=== PATIENT | female | born 1970 | race Hispanic/Latino ===

== ENCOUNTER 2017-05-15 20:35 | Emergency (ER) | payer BC ==
[~2017-05-15] VITALS: Ht 172.7 cm; Wt 79.8 kg
[2017-05-15 21:48] LABS: BASOPHILS % 0.5 % (0.0-1.0); EOSINOPHILS # (AUTO) 0.1 (0.0-0.4); EOSINOPHILS % 1.2 % (0.0-6.0); HEMOGLOBIN 12.6 g/dL (12.0-16.0); LYMPHOCYTES # (AUTO) 2.9 (1.0-3.2); MEAN CORPUSCULAR HEMOGLOBIN 28.5 pg (28-32); MEAN CORPUSCULAR HGB CONC 33.2 g/dL (31-35); MONOCYTES # (AUTO) 0.7 (0.2-0.8); MONOCYTES % 8.3 % (4.4-11.3); NEUTROPHILS # (AUTO) 4.8 (2.1-6.9); NEUTROPHILS % 55.6 % (38.7-80.0); PLATELET COUNT 283 x10e3/uL (140-360); RED BLOOD COUNT 4.42 x10e6/uL (3.6-5.1); RED CELL DISTRIBUTION WIDTH 13.8 % (11.7-14.4)
[2017-05-15 21:49] LABS: BILIRUBIN,URINE NEGATIVE (NEGATIVE); KETONES,URINE NEGATIVE (NEGATIVE); LEUKOCYTE ESTERASE ,URINE NEGATIVE (NEGATIVE); NITRITE,URINE NEGATIVE (NEGATIVE); PROTEIN,URINE DIPSTICK NEGATIVE (NEGATIVE); URINE UROBILINOGEN 0.2 mg/dL (0.2 - 1)
[2017-05-15 21:50] LABS: CLARITY,URINE CLEAR (CLEAR); COLOR,URINE YELLOW (YELLOW)
[2017-05-15 22:03] LABS: ALANINE AMINOTRANSFERASE 31 IU/L (0-55); ALBUMIN 3.9 g/dL (3.5-5.0); ALKALINE PHOSPHATASE 88 IU/L (40-150); AMYLASE 61 U/L (25-125); BLOOD UREA NITROGEN 6 mg/dL (7-26); BUN/CREATININE RATIO 8 (6-25); CALCIUM 8.8 mg/dL (8.4-10.2); CARBON DIOXIDE 26 mmol/L (22-29); CHLORIDE 104 mmol/L (98-107); CREATININE, SERUM 0.73 mg/dL (0.57-1.11); EST GLOMERULAR FILTRATION RATE > 60 ML/MIN (60-); GLUCOSE 101 mg/dL (74-118); LIPASE 28 U/L (8-78); SODIUM 139 mmol/L (136-145)
--- NOTE | 2017-05-15 23:17 | Diagnostic Imaging Report ---
EXAM: Right Upper Quadrant Ultrasound INDICATION: Right upper quadrant pain COMPARISON: None. TECHNIQUE: Transverse and longitudinal images of the right upper abdomen were obtained. FINDINGS: Liver: Size: 16.8 cm in the right midclavicular line, large Appearance: Increased echogenicity, smooth contour Mass: No focal masses Gallbladder: Stones/Sludge: None Wall: 0.3 cm Appearance: No wall thickening, pericholecystic fluid or hydrops. Sonographic Catalan's Sign: Negative Bile Ducts: Intrahepatic Ducts: No dilatation Extrahepatic Ducts: Common bile duct measures 0.3 cm, no dilatation Pancreas: Visualized portions of the pancreatic head, neck and proximal body are normal. Kidneys: Length: Right 10.3 cm Echogenicity: Normal Collecting System: No hydronephrosis Stone: None Cyst/Mass: None Vessels: Aorta: Visualized portions are normal Inferior Vena Cava: Visualized portions are normal Main Portal Vein: 1.0 cm, normal size with hepatopetal flow. Free Fluid: No ascites or pleural effusion IMPRESSION: Hepatomegaly and diffuse hepatic steatosis. Signed by: Dr. Dane Aguillon M.D. on 05/15/2017 11:13 PM
== END 2017-05-16 00:10 | disposition home or self-care (01) ==
LOC: ER 20:35
DX: R10.11 Right upper quadrant pain (principal); R10.13 Epigastric pain; R11.0 Nausea; R19.7 Diarrhea, unspecified
CPT/HCPCS: 36415; 76705; 80053; 81001; 82150; 83690; 85025; 99284

== ENCOUNTER → 2017-06-15 | Outpatient (CLI) | payer BC ==
[~2017-06-15] MED LIST: SINCALIDE 3 MCG/VIAL INJ ONE
--- NOTE | 2017-06-15 15:48 | Diagnostic Imaging Report ---
Hepatobiliary Scan with Gallbladder Ejection Fraction Clinical information: 46 F with RUQ abdominal pain, worsening over the past 1 month Technique: Following intravenous administration of 7.0 millicuries of Tc-99m mebrofenin, dynamic images of the abdomen in the anterior projection were obtained through 25 minutes. Sincalide (CCK analog) 1.7 micrograms was administered intravenously over 30 minutes with additional imaging for determination of gallbladder ejection fraction. Discussion: Perfusion of the liver is normal. Extraction of tracer by the liver parenchyma is normal. Tracer appears promptly within the biliary tract. The gallbladder begins to fill by 5 minutes post injection of tracer and fills adequately. Tracer is seen in the small bowel by 19 minutes. The gallbladder ejection fraction with sincalide is 28% (normal greater than 40%). Impression: 1. Filling of the gallbladder excludes acute cystic duct obstruction/acute cholecystitis. 2. The decreased gallbladder ejection fraction of 28% supports the clinical diagnosis of chronic cholecystitis/gallbladder dyskinesia. Signed by: Dr. Anh Ramirez M.D. on 06/15/2017 3:45 PM
== END | disposition home or self-care (01) ==
LOC: NM 06:36
PROVIDERS: ATTEND Family Medicine
DX: K81.1 Chronic cholecystitis (principal); K82.8 Other specified diseases of gallbladder
CPT/HCPCS: 78227; A9537; J2805

== ENCOUNTER → 2017-08-06 | Day surgery (SDC) | payer BC ==
[~2017-08-06] MED LIST changes: +FENTANYL CITRATE/PF 100MCG/2 ML INJ ONE; +FLUOXETINE HCL20 MG PO; +LIDOCAINE HCL 2% LOCAL INJ 5 ML SDV VIAL INJ ONE; +METFORMIN HCL500 MG PO; +METOCLOPRAMIDE HCL 10 MG/2ML VIAL ONE; +MIDAZOLAM HCL 2 MG/2 ML VIAL ONE; +PROPOFOL IV EMULSION 10 MG/ML 50 ML VIAL ONE; -SINCALIDE 3 MCG/VIAL INJ ONE
--- OUTSIDE RECORDS SUMMARY | 2017-08-06 11:47 | XMS REPORT | Continuity of Care Document ---
Author Author [facility] Organization [facility] Address [address] [place] [address] Phone Unavailable Care Team Providers Care Ore Mixer Name Role Phone NATE SPRINGER PCP Advance Directives No advance directive information available. Problems No problem information available. Medications No medication information available. Social History No social history information available. Hospital Discharge Instructions No hospital discharge instruction information available. Plan of Care Discharge Date 05/16/17 12:10am Disposition HOME, SELF-CARE Condition at Discharge Stable Instructions/Education Provided Abdominal Pain - Adult Forms Provided Work/School Excuse Prescriptions See Medication Section Referrals NATE SPRINGER Order Date: BONNIE Address: [address] [place] [address] [place] [address] Additional Instructions/Education TAKE MEDICATIONS PRESCRIBED FOLLOW-UP WITH YOUR PRIMARY CARE PROVIDER ON THURSDAY, YOU NEED TO GET SCHEDULED FOR AN OUTPATIENT HIDA SCAN LOW FAT DIET, NO FRIED FOODS, NO FATTY FOODS Functional Status No functional status information available. Allergies, Adverse Reactions, Alerts No known allergies. Immunizations No immunization information available. Vital Signs Acute Vital Signs Vital Response Date/Time Height 5 ft 8 in 05/15/2017 9:23pm Weight 176 lb 05/15/2017 9:23pm Body Mass Index 26.8 kg/m^2 05/15/2017 9:23pm Results Laboratory Results Test Name Result Units Flags Reference Collection Date/Time Result Date/ Time Comments White Blood Count 8.57 x10e3/uL 4.8-10.8 05/15/2017 9:40pm 05/15/2017 9 :48pm Red Blood Count 4.42 x10e6/uL 3.6-5.1 05/15/2017 9:40pm 05/15/2017 9: 48pm Hemoglobin 12.6 g/dL 12.0-16.0 05/15/2017 9:40pm 05/15/2017 9:48pm Hematocrit 38.0 % 34.2-44.1 05/15/2017 9:40pm 05/15/2017 9:48pm Mean Corpuscular Volume 86.0 fL 81-99 05/15/2017 9:40pm 05/15/2017 9: 48pm Mean Corpuscular Hemoglobin 28.5 pg 28-32 05/15/2017 9:40pm 05/15/2017 9:48pm Mean Corpuscular Hemoglobin Concent 33.2 g/dL 31-35 05/15/2017 9:40pm 05/15/2017 9:48pm Red Cell Distribution Width 13.8 % 11.7-14.4 05/15/2017 9:40pm 2017 9:48pm Platelet Count 283 x10e3/uL 140-360 05/15/2017 9:40pm 05/15/2017 9: 48pm Neutrophils (%) (Auto) 55.6 % 38.7-80.0 05/15/2017 9:40pm 05/15/2017 9: 48pm Lymphocytes (%) (Auto) 34.0 % 18.0-39.1 05/15/2017 9:40pm 05/15/2017 9: 48pm Monocytes (%) (Auto) 8.3 % 4.4-11.3 05/15/2017 9:40pm 05/15/2017 9: 48pm Eosinophils (%) (Auto) 1.2 % 0.0-6.0 05/15/2017 9:40pm 05/15/2017 9: 48pm Basophils (%) (Auto) 0.5 % 0.0-1.0 05/15/2017 9:40pm 05/15/2017 9:48pm IM GRANULOCYTES % 0.4 % 0.0-1.0 05/15/2017 9:40pm 05/15/2017 9:48pm Neutrophils # (Auto) 4.8 2.1-6.9 05/15/2017 9:40pm 05/15/2017 9:48pm Lymphocytes # (Auto) 2.9 1.0-3.2 05/15/2017 9:40pm 05/15/2017 9:48pm Monocytes # (Auto) 0.7 0.2-0.8 05/15/2017 9:40pm 05/15/2017 9:48pm Eosinophils # (Auto) 0.1 0.0-0.4 05/15/2017 9:40pm 05/15/2017 9:48pm Basophils # (Auto) 0.0 0.0-0.1 05/15/2017 9:40pm 05/15/2017 9:48pm Absolute Immature Granulocyte (auto 0.03 x10e3/uL 0-0.1 05/15/2017 9: 40pm 05/15/2017 9:48pm Urine Color YELLOW YELLOW 05/15/2017 9:40pm 05/15/2017 9:50pm Urine Clarity CLEAR CLEAR 05/15/2017 9:40pm 05/15/2017 9:50pm Urine Specific [place] 1.010 1.010-1.025 05/15/2017 9:40pm 2017 9:50pm Urine pH 6 5 - 7 05/15/2017 9:40pm 05/15/2017 9:50pm Urine Leukocyte Esterase NEGATIVE NEGATIVE 05/15/2017 9:40pm 2017 9:50pm Urine Nitrite NEGATIVE NEGATIVE 05/15/2017 9:40pm 05/15/2017 9:50pm Urine Protein NEGATIVE NEGATIVE 05/15/2017 9:40pm 05/15/2017 9:50pm Urine Glucose (UA) NEGATIVE NEGATIVE 05/15/2017 9:40pm 05/15/2017 9: 50pm Urine Ketones NEGATIVE NEGATIVE 05/15/2017 9:40pm 05/15/2017 9:50pm Urine Urobilinogen 0.2 mg/dL 0.2 - 1 05/15/2017 9:40pm 05/15/2017 9: 50pm Urine Bilirubin NEGATIVE NEGATIVE 05/15/2017 9:40pm 05/15/2017 9: 50pm Urine Blood NEGATIVE NEGATIVE 05/15/2017 9:40pm 05/15/2017 9:50pm Urine WBC NONE /HPF 0-5 05/15/2017 9:40pm 05/15/2017 10:05pm Urine RBC NONE /HPF 0-5 05/15/2017 9:40pm 05/15/2017 10:05pm Urine Bacteria NONE /HPF NONE 05/15/2017 9:40pm 05/15/2017 10:05pm Urine Epithelial Cells NONE /LPF NONE 05/15/2017 9:40pm 05/15/2017 10: 05pm Sodium Level 139 mmol/L 136-145 05/15/2017 9:40pm 05/15/2017 10:04pm Potassium Level 4.0 mmol/L 3.5-5.1 05/15/2017 9:40pm 05/15/2017 10: 04pm Chloride Level 104 mmol/L 98-107 05/15/2017 9:40pm 05/15/2017 10:04pm Carbon Dioxide Level 26 mmol/L 22-29 05/15/2017 9:40pm 05/15/2017 10: 04pm Anion Gap 13.0 mmol/L 8-16 05/15/2017 9:40pm 05/15/2017 10:04pm Blood Urea Nitrogen 6 mg/dL L 7-26 05/15/2017 9:40pm 05/15/2017 10:04pm Creatinine 0.73 mg/dL 0.57-1.11 05/15/2017 9:40pm 05/15/2017 10:04pm BUN/Creatinine Ratio 8 6-25 05/15/2017 9:40pm 05/15/2017 10:04pm Estimat Glomerular Filtration Rate > 60 ML/MIN 60- 05/15/2017 9:40pm 10:04pm Ranges were taken from the National Kidney Disease Education Program and the National Kidney Foundation literature. Reference ranges: 60 or greater: Normal 16-59 (for 3 consecutive months): Chronic kidney disease 15 or less: Kidney failure Glucose Level 101 mg/dL 74-118 05/15/2017 9:40pm 05/15/2017 10:04pm Calcium Level 8.8 mg/dL 8.4-10.2 05/15/2017 9:40pm 05/15/2017 10:04pm Total Bilirubin < 0.3 mg/dL 0.2-1.2 05/15/2017 9:40pm 05/15/2017 10: 04pm Aspartate Amino Transf (AST/SGOT) 27 IU/L 5-34 05/15/2017 9:40pm 2017 10:04pm Alanine Aminotransferase (ALT/SGPT) 31 IU/L 0-55 05/15/2017 9:40pm 11/2017 10:04pm Total Protein 8.0 g/dL 6.5-8.1 05/15/2017 9:40pm 05/15/2017 10:04pm Albumin 3.9 g/dL 3.5-5.0 05/15/2017 9:40pm 05/15/2017 10:04pm Globulin 4.1 g/dL H 2.3-3.5 05/15/2017 9:40pm 05/15/2017 10:04pm Albumin/Globulin Ratio 1.0 0.8-2.0 05/15/2017 9:40pm 05/15/2017 10: 04pm Alkaline Phosphatase 88 IU/L 40-150 05/15/2017 9:40pm 05/15/2017 10: 04pm Amylase Level 61 U/L 25-125 05/15/2017 9:40pm 05/15/2017 10:04pm Lipase 28 U/L 8-78 05/15/2017 9:40pm 05/15/2017 10:04pm Procedures Procedure Status Date Provider(s) US gallbladder Active 05/15/17 DOT TRACY MD Encounters Encounter Location Arrival/Admit Date Discharge/Depart Date Attending Provider Departed Emergency Room [facility] 05/15/17 8:35pm 12:10am DOT TRACY MD
--- OUTSIDE RECORDS SUMMARY | 2017-08-06 11:47 | XMS REPORT ---
Author Author [facility] Address Unknown Phone Unavailable Care Team Providers Care Crown Ironer Name Role Phone NATE SPRINGER Unavailable Unavailable DOT TRACY Unavailable Unavailable Problems This patient has no known problems. Allergies, Adverse Reactions, Alerts This patient has no known allergies or adverse reactions. Medications This patient has no known medications. Results Test Description Test Time Test Comments Text Results Atomic Results Result Comments HEPTOBILIARY W PHARM [place] [address] Patient Name: IVETTE DYSON MR #: [id number] : 1970 Age/Sex: 46/F Req #: [id number] [facility] Physician: Ordered by: NATE SPRINGER Report #: [id number] Location: [place] Room/Bed: Procedure: [id number] NM/HEPTOBILIARY W PHARM Exam Date: 06/15/17 Exam Time: 08 REPORT STATUS: Signed Hepatobiliary Scan with Gallbladder Ejection Fraction Clinical information: 46 F with RUQ abdominal pain, worsening over the past 1 month Technique: Following intravenous administration of 7.0 millicuries of Tc-99m mebrofenin, dynamic images of the abdomen in the anterior projection were obtained through 25 minutes. Sincalide (CCK analog) 1.7 micrograms was administered intravenously over 30 minutes with additional imaging for determination of gallbladder ejection fraction. Discussion: Perfusion of the liver is normal. Extraction of tracer by the liver parenchyma is normal. Tracer appears promptly within the biliary tract. The gallbladder begins to fill by 5 minutes post injection of tracer and fills adequately. Tracer is seen in the small bowel by 19 minutes. The gallbladder ejection fraction with sincalide is 28% (normal greater than 40%). Impression: 1. Filling of the gallbladder excludes acute cystic duct obstruction/acute cholecystitis. 2. The decreased gallbladder ejection fraction of 28% supports the clinical diagnosis of chronic cholecystitis/gallbladder dyskinesia. Signed by: Dr. Dilip Ramirez M.D. on 06/15/2017 3:45 PM Dictated By: DILIP RAMIREZ MD 1548 COPY TO: NATE SPRINGER GALLBLADDER [place] [address] Patient Name: IVETTE GONZALEZ MR #: [id number] : 1970 Age/Sex: 46/F Req #: [id number] Adm Physician: Ordered by: DOT TRACY MD Report #: [id number] Location: ER Room/Bed: ___ Procedure: [id number] US/US GALLBLADDER Exam Date: 05/15/17 Exam Time: 2 REPORT STATUS: Signed EXAM: Right Upper Quadrant Ultrasound INDICATION: Right upper quadrant pain COMPARISON : None. TECHNIQUE: Transverse and longitudinal images of the right upper abdomen were obtained. FINDINGS: Liver: Size: 16.8 cm in the right midclavicular line, large Appearance: Increased echogenicity, smooth contour Mass: No focal masses Gallbladder: Stones/Sludge: None Wall: 0.3 cm Appearance: No wall thickening, pericholecystic fluid or hydrops. Sonographic Catalan's Sign: Negative Bile Ducts: Intrahepatic Ducts: No dilatation Extrahepatic Ducts: Common bile duct measures 0.3 cm, no dilatation Pancreas: Visualized portions of the pancreatic head, neck and proximal body are normal. Kidneys: Length: Right 10.3 cm Echogenicity: Normal Collecting System: No hydronephrosis Stone: None Cyst/Mass: None Vessels: Aorta: Visualized portions are normal Inferior Vena Cava: Visualized portions are normal Main Portal Vein: 1.0 cm, normal size with hepatopetal flow. Free Fluid: No ascites or pleural effusion IMPRESSION: Hepatomegaly and diffuse hepatic steatosis. Signed by: Dr. Dane Aguillon M.D. on 05/15/2017 11:13 PM Dictated By: DANE PERSON MD 0927 COPY TO: DOT TRACY MD
--- NOTE | 2017-08-06 15:04 | Operative Report ---
DATE OF PROCEDURE: August 06, 2017 REFERRING PHYSICIANS: Efrain Bella MD, and Alek Wesley MD PROCEDURE PERFORMED: Esophagogastroduodenoscopy with biopsies. INDICATIONS FOR EGD: Nausea, heartburn, and excessive belching. MEDICATION: Patient was done under MAC. Please see anesthesiologist's note. PROCEDURE: With the patient in the left lateral decubitus position, the flexible fiberoptic Olympus gastroscope was introduced into the esophagus under direct visualization without any difficulty. There was some patchy erythema noted in the distal esophagus. The scope was then advanced with ease into the stomach, and mucosa overlying the antrum and the body revealed some patchy erythema and low-grade to moderate edema, and biopsies were obtained and sent to stain for H. pylori. The pylorus was of normal contour and shape. It was intubated with ease, and the scope was advanced all the way to the 2nd portion of the duodenum. The scope was then withdrawn slowly. Mucosa overlying the proximal 2nd portion and the duodenal bulb appeared to be within normal limits. The scope was then withdrawn back into the stomach and retroflexed, and mucosa overlying the fundus and the cardia appeared to be within normal limits. The scope was then straightened out. It was subsequently withdrawn. Patient tolerated the procedure well. IMPRESSION 1. Distal esophagitis, mild. 2. Gastritis, biopsied. Biopsies sent to stain for H. pylori. PLAN: Follow up histology. Initiate Protonix 40 mg 1 p.o. q.a.m. a.c. Job#: [id number] cc:MD ALEK WOO MD
== END | disposition home or self-care (01) ==
LOC: OR 11:45
PROVIDERS: ATTEND Internal Medicine Gastroenterology
DX: K29.70 Gastritis, unspecified, without bleeding (principal); K20.9 Esophagitis, unspecified; K21.9 Gastro-esophageal reflux disease without esophagitis; K82.8 Other specified diseases of gallbladder; E11.9 Type 2 diabetes mellitus without complications; R16.0 Hepatomegaly, not elsewhere classified; K76.0 Fatty (change of) liver, not elsewhere classified; F41.9 Anxiety disorder, unspecified; Z01.810 Encounter for preprocedural cardiovascular examination; Z79.84 Long term (current) use of oral hypoglycemic drugs
CPT/HCPCS: 36415; 43239; 81025; 82948; 93005; J2001; J2250; J2765

== ENCOUNTER → 2017-12-02 | Day surgery (SDC) | payer BC ==
[~2017-12-02] MED LIST changes: +HYOSCYAMINE SULFATE 0.5 MG/ML AMP ONE; -LIDOCAINE HCL 2% LOCAL INJ 5 ML SDV VIAL INJ ONE; -METOCLOPRAMIDE HCL 10 MG/2ML VIAL ONE
[2017-12-02 14:35] VITALS: BP 115/82
--- NOTE | 2017-12-02 14:51 | Operative Report ---
DATE OF PROCEDURE: December 02, 2017 REFERRING PHYSICIAN: Dr. Nate Springer. PROCEDURE PERFORMED: Colonoscopy with biopsies. INDICATIONS FOR COLONOSCOPY: Lower abdominal pain, fecal urgency. MEDICATION: Patient was done under MAC. Please see anesthesiologist's note. PROCEDURE: Patient in left lateral decubitus position. Flexible fiberoptic Olympus colonoscope was inserted into the rectum with ease and advanced all the way to the cecum. Mucosa overlying the cecum appeared to be within normal limits. The ileocecal valve was intubated and the scope was advanced into the terminal ileum. Biopsies were obtained. The scope was then withdrawn back into the colon. It was then withdrawn slowly. Mucosa overlying the ascending, transverse appeared to be within normal limits. Mild patchy inflammatory changes were noted in the left colon and random biopsies were obtained. The scope was then retroflexed into the distal rectum and small internal hemorrhoids were noted, none of which was actively bleeding. The scope was then straightened out and it was subsequently withdrawn. Patient tolerated the procedure well. IMPRESSIONS 1. Mild patchy left-sided colitis. 2. Internal hemorrhoids, none actively bleeding. PLAN: Follow up histology. Initiate Bentyl 10 mg 1 p.o. t.i.d. VSL #3 1 p.o. daily. Patient might benefit from a followup colonoscopy in 5 years. Job#: [id number] cc:NATE SPRINGER MD
== END | disposition home or self-care (01) ==
LOC: OR 10:43
PROVIDERS: ATTEND Internal Medicine Gastroenterology
DX: K64.8 Other hemorrhoids (principal); K51.50 Left sided colitis without complications; R15.2 Fecal urgency; R10.30 Lower abdominal pain, unspecified; E11.9 Type 2 diabetes mellitus without complications; G47.419 Narcolepsy without cataplexy; F32.9 Major depressive disorder, single episode, unspecified; Z79.84 Long term (current) use of oral hypoglycemic drugs
CPT/HCPCS: 36415; 45380; 81025; 82948; J1980; J2250; 45378

== ENCOUNTER 2018-06-25 17:10 | Emergency (ER) | payer BC ==
[~2018-06-25] VITALS: Ht 172.7 cm; Wt 79.8 kg
[~2018-06-25 17:10] MED LIST changes: -FENTANYL CITRATE/PF 100MCG/2 ML INJ ONE; -HYOSCYAMINE SULFATE 0.5 MG/ML AMP ONE; -MIDAZOLAM HCL 2 MG/2 ML VIAL ONE; -PROPOFOL IV EMULSION 10 MG/ML 50 ML VIAL ONE
--- NOTE | 2018-06-25 18:25 | Diagnostic Imaging Report ---
Examination: Single AP view of the chest. COMPARISON: None. INDICATION: Chest pain, shortness of breath DISCUSSION: Lines/tubes: None. Lungs: No pneumonia or pulmonary edema. Pleura: No pleural effusion or pneumothorax. Heart and mediastinum: The heart and the mediastinum are unremarkable. Bones and soft tissues: No acute bony abnormalities. IMPRESSION: 1. No acute cardiopulmonary abnormalities. Signed by: Dr. Etienne Humphrey M.D. on 06/25/2018 6:22 PM
[2018-06-25 19:52] VITALS: BP 122/80
== END 2018-06-25 20:09 | disposition home or self-care (01) ==
LOC: ER 17:10
DX: J20.9 Acute bronchitis, unspecified (principal); J30.1 Allergic rhinitis due to pollen; E11.9 Type 2 diabetes mellitus without complications; G47.419 Narcolepsy without cataplexy; Z79.84 Long term (current) use of oral hypoglycemic drugs
CPT/HCPCS: 71045; 93005; 99283

== ENCOUNTER 2018-08-06 17:56 | Emergency (ER) | payer BC ==
[~2018-08-06] VITALS: Ht 165.1 cm; Wt 79.8 kg
[2018-08-06 18:35] LABS: BASOPHILS % 0.5 % (0.0-1.0); EOSINOPHILS # (AUTO) 0.1 (0.0-0.4); EOSINOPHILS % 1.3 % (0.0-6.0); HEMATOCRIT 38.8 % (34.2-44.1); LYMPHOCYTES % 25.6 % (18.0-39.1); MEAN CORPUSCULAR HEMOGLOBIN 28.6 pg (28-32); MEAN CORPUSCULAR HGB CONC 33.5 g/dL (31-35); MEAN CORPUSCULAR VOLUME 85.5 fL (81-99); MONOCYTES # (AUTO) 0.5 (0.2-0.8); MONOCYTES % 6.6 % (4.4-11.3); NEUTROPHILS # (AUTO) 5.1 (2.1-6.9); NEUTROPHILS % 65.5 % (38.7-80.0); PLATELET COUNT 284 x10e3/uL (140-360); RED BLOOD COUNT 4.54 x10e6/uL (3.6-5.1); RED CELL DISTRIBUTION WIDTH 16.2 % (11.7-14.4)
[2018-08-06] MEDS ORDERED: MORPHINE SULFATE 2 MG/ML SYR 1ML IV STA (18:52)
[2018-08-06] MEDS ORDERED: ONDANSETRON HCL INJ 2MG/ML 2ML 2 MG/ML VIAL IV ONE (18:52)
[2018-08-06] MEDS ORDERED: SODIUM CHLORIDE 0.9% 1000ML 1,000 ML IV ONE (19:00)
[2018-08-06] MEDS ORDERED: MORPHINE SULFATE INJ 4 MG/ML INJ 1ML IV ONE (19:00)
[2018-08-06 19:09] LABS: ALANINE AMINOTRANSFERASE 43 IU/L (0-55); ALBUMIN 3.4 g/dL (3.5-5.0); ALKALINE PHOSPHATASE 89 IU/L (40-150); ANION GAP 10.7 mmol/L (8-16); BLOOD UREA NITROGEN 7 mg/dL (7-26); BUN/CREATININE RATIO 9 (6-25); CALCIUM 8.8 mg/dL (8.4-10.2); CARBON DIOXIDE 27 mmol/L (22-29); CHLORIDE 102 mmol/L (98-107); CREATININE, SERUM 0.77 mg/dL (0.57-1.11); EST GLOMERULAR FILTRATION RATE > 60 ML/MIN (60-); GLUCOSE 193 mg/dL (74-118); POTASSIUM 3.7 mmol/L (3.5-5.1); SODIUM 136 mmol/L (136-145)
--- NOTE | 2018-08-06 20:31 | NUR ---
urine re-collected and sent off to the lab.
[2018-08-06 20:34] LABS: BILIRUBIN,URINE NEGATIVE (NEGATIVE); CLARITY,URINE CLEAR (CLEAR); COLOR,URINE YELLOW (YELLOW); KETONES,URINE NEGATIVE (NEGATIVE); LEUKOCYTE ESTERASE ,URINE NEGATIVE (NEGATIVE); NITRITE,URINE NEGATIVE (NEGATIVE); PROTEIN,URINE DIPSTICK NEGATIVE (NEGATIVE); URINE UROBILINOGEN 0.2 mg/dL (0.2 - 1)
--- NOTE | 2018-08-06 20:52 | Diagnostic Imaging Report ---
EXAM: CT Abdomen and Pelvis WITH contrast INDICATION: ^ABD BLOATING AND PAIN ^[id number] ^[id number] COMPARISON: Gallbladder ultrasound 05/15/2017 TECHNIQUE: Abdomen and pelvis were scanned utilizing a multidetector helical scanner from the lung base to the pubic symphysis after administration of IV contrast. Coronal and sagittal reformations were obtained. Routine protocol was performed. Scan was performed when during portal venous phase. IV CONTRAST: 100 mL of Isovue 370 ORAL CONTRAST: None RADIATION DOSE: Total DLP: 416 mGy*cm Estimated effective dose: (DLP x 0.015 x size factor) mSv COMPLICATIONS: None FINDINGS: LINES and TUBES: None. LOWER THORAX: Unremarkable HEPATOBILIARY: No focal hepatic lesions. No biliary ductal dilation. GALLBLADDER: No radio-opaque stones or sludge. No wall thickening. SPLEEN: No splenomegaly. PANCREAS: No focal masses or ductal dilatation. ADRENALS: No adrenal nodules KIDNEYS/URETERS: Kidneys enhance symmetrically. No hydronephrosis. No cystic or solid mass lesions. No stones. GI TRACT: Mildly prominent fluid-filled loops of small bowel in the left upper quadrant on series 2, image 21 with associated minimal wall thickening. Otherwise, no bowel dilatation or obstruction. Appendix is normal. PELVIC ORGANS/BLADDER: Unremarkable. LYMPH NODES: No lymphadenopathy. VESSELS: Unremarkable. PERITONEUM / RETROPERITONEUM: No free air or fluid. BONES: Unremarkable. SOFT TISSUES: Unremarkable. IMPRESSION: Prominent fluid-filled loops of the small bowel in the left upper quadrant with associated mild wall thickening suggestive of nonspecific enteritis. Signed by: Dr. Keri Adames M.D. on 08/06/2018 8:49 PM
[2018-08-06 20:54] LABS: EPITHELIAL CELLS,URINE FEW /LPF; RBC,URINE 0-5 /HPF (0-5)
[2018-08-06] MEDS ORDERED: IOPAMIDOL 370 MG/ML 200 ML INFUS..BTL INJ ONE (22:33)
[2018-08-06] MEDS ORDERED: SODIUM CHLORIDE 0.9% 50ML 50 ML ONE (22:33)
== END 2018-08-06 21:51 | disposition home or self-care (01) ==
LOC: ER 17:56
DX: R10.9 Unspecified abdominal pain (principal); M54.5 Low back pain; K52.29 Other allergic and dietetic gastroenteritis and colitis; E11.9 Type 2 diabetes mellitus without complications; G47.419 Narcolepsy without cataplexy
CPT/HCPCS: 36415; 74177; 80053; 81001; 85025; 99284; J2270; J2405; J7030; Q9967

== ENCOUNTER → 2018-08-20 | Day surgery (SDC) | payer BC ==
[~2018-08-20] MED LIST changes: +FENTANYL CITRATE/PF 100MCG/2 ML INJ ONE; +LIDOCAINE HCL 2% LOCAL INJ 5 ML SDV VIAL INJ ONE; +MIDAZOLAM HCL 2 MG/2 ML VIAL ONE; +PROPOFOL IV EMULSION 10 MG/ML 50 ML VIAL ONE
[2018-08-20 16:25] VITALS: BP 112/77
--- NOTE | 2018-08-20 22:29 | Operative Report ---
DATE OF PROCEDURE: 08/20/2018 SURGEON: Jean-Paul Sinclair MD PROCEDURE: EGD with biopsies. INDICATIONS FOR EGD: Heartburn, bloating, nausea. MEDICATIONS: The patient was done under MAC, please see anesthesiologist's note. PROCEDURE IN DETAIL: With the patient in left lateral decubitus position, a flexible fiberoptic Olympus gastroscope was introduced into the esophagus under direct visualization without any difficulty. There were some patchy erythema noted in distal esophagus. A minute nodule was noted at the GE junction and was biopsied. The scope was then advanced with ease into the stomach. Mucosa overlying the antrum and the body revealed some patchy erythema, [id number]-vo-[id number] edema, and biopsies were obtained and sent to stain for H pylori. The pylorus was of normal contour and shape, it was intubated with ease and the scope was advanced all the way to the second portion of the duodenum. The scope was then withdrawn slowly and biopsies were obtained from the second portion and the duodenal bulb to rule out sprue. The scope was then withdrawn back into the stomach and retroflexed and mucosa overlying the fundus and cardia appeared to be within normal limits. The scope was then straightened out, it was subsequently withdrawn. The patient tolerated the procedure well. IMPRESSION: 1. Mild distal esophagitis. 2. Minute nodule at GE junction, biopsied. 3. Gastritis, biopsied. Biopsies sent to stain for Helicobacter pylori. 4. Rule out sprue. PLAN: Follow up histology. Initiate Protonix 40 mg one p.o. q.a.m. before meals. Jean-Paul Sinclair MD [facility] [place] /[id number] cc: Efrain Bella
== END | disposition home or self-care (01) ==
LOC: OR 11:52
PROVIDERS: ATTEND Internal Medicine Gastroenterology
DX: K29.50 Unspecified chronic gastritis without bleeding (principal); K20.9 Esophagitis, unspecified; K22.8 Other specified diseases of esophagus; A04.8 Other specified bacterial intestinal infections; K52.9 Noninfective gastroenteritis and colitis, unspecified; L29.0 Pruritus ani; E11.9 Type 2 diabetes mellitus without complications; Z79.84 Long term (current) use of oral hypoglycemic drugs
CPT/HCPCS: 36415; 43239; 82948; 84702; J2001; J2250; J2704

== ENCOUNTER 2019-11-11 08:43 | Emergency (ER) | payer BC ==
[~2019-11-11] VITALS: Ht 165.1 cm; Wt 79.8 kg
[~2019-11-11 08:43] MED LIST changes: -FENTANYL CITRATE/PF 100MCG/2 ML INJ ONE; -LIDOCAINE HCL 2% LOCAL INJ 5 ML SDV VIAL INJ ONE; -MIDAZOLAM HCL 2 MG/2 ML VIAL ONE; -PROPOFOL IV EMULSION 10 MG/ML 50 ML VIAL ONE
--- NOTE | 2019-11-11 09:33 | Emergency Department Note ---
History of Present Illnes History of Present Illness Chief Complaint: General Medicine Complaints History of Present Illness This is a 49 year old female Patient in from home with complaints of pain that radiates from the left side of her neck down her left arm since Thursday. Patient states the pain is 10/10. Historian: Patient Arrival Mode: Car Information Broker Required: No Onset (how long ago): day(s) (5) Location: LEFT NECK/SHOULDER Quality: PAIN Radiation: Reports extremity (TO ARM) Severity: severe Onset quality: gradual Timing of current episode: constant Chronicity: new Context: Denies recent illness, Denies trauma/injury Relieving factors: none Exacerbating factors: movement Associated symptoms: Reports denies other symptoms; Denies chest pain, Denies shortness of breath, Denies weakness Treatments prior to arrival: none Past Medical/Family History Physician Review I have reviewed the patient's past medical and family history. Any updates have been documented here. Past Medical History Recent Fever: No Clinical Suspicion of Infectio: No New/Unexplained Change in Ment: No Past Medical History: Diabetes, Seizure Disorder Other Medical History: NARCOLEPSY Past Surgical History: Other Surgery: C/S X3 Social History Smoking Cessation: Never Smoker Counseling Performed: No Alcohol Use: None Any Illegal Drug Use: No TB Exposure/Symptoms: No Physically hurt or threatened: No Family History Family history of heart diseas: No Other Last Tetanus: UTD Any Pre-Existing Lines (PICC,: No Review of Systems Review of Systems Constitutional: Reports no symptoms EENTM: Reports no symptoms Cardiovascular: Reports no symptoms Respiratory: Reports no symptoms Gastrointestinal: Reports no symptoms Genitourinary: Reports no symptoms Musculoskeletal: Reports as per HPI Integumentary: Reports no symptoms Neurological: Reports no symptoms Psychological: Reports no symptoms Endocrine: Reports no symptoms Hematological/Lymphatic: Reports no symptoms Physical Exam Related Data Allergies: Coded Allergies: No Known Allergies (Unverified , 05/15/17) Triage Vital Signs Vital Signs Date Time Temp Pulse Resp B/P (MAP) Pulse Ox O2 Delivery O2 Flow Rate FiO2 11/11/19 09:11 98.0 83 14 119/92 100 Room Air Vital signs reviewed: Yes Physical Exam CONSTITUTIONAL Constitutional: Present well-developed, Present well-nourished HENT HENT: Present normocephalic, Present atraumatic, Present oropharynx clear/moist, Present nose normal HENT L/R: Present left ext ear normal, Present right ext ear normal EYES Eyes: Reports PERRL, Reports conjunctivae normal NECK Neck: Present ROM normal, Present other (MILD TENDERNESS LEFT PARASPINAL CERVICAL MUSCLES) PULMONARY Pulmonary: Present effort normal, Present breath sounds normal CARDIOVASCULAR Cardiovascular: Present regular rhythm, Present heart sounds normal, Present capillary refill normal, Present normal rate GASTROINTESTINAL Abdominal: Present soft, Present nontender, Present bowel sounds normal GENITOURINARY Genitourinary: Present exam deferred SKIN Skin: Present warm, Present dry MUSCULOSKELETAL Musculoskeletal: Present ROM normal, Present other (TENDERNESS/SPASM LEFT TRAPEZIUS MUSCLE AND LEFT SHOULDER MUSCLES, PAIN WITH ACTIVE AND PASSIVE MOVEMENT OF LEFT SHOULDER) NEUROLOGICAL Neurological: Present alert, Present oriented x 3, Present no gross motor or sensory deficits PSYCHOLOGICAL Psychological: Present mood/affect normal, Present judgement normal Assessment & Plan Medical Decision Making MDM MUSCLE SPASM Reassessment Reassessment DC WITH NAPROSYN 500 AND ROBAXIN 500 Assessment & Plan Final Impression: (1) Muscle spasm Depart Disposition: HOME, SELF-CARE Last Vital Signs Date Time Temp Pulse Resp B/P (MAP) Pulse Ox O2 Delivery O2 Flow Rate FiO2 11/11/19 09:11 98.0 83 14 119/92 100 Room Air Home Meds Reported Medications Metformin Hcl (METFORMIN HCL) 500 Mg Tablet, 500 MG PO BID, #60 TAB 07/31/17 YOHANNES LR MD Nov 11, 2019 09:32
--- OUTSIDE RECORDS SUMMARY | 2019-11-11 10:22 | XMS REPORT | Continuity of Care Document ---
Author Author [facility] t Organization [facility] Address [address] [place] [address] Phone Unavailable Care Team Providers Care Artist Color Separation Name Role Phone NATE SPRINGER PCP Froylan PEDERSON Attphys Unavailable Froylan ZUÑIGA Attphys Unavailable Brian EMMANUEL Attphys Unavailable NATE SPRINGER Attphys Unavailable Yovanny TRACY Attphys Unavailable Payers Payer Name Policy Type Policy Number Effective Date Expiration Date Brian davis [employer] [facility] [id number] 2016 00:00:00 [facility] Problems This patient has no known problems. Allergies, Adverse Reactions, Alerts This patient has no known allergies or adverse reactions. Medications Ordered Medication Name Filled Medication Name Start Date Stop Da te Current Medication? Ordering Clinician Indication Dosage Frequency Signature (SIG) Comments Components Source Metformin Hcl 500 Mg Tablet Metformin Hcl 500 Mg Tablet Yes 500 Twice A Day [facility] Fluoxetine Hcl 20 Mg Capsule, 20 Mg Oral Fluoxetine Hc l 20 Mg Capsule, 20 Mg Oral 2017-11-24 00:00:00 No 20 Daily [facility] Procedures Procedure Date / Time Performed Performing Clinician [facility] e US abdomen complete 2019-03-15 00:00:00 MARCELLA KAUFFMAN [facility] Computed tomography of abdomen and pelvis with contrast 2019 [facility] EGD BIOPSY SINGLE/MULTIPLE 2018-08-20 00:00:00 PORFIRIO SIM [facility] Computed tomography of abdomen and pelvis with contrast 2018 00:00:00 EDISON CANAS [facility] X-ray of chest, single view 2018-06-25 00:00:00 SAMIR MACIAS [facility] Encounters Start Date/Time End Date/Time Encounter Type [facility] Encounter ID Source 2019-03-15 13:55:00 2019-03-15 19:41:00 Departed Emergency Room 1 NAVJOT PEDERSON [facility] [id number] [facility] 2018-08-20 11:52:00 2018-08-20 11:52:00 Registered Surgical Day [facility] [id number] [facility] 2018-08-06 17:56:00 2018-08-06 21:51:00 Departed Emergency Room 1 IRVING ZUÑIGA [facility] [id number] [facility] 2018-06-25 17:10:00 2018-06-25 20:09:00 Departed Emergency Room 1 SAMIR EMMANUEL [facility] [id number] [facility] 2017-12-02 10:43:00 2017-12-02 10:43:00 Registered Surgical Day Care [facility] [id number] [facility] 2017-05-15 20:35:00 2017-05-16 00:10:00 Departed Emergency Room ER TRACY DOT [facility] [id number] [facility] Results Test Description Test Time Test Comments Results Result Comments Source CT ABDOMEN/PELVIS W 2019-03-15 17:35:00 [place] [address] Patient Name: IVETTE DYSON MR #: [id number] : 1970 Age/Sex: 48/F Req #: [id number] Adm Physician: Ordered by: MARCELLA KAUFFMAN NP Report #: [id number] Location: ER Room/Bed: Procedure: [id number] CT/CT ABDOMEN/PELVIS W Exam Date: 03/15/19 Exam Time: 1720 REPORT STATUS: Signed CT of the abdomen and pelvis, with contrast. History: Abdominal pain. Comparison: Abdominal ultrasound from earlier 03/15/2019, CT abdomen/pelvis with contrast from 08/06/2018. Technique: Multidetector CT scanning of the abdomen and pelvis was performed from the level of the lung bases to the inferior pubic rami after intravenous and oral administration of contrast. Coronal and sagittal multiplanar reformations were obtained. RADIATION DOSE: Total DLP: 338.86 mGy*cm Dose modulation, iterative reconstruction, and/or weight based adjustment of the mA/kV was utilized to reduce the radiation dose to as low as reasonably achievable. FINDINGS: The visualized lungs are clear. The imaged portion of the heart demonstrates no significant abnormalities. The liver is diffusely decreased in attenuation compatible with fatty infiltration. No focal hepatic abnormality is identified. A subcentimeter radiopaque stone is identified within the gallbladder neck. There is no evidence for gallbladder wall thickening or pericholecystic fluid. There is no biliary ductal dilatation. The stomach is moderately distended with ingested material/fluid. There is mild wall thickening of the pylorus and proximal duodenum (best appreciated on axial image 32) without significant adjacent inflammatory change. The spleen, pancreas, and bilateral adrenal glands are unremarkable. The kidneys are normal in size and location and enhance symmetrically. There is no evidence for hydronephrosis. The ureters are normal course and caliber. The urinary bladder is only partially distended but demonstrates no significant abnormalities. Phleboliths are noted within the pelvis. The uterus is heterogeneous, recommend correlation with menstrual cycle. No abnormal adnexal masses are identified. The abdominal aorta is normal course and caliber. The IVC is unremarkable. Please note evaluation of the bowel is limited without the use of enteric contrast material. The visualized loops of small and large bowel demonstrate no evidence of obstruction or inflammation. There is no ascites or intraperitoneal free air. No abnormally enlarged lymph nodes are identified within the abdomen or pelvis. There is a tiny fat-containing umbilical hernia present. The osseous structures demonstrate no evidence for acute fracture or destructive process. The extraperitoneal soft tissues are unremarkable. IMPRESSION: Mild wall thickening of the pylorus and proximal duodenum without significant adjacent inflammatory change. Findings may reflect normal peristalsis and underdistention. A gastritis/duodenitis could have a similar appearance. No other acute abdominopelvic process identified. Signed by: Dr. Simeon Malin MD on 03/15/2019 5:46 PM Dictated By: SIMEON MALIN MD 45 Transcribed By: KAREN on 03/15/191745 COPY TO: MARCELLA KAUFFMAN NP Sodium Level 2019-03-15 16:06:00 Test Item Sodium Level (test code = 2951-2) 136 136-145 [facility] Jwksp6535-08-74 16:06:00* Test Item Value Reference Range Interpretation Comments Potassium Level (test code = 2823-3) 3.8 3.5-5.1 [facility] CampusChloride Cyvmj3909-85-67 16:06:00* Test Item Value Reference Range Interpretation Comments Chloride Level (test code = 2075-0) 101 98-107 [facility] CampusCarbon Dioxide Cjlmg6331-60-57 16:06:00* Test Item Value Reference Range Interpretation Comments Carbon Dioxide Level (test code = 2028-9) 26 22-29 [facility] CampusAnion Uzs6071-92-31 16:06:00* Test Item Value Reference Range Interpretation Comments Anion Gap (test code = 87288-2) 12.8 8-16 [facility] CampusBlood Urea Ufdvobwv2871-98-87 16:06:00* Test Item Value Reference Range Interpretation Comments Blood Urea Nitrogen (test code = 3094-0) 6 7-26 L [facility] CampusCreatinine2020-01-07 16:06:00* Test Item Value Reference Range Interpretation Comments Creatinine (test code = 2160-0) 0.78 0.57-1.11 [facility] CampusBUN/Creatinine Ramsx9444-72-54 16:06:00* Test Item Value Reference Range Interpretation Comments BUN/Creatinine Ratio (test code = 3097-3) 8 6-25 [facility] CampusEstimat Glomerular Filtration Rate 2019-03-15 16:06:00* Test Item Value Reference Range Interpretation Comments Estimat Glomerular Filtration Rate (test code = 775485931) > 60 >60 Ranges were taken from the National Kidney Disease Education Program and the [facility] Kidney Foundation literature.Reference ranges:60 or greater: Jokref74-25 ( for 3 consecutive months): Chronic kidney disease 15 or less: Kidney failureWise Health System East CampusGlucose Yaqvy3133-73-50 16:06:00* Test Item Value Reference Range Interpretation Comments Glucose Level (test code = QQA9336) 205 74-118 H [facility] CampusCalcium Iqyny9449-96-65 16:06:00* Test Item Value Reference Range Interpretation Comments Calcium Level (test code = 34954-4) 8.6 8.4-10.2 [facility] CampusTotal Efipnbemp5765-99-26 16:06:00* Test Item Value Reference Range Interpretation Comments Total Bilirubin (test code = 1975-2) 0.4 0.2-1.2 [facility] CampusAspartate Amino Transf (AST/SGOT) 2019-03-15 16:06:00* Test Item Value Reference Range Interpretation Comments Aspartate Amino Transf (AST/SGOT) (test code = Aspartate Amino Transf (AST/SGOT)) 24 5-34 [facility] CampusAlanine Aminotransferase (ALT/SGPT) 2019-03-15 16:06:00* Test Item Value Reference Range Interpretation Comments Alanine Aminotransferase (ALT/SGPT) (test code = 1742-6) 27 0-55 [facility] CampusTotal Khstzid4172-78-16 16:06:00* Test Item Value Reference Range Interpretation Comments Total Protein (test code = 2885-2) 6.6 6.5-8.1 [facility] CampusAlbumin2020-01-07 16:06:00* Test Item Value Reference Range Interpretation Comments Albumin (test code = 1751-7) 3.3 3.5-5.0 L [facility] CampusGlobulin2020-01-07 16:06:00* Test Item Value Reference Range Interpretation Comments Globulin (test code = 82473-3) 3.3 2.3-3.5 [facility] CampusAlbumin/Globulin Kwxrp1227-60-06 16:06:00 * Test Item Value Reference Range Interpretation Comments Albumin/Globulin Ratio (test code = 1759-0) 1.0 0.8-2.0 [facility] CampusAlkaline Ktvghtnxqkv8558-99-78 16:06:00* Test Item Value Reference Range Interpretation Comments Alkaline Phosphatase (test code = 6768-6) 82 40-150 [facility] CampusLipase2020-01-07 16:06:00* Test Item Value Reference Range Interpretation Comments Lipase (test code = 3040-3) 37 8-78 [facility] CampusHuman Chorionic Gonadotropin, Qual 2019-03-15 16:01:00* Test Item Value Reference Range Interpretation Comments Human Chorionic Gonadotropin, Qual (test code = 2118-8) NEGATIVE NEGATIVE [facility] CampusWhite Blood Vlomu7192-98-20 15:44:00* Test Item Value Reference Range Interpretation Comments White Blood Count (test code = 6690-2) 5.37 4.8-10.8 [facility] CampusRed Blood Fljue9866-27-60 15:44:00* Test Item Value Reference Range Interpretation Comments Red Blood Count (test code = 789-8) 4.63 3.6-5.1 [facility] CampusHemoglobin2020-01-07 15:44:00* Test Item Value Reference Range Interpretation Comments Hemoglobin (test code = 47017-3) 13.3 12.0-16.0 [facility] CampusHematocrit2020-01-07 15:44:00* Test Item Value Reference Range Interpretation Comments Hematocrit (test code = 4544-3) 40.7 34.2-44.1 [facility] CampusMean Corpuscular Ukfyfj0556-47-71 15:44:00* Test Item Value Reference Range Interpretation Comments Mean Corpuscular Volume (test code = 787-2) 87.9 81-99 [facility] CampusMean Corpuscular Wyffdhwpza3270-95-25 15:44:00* Test Item Value Reference Range Interpretation Comments Mean Corpuscular Hemoglobin (test code = 785-6) 28.7 28-32 [facility] CampusMean Corpuscular Hemoglobin Concent 2019-03-15 15:44:00* Test Item Value Reference Range Interpretation Comments Mean Corpuscular Hemoglobin Concent (test code = 786-4) 32.7 31-35 [facility] CampusRed Cell Distribution Tgvlj4752-87-11 15:44:00* Test Item Value Reference Range Interpretation Comments Red Cell Distribution Width (test code = 43406-9) 14.5 11.7 -14.4 H [facility] CampusPlatelet Xybyq8114-71-38 15:44:00* Test Item Value Reference Range Interpretation Comments Platelet Count (test code = 777-3) 234 140-360 [facility] CampusNeutrophils (%) (Auto)2019-03-15 15:44:00 * Test Item Value Reference Range Interpretation Comments Neutrophils (%) (Auto) (test code = 85880-7) 49.9 38.7-80.0 [facility] CampusLymphocytes (%) (Auto)2019-03-15 15:44:00 * Test Item Value Reference Range Interpretation Comments Lymphocytes (%) (Auto) (test code = 736-9) 41.0 18.0-39.1 H [facility] CampusMonocytes (%) (Auto)2019-03-15 15:44:00* Test Item Value Reference Range Interpretation Comments Monocytes (%) (Auto) (test code = 5905-5) 6.5 4.4-11.3 [facility] CampusEosinophils (%) (Auto)2019-03-15 15:44:00 * Test Item Value Reference Range Interpretation Comments Eosinophils (%) (Auto) (test code = 713-8) 2.2 0.0-6.0 [facility] CampusBasophils (%) (Auto)2019-03-15 15:44:00* Test Item Value Reference Range Interpretation Comments Basophils (%) (Auto) (test code = 706-2) 0.2 0.0-1.0 [facility] CampusIM GRANULOCYTES %2019-03-15 15:44:00* Test Item Value Reference Range Interpretation Comments IM GRANULOCYTES % (test code = IM GRANULOCYTES %) 0.2 0.0- 1.0 [facility] CampusNeutrophils # (Auto)2019-03-15 15:44:00* Test Item Value Reference Range Interpretation Comments Neutrophils # (Auto) (test code = 751-8) 2.7 2.1-6.9 [facility] CampusLymphocytes # (Auto)2019-03-15 15:44:00* Test Item Value Reference Range Interpretation Comments Lymphocytes # (Auto) (test code = 53648-5) 2.2 1.0-3.2 [facility] CampusMonocytes # (Auto)2019-03-15 15:44:00* Test Item Value Reference Range Interpretation Comments Monocytes # (Auto) (test code = 742-7) 0.4 0.2-0.8 [facility] CampusEosinophils # (Auto)2019-03-15 15:44:00* Test Item Value Reference Range Interpretation Comments Eosinophils # (Auto) (test code = 711-2) 0.1 0.0-0.4 [facility] CampusBasophils # (Auto)2019-03-15 15:44:00* Test Item Value Reference Range Interpretation Comments Basophils # (Auto) (test code = 704-7) 0.0 0.0-0.1 [facility] CampusAbsolute Immature Granulocyte (auto 2019-03-15 15:44:00* Test Item Value Reference Range Interpretation Comments Absolute Immature Granulocyte (auto (evelia t code = Absolute Immature Granulocyte (auto) 0.01 0-0.1 [facility] CampusUS ABDOMEN ALPAIGKB8887-05-29 15:14:00 [place] [address] Patient Name: IVETTE DYSON MR #: [id number] : 1970 Age/Sex: 48/F Req #: [id number] [facility] Physician: Ordered by: MARCELLA KAUFFMAN INTERNATIONAL NURSE Report #: [id number] Location: ER Room/Bed: Procedure: [id number] US/US ABDOMEN COMPLETE Exam Date: 03/15/19 Exam Time : 1436 REPORT STATUS: Signed EXA M: US ABDOMEN COMPLETE DATE: 03/15/2019 2:06 PM INDICATION: Abdominal pain COMPARISON: CT abdomen/pelvis from 08/06/2018 FINDINGS: The l iver is normal in size measuring 15.8 cm in length. The hepatic parenchyma is diffusely increased in echogenicity compatible with fatty infiltration. No foc al hepatic abnormality is identified. The main portal vein is patent with ante grade flow and diameter of 0.9 cm, within normal limits. The gallbladder is unremarkable. There is no evidence for cholelithiasis, gallbladder wall thick ening, pericholecystic fluid. There is no intra or extrahepatic biliary ductal dilatation. The common bile duct measures 4 mm. Sonographic Catalan's sign is negative. The spleen is normal in size measuring 9.4 cm in length and demon strates an unremarkable sonographic appearance. The kidneys are normal in size measuring 10.6 cm in length on the right and 11.5 cm in length on the le ft. Cortical thickness and echogenicity are within normal limits. There is no evidence for solid renal mass, hydronephrosis, or shadowing calculi. Visu alized portions the IVC and aorta are within normal limits. There is no asc ites visualized. IMPRESSION: Sonographic findings suggestive of hep atic steatosis. Otherwise, unremarkable abdominal ultrasound examination. Signed by: Dr. Simeon Malin MD on 03/15/2019 3:17 PM Dictated By: SIMEON MALIN MD 16 Transcr ibed By: KAREN on 03/15/191516 COPY TO: MARCELLA KAUFFMAN NP Bedside Orhvbet7490-56-66 16:08:00* Test Item Value Reference Range Interpretation Comments Bedside Glucose (test code = 99891-2) 91 70-120 Meter ID: [id number] [facility] [id number] 20:54:00* Test Item Value Reference Range Interpretation Comments Urine WBC (test code = 5821-4) NONE 0-5 [facility] CampusUrine FGU5665-44-60 20:54:00* Test Item Value Reference Range Interpretation Comments Urine RBC (test code = 81699-3) 0-5 0-5 [facility] CampusUrine Ywtrzhtk3761-98-99 20:54:00* Test Item Value Reference Range Interpretation Comments Urine Bacteria (test code = 26821-6) NONE NONE [facility] CampusUrine Epithelial Fwyes7947-19-46 20:54:00 * Test Item Value Reference Range Interpretation Comments Urine Epithelial Cells (test code = 90193-1) FEW NONE [facility] CampusUrine RZV8923-88-60 20:54:00* Test Item Value Reference Range Interpretation Comments Urine WBC (test code = 5821-4) NONE 0-5 [facility] CampusUrine WMF3730-10-94 20:54:00* Test Item Value Reference Range Interpretation Comments Urine RBC (test code = 55233-0) 0-5 0-5 [facility] CampusUrine Eouujffr7987-14-53 20:54:00* Test Item Value Reference Range Interpretation Comments Urine Bacteria (test code = 90681-4) NONE NONE [facility] CampusUrine Epithelial Zdleg4265-67-76 20:54:00 * Test Item Value Reference Range Interpretation Comments Urine Epithelial Cells (test code = 06829-0) FEW NONE [facility] CampusCT ABDOMEN/PELVIS Q0483-14-03 20:46:00 [facility] [address] [place] [address] Patient Name: IVETTE DYSON MR #: [id number] : 1970 Age/Sex: 48/F Req #: [id number] [facility] Physician: Ordered by: EDISON CANAS NP Report #: [id number] Location: ER Room/Bed: Procedure: [id number] CT /CT ABDOMEN/PELVIS W Exam Date: 08/06/18 Exam Time: 1944 REPORT STATUS: Signed EXAM: CT Abdomen and Pelvis WITH contrast INDICATION: ABD BLOATING AND P AIN [id number] COMPARISON: Gallbladder ultrasound 05/15/2017 TECHNIQUE: Abdomen and pelvis were scanned utilizing a multidetector helical scanner from the lung base to the pubic symphysis after administration of IV c ontrast. Coronal and sagittal reformations were obtained. Routine protocol was performed. Scan was performed when during portal venous phase. IV CONTRAST: 100 mL of Isovue 370 ORAL CONTRAST: None RADIATION DOSE: Total DLP: 416 mGy*cm Estimated effective dose: ( DLP x 0.015 x size factor) mSv COMPLICATIONS: None FINDINGS: LINES and TUBES: None. LOWER THORAX: Unremarkable HEPATOBILIARY: No focal hepatic lesions. No biliary ductal dilation. GALLBLADDER: No radio-opaque stones or sludge. No wall thickening. SPLEEN: No splenomega ly. PANCREAS: No focal masses or ductal dilatation. ADRENALS: No ad renal nodules KIDNEYS/URETERS: Kidneys enhance symmetrically. No hydro nephrosis. No cystic or solid mass lesions. No stones. GI TRACT: Mildly prominent fluid-filled loops of small bowel in the left upper quadrant on seri es 2, image 21 with associated minimal wall thickening. Otherwise, no bowel di latation or obstruction. Appendix is normal. PELVIC ORGANS/BLADDER: U nremarkable. LYMPH NODES: No lymphadenopathy. VESSELS: Unremarkable. PERITONEUM / RETROPERITONEUM: No free air or fluid. BONES: Unremarkable. SOFT TISSUES: Unremarkable. IMPRESSION: Prominent flu id-filled loops of the small bowel in the left upper quadrant with associated mild wall thickening suggestive of nonspecific enteritis. Signed by: Dr. Yaneli Adames M.D. on 08/06/2018 8:49 PM Dictated By: ZULMA ADAMES MD 48 COPY TO: EDISON CANAS NP Urine Oueti9113-45-61 20:35:00* Test Item Value Reference Range Interpretation Comments Urine Color (test code = 5778-6) YELLOW YELLOW [facility] Ymjexpp4767-56-87 20:35:00* Test Item Value Reference Range Interpretation Comments Urine Clarity (test code = 34448-0) CLEAR CLEAR [facility] CampusU[facility] Specific Vabcfdv8924-17-95 20:35:00 * Test Item Value Reference Range Interpretation Comments Urine Specific [place] (test code = 5811-5) 1.010 1.010-1.02 5 [facility] CampusU[facility] [id number] 20:35:00* Test Item Value Reference Range Interpretation Comments Urine pH (test code = 39261-9) 7.5 5-7 [facility] Leukocyte Arafwqfz6972-21-26 20:35:00* Test Item Value Reference Range Interpretation Comments Urine Leukocyte Esterase (test code = 16964-0) NEGATIVE NEGATIV E [facility] CampusU[facility] Dfeugga0616-13-70 20:35:00* Test Item Value Reference Range Interpretation Comments Urine Nitrite (test code = 54407-6) NEGATIVE NEGATIVE [facility] Campus[facility] Toupkqu4471-26-69 20:35:00* Test Item Value Reference Range Interpretation Comments Urine Protein (test code = 19689-1) NEGATIVE NEGATIVE [facility] CampusU[facility] Glucose (UA)2018-08-06 20:35:00* Test Item Value Reference Range Interpretation Comments Urine Glucose (UA) (test code = 40242-2) NEGATIVE NEGATIVE [facility] CampusUrine Surfaic5498-35-99 20:35:00* Test Item Value Reference Range Interpretation Comments Urine Ketones (test code = 28460-5) NEGATIVE NEGATIVE [facility] Campus[facility] Xldrudhcflwy3551-70-29 20:35:00* Test Item Value Reference Range Interpretation Comments Urine Urobilinogen (test code = 12367-6) 0.2 0.2-1 [facility] Campus[facility] Gkiozhhjh2045-86-52 20:35:00* Test Item Value Reference Range Interpretation Comments Urine Bilirubin (test code = 1977-8) NEGATIVE NEGATIVE [facility] Campus[facility] Fqydd4186-87-44 20:35:00* Test Item Value Reference Range Interpretation Comments Urine Blood (test code = 89316-8) MODERATE NEGATIVE [facility] Ikqgf0526-19-06 20:35:00* Test Item Value Reference Range Interpretation Comments Urine Color (test code = 5778-6) YELLOW YELLOW [facility] Hjkpjpp4077-27-59 20:35:00* Test Item Value Reference Range Interpretation Comments Urine Clarity (test code = 89524-9) CLEAR CLEAR [facility] CampusU[facility] Specific Jbikzpm6742-33-07 20:35:00 * Test Item Value Reference Range Interpretation Comments Urine Specific [place] (test code = 5811-5) 1.010 1.010-1.02 5 [facility] CampusU[facility] mK2884-16-48 20:35:00* Test Item Value Reference Range Interpretation Comments Urine pH (test code = 33081-4) 7.5 5-7 [facility] Leukocyte Milractp1377-42-44 20:35:00* Test Item Value Reference Range Interpretation Comments Urine Leukocyte Esterase (test code = 40007-3) NEGATIVE NEGATIV E [facility] CampusU[facility] Mfhnhbn3968-45-13 20:35:00* Test Item Value Reference Range Interpretation Comments Urine Nitrite (test code = 93806-3) NEGATIVE NEGATIVE [facility] CampusU[facility] Stzbjly1533-79-10 20:35:00* Test Item Value Reference Range Interpretation Comments Urine Protein (test code = 93447-9) NEGATIVE NEGATIVE [facility] Glucose (UA)2018-08-06 20:35:00* Test Item Value Reference Range Interpretation Comments Urine Glucose (UA) (test code = 54116-6) NEGATIVE NEGATIVE [facility] CampusU[facility] Hdawxnh2340-53-45 20:35:00* Test Item Value Reference Range Interpretation Comments Urine Ketones (test code = 28180-0) NEGATIVE NEGATIVE [facility] Fjxibxvomkdo0705-69-73 20:35:00* Test Item Value Reference Range Interpretation Comments Urine Urobilinogen (test code = 95986-3) 0.2 0.2-1 [facility] CampusU[facility] Nsiigziuj7722-75-08 20:35:00* Test Item Value Reference Range Interpretation Comments Urine Bilirubin (test code = 1977-8) NEGATIVE NEGATIVE [facility] Campus[facility] Zfqhr9086-73-70 20:35:00* Test Item Value Reference Range Interpretation Comments Urine Blood (test code = 58278-9) MODERATE NEGATIVE [facility] Frnjx3408-68-51 19:11:00* Test Item Value Reference Range Interpretation Comments Sodium Level (test code = 2951-2) 136 136-145 [facility] CampusPotassium Qrjoy0001-92-52 19:11:00* Test Item Value Reference Range Interpretation Comments Potassium Level (test code = 2823-3) 3.7 3.5-5.1 [facility] CampusChloride Wiuwo3520-42-89 19:11:00* Test Item Value Reference Range Interpretation Comments Chloride Level (test code = 2075-0) 102 98-107 [facility] CampusCarbon Dioxide Qwpsl4998-52-91 19:11:00* Test Item Value Reference Range Interpretation Comments Carbon Dioxide Level (test code = 2028-9) 27 22-29 [facility] CampusAnion Gdq0623-83-67 19:11:00* Test Item Value Reference Range Interpretation Comments Anion Gap (test code = 39438-6) 10.7 8-16 [facility] CampusBlood Urea Hxvyhsqm6632-70-75 19:11:00* Test Item Value Reference Range Interpretation Comments Blood Urea Nitrogen (test code = 3094-0) 7 7-26 [facility] CampusCreatinine2019-05-31 19:11:00* Test Item Value Reference Range Interpretation Comments Creatinine (test code = 2160-0) 0.77 0.57-1.11 [facility] CampusBUN/Creatinine Eatyx6969-55-84 19:11:00* Test Item Value Reference Range Interpretation Comments BUN/Creatinine Ratio (test code = 3097-3) 9 6-25 [facility] CampusEstimat Glomerular Filtration Rate 2018-08-06 19:11:00* Test Item Value Reference Range Interpretation Comments Estimat Glomerular Filtration Rate (test code = 853614716) > 60 >60 Ranges were taken from the National Kidney Disease Education Program and the [facility] Kidney Foundation literature.Reference ranges:60 or greater: Kpacwh97-14 ( for 3 consecutive months): Chronic kidney disease 15 or less: Kidney failureWise Health System East CampusGlucose Jrxvc7766-13-44 19:11:00* Test Item Value Reference Range Interpretation Comments Glucose Level (test code = BRZ2428) 193 74-118 H [facility] CampusCalcium Tkmbx8347-20-50 19:11:00* Test Item Value Reference Range Interpretation Comments Calcium Level (test code = 06826-2) 8.8 8.4-10.2 [facility] CampusTotal Veepgdbvh9503-00-48 19:11:00* Test Item Value Reference Range Interpretation Comments Total Bilirubin (test code = 1975-2) 0.3 0.2-1.2 [facility] CampusAspartate Amino Transf (AST/SGOT) 2018-08-06 19:11:00* Test Item Value Reference Range Interpretation Comments Aspartate Amino Transf (AST/SGOT) (test code = Aspartate Amino Transf (AST/SGOT)) 31 5-34 [facility] CampusAlanine Aminotransferase (ALT/SGPT) 2018-08-06 19:11:00* Test Item Value Reference Range Interpretation Comments Alanine Aminotransferase (ALT/SGPT) (test code = 1742-6) 43 0-55 [facility] CampusTotal Ypqrcpq2094-37-85 19:11:00* Test Item Value Reference Range Interpretation Comments Total Protein (test code = 2885-2) 6.8 6.5-8.1 [facility] CampusAlbumin2019-05-31 19:11:00* Test Item Value Reference Range Interpretation Comments Albumin (test code = 1751-7) 3.4 3.5-5.0 L [facility] CampusGlobulin2019-05-31 19:11:00* Test Item Value Reference Range Interpretation Comments Globulin (test code = 77837-1) 3.4 2.3-3.5 [facility] CampusAlbumin/Globulin Njgnd0125-77-04 19:11:00 * Test Item Value Reference Range Interpretation Comments Albumin/Globulin Ratio (test code = 1759-0) 1.0 0.8-2.0 [facility] CampusAlkaline Onyspbrawod8287-77-32 19:11:00* Test Item Value Reference Range Interpretation Comments Alkaline Phosphatase (test code = 6768-6) 89 40-150 [facility] CampusWhite Blood Qqyzy1631-39-06 18:40:00* Test Item Value Reference Range Interpretation Comments White Blood Count (test code = 6690-2) 7.82 4.8-10.8 [facility] CampusRed Blood Bcghw8873-76-09 18:40:00* Test Item Value Reference Range Interpretation Comments Red Blood Count (test code = 789-8) 4.54 3.6-5.1 [facility] CampusHemoglobin2019-05-31 18:40:00* Test Item Value Reference Range Interpretation Comments Hemoglobin (test code = 08349-4) 13.0 12.0-16.0 [facility] CampusHematocrit2019-05-31 18:40:00* Test Item Value Reference Range Interpretation Comments Hematocrit (test code = 4544-3) 38.8 34.2-44.1 [facility] CampusMean Corpuscular Fardty0422-90-99 18:40:00* Test Item Value Reference Range Interpretation Comments Mean Corpuscular Volume (test code = 787-2) 85.5 81-99 [facility] CampusMean Corpuscular Lqejfuuwej9898-73-45 18:40:00* Test Item Value Reference Range Interpretation Comments Mean Corpuscular Hemoglobin (test code = 785-6) 28.6 28-32 [facility] CampusMean Corpuscular Hemoglobin Concent 2018-08-06 18:40:00* Test Item Value Reference Range Interpretation Comments Mean Corpuscular Hemoglobin Concent (test code = 786-4) 33.5 31-35 [facility] CampusRed Cell Distribution Odocm1254-28-61 18:40:00* Test Item Value Reference Range Interpretation Comments Red Cell Distribution Width (test code = 77397-8) 16.2 11.7 -14.4 H [facility] CampusPlatelet Mglgl9760-87-23 18:40:00* Test Item Value Reference Range Interpretation Comments Platelet Count (test code = 777-3) 284 140-360 [facility] CampusNeutrophils (%) (Auto)2018-08-06 18:40:00 * Test Item Value Reference Range Interpretation Comments Neutrophils (%) (Auto) (test code = 08463-4) 65.5 38.7-80.0 [facility] CampusLymphocytes (%) (Auto)2018-08-06 18:40:00 * Test Item Value Reference Range Interpretation Comments Lymphocytes (%) (Auto) (test code = 736-9) 25.6 18.0-39.1 [facility] CampusMonocytes (%) (Auto)2018-08-06 18:40:00* Test Item Value Reference Range Interpretation Comments Monocytes (%) (Auto) (test code = 5905-5) 6.6 4.4-11.3 [facility] CampusEosinophils (%) (Auto)2018-08-06 18:40:00 * Test Item Value Reference Range Interpretation Comments Eosinophils (%) (Auto) (test code = 713-8) 1.3 0.0-6.0 [facility] CampusBasophils (%) (Auto)2018-08-06 18:40:00* Test Item Value Reference Range Interpretation Comments Basophils (%) (Auto) (test code = 706-2) 0.5 0.0-1.0 [facility] CampusIM GRANULOCYTES %2018-08-06 18:40:00* Test Item Value Reference Range Interpretation Comments IM GRANULOCYTES % (test code = IM GRANULOCYTES %) 0.5 0.0- 1.0 [facility] CampusNeutrophils # (Auto)2018-08-06 18:40:00* Test Item Value Reference Range Interpretation Comments Neutrophils # (Auto) (test code = 751-8) 5.1 2.1-6.9 [facility] CampusLymphocytes # (Auto)2018-08-06 18:40:00* Test Item Value Reference Range Interpretation Comments Lymphocytes # (Auto) (test code = 11965-7) 2.0 1.0-3.2 [facility] CampusMonocytes # (Auto)2018-08-06 18:40:00* Test Item Value Reference Range Interpretation Comments Monocytes # (Auto) (test code = 742-7) 0.5 0.2-0.8 [facility] CampusEosinophils # (Auto)2018-08-06 18:40:00* Test Item Value Reference Range Interpretation Comments Eosinophils # (Auto) (test code = 711-2) 0.1 0.0-0.4 [facility] CampusBasophils # (Auto)2018-08-06 18:40:00* Test Item Value Reference Range Interpretation Comments Basophils # (Auto) (test code = 704-7) 0.0 0.0-0.1 [facility] CampusAbsolute Immature Granulocyte (auto 2018-08-06 18:40:00* Test Item Value Reference Range Interpretation Comments Absolute Immature Granulocyte (auto (evelia t code = Absolute Immature Granulocyte (auto) 0.04 0-0.1 [facility] CampusCHEST SINGLE (NOT PORTABLE)2018-06-25 18:21:00 [facility] [address] [place] [address] Patient Name: IVETTE DYSON MR #: [id number] : 1970 Age/Sex: 48/F Req #: [id number] Adm Physician: Ordered by: SAMIR EMMANUEL MD Report #: [id number] Location: ER Room/Bed: Procedure: [id number] DX/CHEST SINGLE (NOT PORTABLE) Exam Date: 06/25/18 E xam Time: 175 REPORT STATUS: Sonali d Examination: Single AP view of the chest. COMPARISON: None. INDIC ATION: Chest pain, shortness of breath DISCUSSION: Lines/tubes: None. Lungs: No pneumonia or pulmonary edema. Pleura: No pleural eff usion or pneumothorax. Heart and mediastinum: The heart and the mediastinu m are unremarkable. Bones and soft tissues: No acute bony abnormalities. IMPRESSION: 1. No acute cardiopulmonary abnormalities. Signed by: Dr. Arabella Chairez M.D. on 06/25/2018 6:22 PM Dictated By: ARABELLA CHAIREZ MD 21 [address] scribed By: KAREN on 06/25/181821 COPY TO: SAMIR EMMANUEL MD Bedside Elzdskr6364-85-76 11:23:00* Test Item Value Reference Range Interpretation Comments Bedside Glucose (test code = 91887-6) 102 70-120 Meter ID: [id number] [facility] 2017-12-02 11:23:00* Test Item Value Reference Range Interpretation Comments Bedside Glucose (test code = 68267-3) 102 70-120 Meter ID: [id number] [facility] CenterUrine Test 2017-12-02 11:12:00* Test Item Value Reference Range Interpretation Comments Urine Test (test code = 2106-3) NEGATIVE NEGATIVE [facility] CampusUrine Liyq7850-71-95 11:12:00* Test Item Value Reference Range Interpretation Comments Urine Test (test code = 2106-3) NEGATIVE NEGATIVE [facility] CampusUrine VZQ6340-67-38 22:05:00* Test Item Value Reference Range Interpretation Comments Urine WBC (test code = 5821-4) NONE 0-5 [facility] CampusUrine WFI8627-58-30 22:05:00* Test Item Value Reference Range Interpretation Comments Urine RBC (test code = 75887-8) NONE 0-5 [facility] CampusUrine Japrtdrv7496-17-61 22:05:00* Test Item Value Reference Range Interpretation Comments Urine Bacteria (test code = 33773-5) NONE NONE [facility] CampusUrine Epithelial Wecly9960-79-27 22:05:00 * Test Item Value Reference Range Interpretation Comments Urine Epithelial Cells (test code = 72814-7) NONE NONE [facility] Tdwnq8167-28-95 22:04:00* Test Item Value Reference Range Interpretation Comments Sodium Level (test code = 2951-2) 139 136-145 [facility] CampusPotassium Xshma0040-39-84 22:04:00* Test Item Value Reference Range Interpretation Comments Potassium Level (test code = 2823-3) 4.0 3.5-5.1 [facility] CampusChloride Mdiwm7408-05-98 22:04:00* Test Item Value Reference Range Interpretation Comments Chloride Level (test code = 2075-0) 104 98-107 [facility] CampusCarbon Dioxide Rdrdz0807-81-97 22:04:00* Test Item Value Reference Range Interpretation Comments Carbon Dioxide Level (test code = 2028-9) 26 22-29 [facility] CampusAnion Qyr4488-85-11 22:04:00* Test Item Value Reference Range Interpretation Comments Anion Gap (test code = 54002-9) 13.0 8-16 [facility] CampusBlood Urea Kxioyphg9862-33-12 22:04:00* Test Item Value Reference Range Interpretation Comments Blood Urea Nitrogen (test code = 3094-0) 6 7-26 L [facility] CampusCreatinine2018-03-09 22:04:00* Test Item Value Reference Range Interpretation Comments Creatinine (test code = 2160-0) 0.73 0.57-1.11 [facility] CampusBUN/Creatinine Yvynx8736-62-37 22:04:00* Test Item Value Reference Range Interpretation Comments BUN/Creatinine Ratio (test code = 3097-3) 8 6-25 [facility] CampusEstimat Glomerular Filtration Rate 2017-05-15 22:04:00* Test Item Value Reference Range Interpretation Comments Estimat Glomerular Filtration Rate (test code = 89333-2) 60- >60 Ranges were taken from the National Kidney Disease Education Program and the [facility] Kidney Foundation literature.Reference ranges:60 or greater: Gpzddy82-41 ( for 3 consecutive months): Chronic kidney disease 15 or less: Kidney failureWise Health System East CampusGlucose Fxkko7473-82-19 22:04:00* Test Item Value Reference Range Interpretation Comments Glucose Level (test code = OYZ7491) 101 74-118 [facility] CampusCalcium Qoxzk6769-08-02 22:04:00* Test Item Value Reference Range Interpretation Comments Calcium Level (test code = 49600-8) 8.8 8.4-10.2 [facility] CampusTotal Whyxbxazs5178-68-62 22:04:00* Test Item Value Reference Range Interpretation Comments Total Bilirubin (test code = 1975-2) -0.3 0.2-1.2 [facility] CampusAspartate Amino Transf (AST/SGOT) 2017-05-15 22:04:00* Test Item Value Reference Range Interpretation Comments Aspartate Amino Transf (AST/SGOT) (test code = Aspartate Amino Transf (AST/SGOT)) 27 5-34 [facility] CampusAlanine Aminotransferase (ALT/SGPT) 2017-05-15 22:04:00* Test Item Value Reference Range Interpretation Comments Alanine Aminotransferase (ALT/SGPT) (test code = 1742-6) 31 0-55 [facility] CampusTotal Jftyycm0573-09-04 22:04:00* Test Item Value Reference Range Interpretation Comments Total Protein (test code = 2885-2) 8.0 6.5-8.1 [facility] CampusAlbumin2018-03-09 22:04:00* Test Item Value Reference Range Interpretation Comments Albumin (test code = 1751-7) 3.9 3.5-5.0 [facility] CampusGlobulin2018-03-09 22:04:00* Test Item Value Reference Range Interpretation Comments Globulin (test code = 69225-0) 4.1 2.3-3.5 H [facility] CampusAlbumin/Globulin Fsoiw3659-62-24 22:04:00 * Test Item Value Reference Range Interpretation Comments Albumin/Globulin Ratio (test code = 1759-0) 1.0 0.8-2.0 [facility] CampusAlkaline Utniytiyaxi4514-79-94 22:04:00* Test Item Value Reference Range Interpretation Comments Alkaline Phosphatase (test code = 6768-6) 88 40-150 [facility] CampusAmylase Fbrpx1049-63-90 22:04:00* Test Item Value Reference Range Interpretation Comments Amylase Level (test code = 1798-8) 61 25-125 [facility] CampusLipase2018-03-09 22:04:00* Test Item Value Reference Range Interpretation Comments Lipase (test code = 3040-3) 28 8-78 [facility] CampusUrine Qnuhg3926-73-68 21:50:00* Test Item Value Reference Range Interpretation Comments Urine Color (test code = 5778-6) YELLOW YELLOW [facility] CampusUrine Efaegvo1586-86-79 21:50:00* Test Item Value Reference Range Interpretation Comments Urine Clarity (test code = 37781-0) CLEAR CLEAR [facility] CampusUrine Specific Trikifg9174-65-90 21:50:00 * Test Item Value Reference Range Interpretation Comments Urine Specific [place] (test code = 5811-5) 1.010 1.010-1.02 5 [facility] CampusUrine aF1030-10-62 21:50:00* Test Item Value Reference Range Interpretation Comments Urine pH (test code = 39256-7) 6 5-7 [facility] CampusUrine Leukocyte Uuojysox8680-32-55 21:50:00* Test Item Value Reference Range Interpretation Comments Urine Leukocyte Esterase (test code = 5799-2) NEGATIVE NEGATIVE [facility] CampusUrine Nkmoudg8253-71-73 21:50:00* Test Item Value Reference Range Interpretation Comments Urine Nitrite (test code = 04405-4) NEGATIVE NEGATIVE [facility] CampusUrine Mrohaeh0065-37-65 21:50:00* Test Item Value Reference Range Interpretation Comments Urine Protein (test code = 5804-0) NEGATIVE NEGATIVE [facility] CampusUrine Glucose (UA)2017-05-15 21:50:00* Test Item Value Reference Range Interpretation Comments Urine Glucose (UA) (test code = 2349-9) NEGATIVE NEGATIVE [facility] CampusUrine Awixtte0426-63-16 21:50:00* Test Item Value Reference Range Interpretation Comments Urine Ketones (test code = 00319-5) NEGATIVE NEGATIVE [facility] CampusUrine Vwmyaprhwioe5737-80-68 21:50:00* Test Item Value Reference Range Interpretation Comments Urine Urobilinogen (test code = 82529-2) 0.2 0.2-1 [facility] CampusUrine Yqnvuvfzm2626-19-22 21:50:00* Test Item Value Reference Range Interpretation Comments Urine Bilirubin (test code = 1978-6) NEGATIVE NEGATIVE [facility] CampusUrine Vkajs0272-00-35 21:50:00* Test Item Value Reference Range Interpretation Comments Urine Blood (test code = 57922-4) NEGATIVE NEGATIVE [facility] CampusWhite Blood Txulj4825-25-23 21:48:00* Test Item Value Reference Range Interpretation Comments White Blood Count (test code = 6690-2) 8.57 4.8-10.8 [facility] CampusRed Blood Sckha0169-18-32 21:48:00* Test Item Value Reference Range Interpretation Comments Red Blood Count (test code = 789-8) 4.42 3.6-5.1 [facility] CampusHemoglobin2018-03-09 21:48:00* Test Item Value Reference Range Interpretation Comments Hemoglobin (test code = 72334-4) 12.6 12.0-16.0 [facility] CampusHematocrit2018-03-09 21:48:00* Test Item Value Reference Range Interpretation Comments Hematocrit (test code = 4544-3) 38.0 34.2-44.1 [facility] CampusMean Corpuscular Jzrakx5323-24-92 21:48:00* Test Item Value Reference Range Interpretation Comments Mean Corpuscular Volume (test code = 787-2) 86.0 81-99 [facility] CampusMean Corpuscular Wtxqnmkill6303-11-34 21:48:00* Test Item Value Reference Range Interpretation Comments Mean Corpuscular Hemoglobin (test code = 785-6) 28.5 28-32 [facility] CampusMean Corpuscular Hemoglobin Concent 2017-05-15 21:48:00* Test Item Value Reference Range Interpretation Comments Mean Corpuscular Hemoglobin Concent (test code = 786-4) 33.2 31-35 [facility] CampusRed Cell Distribution Gcbwg2118-03-39 21:48:00* Test Item Value Reference Range Interpretation Comments Red Cell Distribution Width (test code = 59447-2) 13.8 11.7 -14.4 [facility] CampusPlatelet Nfyxv2425-01-25 21:48:00* Test Item Value Reference Range Interpretation Comments Platelet Count (test code = 777-3) 283 140-360 [facility] CampusNeutrophils (%) (Auto)2017-05-15 21:48:00 * Test Item Value Reference Range Interpretation Comments Neutrophils (%) (Auto) (test code = 71071-0) 55.6 38.7-80.0 [facility] CampusLymphocytes (%) (Auto)2017-05-15 21:48:00 * Test Item Value Reference Range Interpretation Comments Lymphocytes (%) (Auto) (test code = 736-9) 34.0 18.0-39.1 [facility] CampusMonocytes (%) (Auto)2017-05-15 21:48:00* Test Item Value Reference Range Interpretation Comments Monocytes (%) (Auto) (test code = 5905-5) 8.3 4.4-11.3 [facility] CampusEosinophils (%) (Auto)2017-05-15 21:48:00 * Test Item Value Reference Range Interpretation Comments Eosinophils (%) (Auto) (test code = 713-8) 1.2 0.0-6.0 [facility] CampusBasophils (%) (Auto)2017-05-15 21:48:00* Test Item Value Reference Range Interpretation Comments Basophils (%) (Auto) (test code = 706-2) 0.5 0.0-1.0 [facility] CampusIM GRANULOCYTES %2017-05-15 21:48:00* Test Item Value Reference Range Interpretation Comments IM GRANULOCYTES % (test code = IM GRANULOCYTES %) 0.4 0.0- 1.0 [facility] CampusNeutrophils # (Auto)2017-05-15 21:48:00* Test Item Value Reference Range Interpretation Comments Neutrophils # (Auto) (test code = 751-8) 4.8 2.1-6.9 [facility] CampusLymphocytes # (Auto)2017-05-15 21:48:00* Test Item Value Reference Range Interpretation Comments Lymphocytes # (Auto) (test code = 93640-4) 2.9 1.0-3.2 [facility] CampusMonocytes # (Auto)2017-05-15 21:48:00* Test Item Value Reference Range Interpretation Comments Monocytes # (Auto) (test code = 742-7) 0.7 0.2-0.8 [facility] CampusEosinophils # (Auto)2017-05-15 21:48:00* Test Item Value Reference Range Interpretation Comments Eosinophils # (Auto) (test code = 711-2) 0.1 0.0-0.4 [facility] CampusBasophils # (Auto)2017-05-15 21:48:00* Test Item Value Reference Range Interpretation Comments Basophils # (Auto) (test code = 704-7) 0.0 0.0-0.1 [facility] CampusAbsolute Immature Granulocyte (auto 2017-05-15 21:48:00* Test Item Value Reference Range Interpretation Comments Absolute Immature Granulocyte (auto (evelia t code = Absolute Immature Granulocyte (auto) 0.03 0-0.1 [facility] CampusHEPTOBILIARY W PHARM [facility] [address] [place] [address] Patient Name: IVETTE DYSON MR #: [id number] : 1970 Age/Sex: 46/F Req #: [id number] Adm Physician: Ordered by: NATE SPRINGER Report #: [id number] Location: [place] Room/Bed: Procedure: [id number] NM/HEPTOBILIARY W PHARM Exam Date: 06/15/17 Exam Time: 0825 REPORT STATUS: S igned Hepatobiliary Scan with Gallbladder Ejection Fraction Clinical inf ormation: 46 F with RUQ abdominal pain, worsening over the past 1 month T echnique: Following intravenous administration of 7.0 millicuries of Tc-99m me brofenin, dynamic images of the abdomen in the anterior projection were obtain ed through 25 minutes. Sincalide (CCK analog) 1.7 micrograms was administered intravenously over 30 minutes with additional imaging for determination of ga llbladder ejection fraction. Discussion: Perfusion of the liver is normal. Extraction of tracer by the liver parenchyma is normal. Tracer appears promp tly within the biliary tract. The gallbladder begins to fill by [address] injection of tracer and fills adequately. Tracer is seen in the small sridhar l by 19 minutes. The gallbladder ejection fraction with sincalide is 28% (nor mal greater than 40%). Impression: 1. Filling of the gallbladder exc ludes acute cystic duct obstruction/acute cholecystitis. 2. 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 Signed by: Dr. Dilip Ramirez M.D. on 06/15/2017 3:45 PM Dictated By: DILIP RAMIREZ MD 154 Transcribed By: KAREN on 06/15/17 154 COPY TO: NATE SPRINGER GALLBLADDER [place] [address] Patient Name: IVETTE GONZALEZ MR #: [id number] : 1970 Age/Sex: 46/F Req #: [id number] Adm Physician: Ordered by: DOT TRACY MD Report #: [id number] Location: ER Room/Bed: Procedure: [id number] US/US GALLBLA DDER Exam Date: 05/15/17 Exam Time: 2242 REPOR T STATUS: Signed EXAM: Right Upper Quadrant Ultrasound INDICATION: R ight upper quadrant pain COMPARISON: None. TECHNIQUE: Transverse and longit udinal images of the right upper abdomen were obtained. FINDINGS: Liver: Size: 16.8 cm in the right midclavicular line, large Appearance: Inc reased echogenicity, smooth contour Mass: No focal masses Gallbladder: Stones/Sludge: None Wall: 0.3 cm Appearance: No wall thickening, pericholecy stic fluid or hydrops. Sonographic Catalan's Sign: Negative Bile Ducts: Intrahepatic Ducts: No dilatation Extrahepatic Ducts: Common bile duct measu res 0.3 cm, no dilatation Pancreas: Visualized portions of the pancreatic head, neck and proximal body are normal. Kidneys: Length: Right 10.3 cm Echogenicity: Normal Collecting System: No hydronephrosis Stone: None Cyst/Mass: None Vessels: Aorta: Visualized portions are normal Inferior Vena Cava: Visualized portions are normal Main Portal Vein: 1.0 cm, normal size with hepatopetal flow. Free Fluid: No ascites or pleu ral effusion IMPRESSION: Hepatomegaly and diffuse hepatic steatosis. Signed by: Dr. Dane Aguillon M.D. on 05/15/2017 11:13 PM Dictated By: DANE PERSON MD [id number] Transcribed By: KAREN on 05/15/17 2973 COPY TO: RAUL TRACY MD
== END 2019-11-11 09:50 | disposition home or self-care (01) ==
LOC: ER 09:30
DX: M62.838 Other muscle spasm (principal); E11.9 Type 2 diabetes mellitus without complications; G40.909 Epilepsy, unspecified, not intractable, without status epilepticus; G47.419 Narcolepsy without cataplexy
CPT/HCPCS: 99283

== ENCOUNTER 2020-01-19 17:15 | Emergency (ER) | payer BC ==
[~2020-01-19] VITALS: Ht 170.2 cm; Wt 72.6 kg
--- NOTE | 2020-01-19 17:33 | Emergency Department Note ---
History of Present Illnes History of Present Illness Chief Complaint: COVID PUI History of Present Illness This is a 49 year old female Chief Complaint Comment PATIENT IN FROM HOME WITH COMPLAINTS OF SHORTNESS OF BREATH, GENERAL MALAISE, AND ACHING X 1 WEEK; STATES THAT SHE AND HER WERE DIAGNOSED WITH COVID A WEEK AGO. Historian: Patient Arrival Mode: Car [facility] Diagnostics Teacher Required: No Onset (how long ago): week(s) (1) Location: Lungs Quality: SoB Radiation: Reports non-radiation Severity: moderate Onset quality: gradual Duration (how long): week(s) (1) Timing of current episode: constant Progression: worsening Chronicity: new Context: Reports recent illness (COVID); Denies recent surgery Relieving factors: none Exacerbating factors: none Associated symptoms: Reports denies other symptoms Treatments prior to arrival: none Past Medical/Family History Physician Review I have reviewed the patient's past medical and family history. Any updates have been documented here. Past Medical History Recent Fever: Yes Clinical Suspicion of Infectio: Yes New/Unexplained Change in Ment: No Past Medical History: Diabetes, Seizure Disorder Other Medical History: NARCOLEPSY Past Surgical History: Other Surgery: C/S X3 Social History Physically hurt or threatened: No Other Last Tetanus: UTD Review of Systems Review of Systems Constitutional: Reports as per HPI EENTM: Reports no symptoms Cardiovascular: Reports no symptoms Respiratory: Reports as per HPI, Reports cough, Reports dyspnea Gastrointestinal: Reports no symptoms Genitourinary: Reports no symptoms Musculoskeletal: Reports no symptoms Integumentary: Reports no symptoms Neurological: Reports no symptoms Psychological: Reports no symptoms Endocrine: Reports no symptoms Hematological/Lymphatic: Reports no symptoms Physical Exam Related Data Allergies: Coded Allergies: No Known Allergies (Unverified , 01/19/20) Triage Vital Signs Vital Signs Date Time Temp Pulse Resp B/P (MAP) Pulse Ox O2 Delivery O2 Flow Rate FiO2 01/19/20 17:21 98.8 81 20 106/78 98 Room Air Vital signs reviewed: Yes Physical Exam CONSTITUTIONAL Constitutional: Present well-developed, Present well-nourished HENT HENT: Present normocephalic, Present atraumatic, Present oropharynx clear/moist, Present nose normal HENT L/R: Present left ext ear normal, Present right ext ear normal EYES Eyes: Reports PERRL, Reports conjunctivae normal NECK Neck: Present ROM normal PULMONARY Pulmonary: Present effort normal, Present breath sounds normal CARDIOVASCULAR Cardiovascular: Present regular rhythm, Present heart sounds normal, Present capillary refill normal, Present normal rate GASTROINTESTINAL Abdominal: Present soft, Present nontender, Present bowel sounds normal GENITOURINARY Genitourinary: Present exam deferred SKIN Skin: Present warm, Present dry MUSCULOSKELETAL Musculoskeletal: Present ROM normal NEUROLOGICAL Neurological: Present alert, Present oriented x 3, Present no gross motor or sensory deficits PSYCHOLOGICAL Psychological: Present mood/affect normal, Present judgement normal Assessment & Plan Medical Decision Making MDM 49 y.o COVID + w/ SoB. satting 98% on RA. No resp distress. Discussed expected disease time course and management with patient and appropriate for DC. Reassessment Reassessment time: 17:32 Reassessment Well appearing, NAD Assessment & Plan Final Impression: (1) COVID-19 Depart Disposition: HOME, SELF-CARE Last Vital Signs Date Time Temp Pulse Resp B/P (MAP) Pulse Ox O2 Delivery O2 Flow Rate FiO2 01/19/20 17:21 98.8 81 20 106/78 98 Room Air Home Meds Reported Medications Metformin Hcl (METFORMIN HCL) 500 Mg Tablet, 500 MG PO BID, #60 TAB 07/31/17 WINSTON MONSALVE MD Jan 19, 2020 17:33
--- OUTSIDE RECORDS SUMMARY | 2020-01-19 17:55 | XMS REPORT | Continuity of Care Document ---
Author Author [facility] t Organization [facility] Address [address] [place] [id number] Phone Unavailable Care Team Providers Care Anthropologist Physical Name Role Phone NATE SPRINGER PCP Froylan PEDERSON Attphys Unavailable Froylan ZUÑIGA Attphys Unavailable LIEN, Brian DAWSON Attphys Unavailable NATE SPRINGER Attphys Unavailable Yovanny TRACY Attphys Unavailable Payers Payer Name Policy Type Policy Number Effective Date Expiration Date Brian davis [facility] [id number] 2019 00:00:00 [facility] Problems Condition Name Condition Details Condition Category Status Onset Date Resolution Date Last Treatment Date Treating Clinician Comments Source Muscle spasm Problem Active [facility] Allergies, Adverse Reactions, Alerts This patient has no known allergies or adverse reactions. Social History Social Habit Start Date Stop Date Quantity Comments Source Sex Assigned At 1970 00:00:00 1970 00:00:00 Female [facility] Medications Ordered Medication Name Filled Medication Name Start Date Stop Da te Current Medication? Ordering Clinician Indication Dosage Frequency Signature (SIG) Comments Components Source Metformin Hcl Metformin Hcl Yes 500 Twice A Day [facility] Fluoxetine Hcl Fluoxetine Hcl 2017-11-24 00:00:00 No 20 Daily [facility] Vital Signs Vital Name Observation Time Observation Value Comments Source Weight 2019-11-11 09:11:00 176 [lb_av] [facility] BMI (Body Mass Index) 2019-11-11 09:11:00 29.3 kg/m2 [facility] Body Temperature 2019-03-15 18:38:00 98.8 [degF] [facility] Procedures Procedure Date / Time Performed Performing Clinician Alexy e US abdomen complete 2019-03-15 00:00:00 MARCELLA KAUFFMAN [facility] Computed tomography of abdomen and pelvis with contrast 2019 00:00:00 MARCELLA KAUFFMAN [facility] Plan of Care Planned Activity Planned Date Details Comments Source Instructions Strains [facility] Instructions Cervical Strain [facility] Encounters Start Date/Time End Date/Time Encounter Type Admission Type [facility] Care Department Encounter ID Source 2019-11-11 09:30:00 2019-11-11 09:30:00 Registered Emergency Room [facility] [id number] [facility] 2019-03-15 12:55:00 2019-03-15 18:41:00 Departed Emergency Room 1 NAVJOT PEDERSON [facility] [id number] [facility] 2018-08-20 11:52:00 2018-08-20 11:52:00 Registered Surgical Day Care [facility] [id number] [facility] 2018-08-06 17:56:00 2018-08-06 21:51:00 Departed Emergency Room 1 IRVING ZUÑIGA [facility] [id number] [facility] 2018-06-25 17:10:00 2018-06-25 20:09:00 Departed Emergency Room 1 SAMIR EMMANUEL [facility] [id number] [facility] 2017-12-02 10:43:00 2017-12-02 10:43:00 Registered Surgical Day Care [facility] [id number] [facility] 2017-05-15 20:35:00 2017-05-16 00:10:00 Departed Emergency Room ER DOT RTACY [facility] [id number] [facility] Results Test Description Test Time Test Comments Results Result Comments Source CT ABDOMEN/PELVIS W 2019-03-15 17:35:00 [facility] [address] [address] Patient Name: IVETTE DYSON MR #: [id number] : 1970 Age/Sex: 48/F Req #: [id number] Adm Physician: Ordered by: MARCELLA KAUFFMAN DRYING ROOM OPERATOR Report #: [id number] Location: ER Room/Bed: Procedure: [id number] CT/CT ABDOMEN/PELVIS W Exam Date: 03/15/19 Exam [...] Level (test code = 2951-2) 136 136-145 [facility]Potassium Lrmin9093-37-89 16:06:00* Test Item Value Reference Range Interpretation Comments Potassium Level (test code = 2823-3) 3.8 3.5-5.1 [facility] HospitalChloride Oximt7298-62-84 16:06:00* Test Item Value Reference Range Interpretation Comments Chloride Level (test code = 2075-0) 101 98-107 [facility] HospitalCarbon Dioxide Jjiys4873-74-54 16:06:00* Test Item Value Reference Range Interpretation Comments Carbon Dioxide Level (test code = 8-9) 26 22-29 [facility] HospitalAnion Tyk7764-53-53 16:06:00* Test Item Value Reference Range Interpretation Comments Anion Gap (test code = 17037-9) 12.8 8-16 [facility] HospitalBlood Urea Hinmroax4634-14-31 16:06:00* Test Item Value Reference Range Interpretation Comments Blood Urea Nitrogen (test code = 3094-0) 6 7-26 L [facility] HospitalCreatinine2020-01-07 16:06:00* Test Item Value Reference Range Interpretation Comments Creatinine (test code = 2160-0) 0.78 0.57-1.11 [facility] HospitalBUN/Creatinine Cqgff1689-39-45 16:06:00* Test Item Value Reference Range Interpretation Comments BUN/Creatinine Ratio (test code = 3097-3) 8 6-25 [facility] HospitalEstimat Glomerular Filtration Rate 2019-03-15 16:06:00* Test Item Value Reference Range Interpretation Comments Estimat Glomerular Filtration Rate (test code = 769676459) > 60 >60 Ranges were taken from the National Kidney Disease Education Program and the [facility] Foundation literature.Reference ranges:60 or greater: Uvrlbx05-76 ( for 3 consecutive months): Chronic kidney disease 15 or less: Kidney failureMethodist McKinney HospitalGlucose Woyab4220-67-88 16:06:00* Test Item Value Reference Range Interpretation Comments Glucose Level (test code = QOK8625) 205 74-118 H [facility] HospitalCalcium Tavqq3872-73-59 16:06:00* Test Item Value Reference Range Interpretation Comments Calcium Level (test code = 07124-4) 8.6 8.4-10.2 [facility] HospitalTotal Yvbyxuwqw2127-64-88 16:06:00* Test Item Value Reference Range Interpretation Comments Total Bilirubin (test code = 1975-2) 0.4 0.2-1.2 [facility] HospitalAspartate Amino Transf (AST/SGOT) 2019-03-15 16:06:00* Test Item Value Reference Range Interpretation Comments Aspartate Amino Transf (AST/SGOT) (test code = Aspartate Amino Transf (AST/SGOT)) 24 5-34 [facility] HospitalAlanine Aminotransferase (ALT/SGPT) 2019-03-15 16:06:00* Test Item Value Reference Range Interpretation Comments Alanine Aminotransferase (ALT/SGPT) (test code = 1742-6) 27 0-55 [facility] HospitalTotal Uqqngpz1362-17-14 16:06:00* Test Item Value Reference Range Interpretation Comments Total Protein (test code = 2885-2) 6.6 6.5-8.1 [facility] HospitalAlbumin2020-01-07 16:06:00* Test Item Value Reference Range Interpretation Comments Albumin (test code = 1751-7) 3.3 3.5-5.0 L [facility] HospitalGlobulin2020-01-07 16:06:00* Test Item Value Reference Range Interpretation Comments Globulin (test code = 89068-9) 3.3 2.3-3.5 [facility] HospitalAlbumin/Globulin Dxfcu3131-26-73 16:06:00 * Test Item Value Reference Range Interpretation Comments Albumin/Globulin Ratio (test code = 1759-0) 1.0 0.8-2.0 [facility] HospitalAlkaline Rlgfrasvqhd7101-95-24 16:06:00* Test Item Value Reference Range Interpretation Comments Alkaline Phosphatase (test code = 6768-6) 82 40-150 [facility] HospitalLipase2020-01-07 16:06:00* Test Item Value Reference Range Interpretation Comments Lipase (test code = 3040-3) 37 8-78 [facility] HospitalHuman Chorionic Gonadotropin, Qual 2019-03-15 16:01:00* Test Item Value Reference Range Interpretation Comments Human Chorionic Gonadotropin, Qual (test code = 2118-8) NEGATIVE NEGATIVE [facility] HospitalWhite Blood Zkglg5914-86-47 15:44:00* Test Item Value Reference Range Interpretation Comments White Blood Count (test code = 6690-2) 5.37 4.8-10.8 [facility] HospitalRed Blood Xukph3844-23-62 15:44:00* Test Item Value Reference Range Interpretation Comments Red Blood Count (test code = 789-8) 4.63 3.6-5.1 [facility] HospitalHemoglobin2020-01-07 15:44:00* Test Item Value Reference Range Interpretation Comments Hemoglobin (test code = 86478-9) 13.3 12.0-16.0 [facility] HospitalHematocrit2020-01-07 15:44:00* Test Item Value Reference Range Interpretation Comments Hematocrit (test code = 4544-3) 40.7 34.2-44.1 [facility] HospitalMean Corpuscular Xibqos6544-25-64 15:44:00* Test Item Value Reference Range Interpretation Comments Mean Corpuscular Volume (test code = 787-2) 87.9 81-99 [facility] HospitalMean Corpuscular Limgjcaynh2563-49-20 15:44:00* Test Item Value Reference Range Interpretation Comments Mean Corpuscular Hemoglobin (test code = 785-6) 28.7 28-32 [facility] HospitalMean Corpuscular Hemoglobin Concent 2019-03-15 15:44:00* Test Item Value Reference Range Interpretation Comments Mean Corpuscular Hemoglobin Concent (test code = 786-4) 32.7 31-35 [facility] HospitalRed Cell Distribution Wtctx3303-40-61 15:44:00* Test Item Value Reference Range Interpretation Comments Red Cell Distribution Width (test code = 94651-6) 14.5 11.7 -14.4 H [facility] HospitalPlatelet Hwugh8596-14-03 15:44:00* Test Item Value Reference Range Interpretation Comments Platelet Count (test code = 777-3) 234 140-360 [facility] HospitalNeutrophils (%) (Auto)2019-03-15 15:44:00 * Test Item Value Reference Range Interpretation Comments Neutrophils (%) (Auto) (test code = 33607-6) 49.9 38.7-80.0 [facility] HospitalLymphocytes (%) (Auto)2019-03-15 15:44:00 * Test Item Value Reference Range Interpretation Comments Lymphocytes (%) (Auto) (test code = 736-9) 41.0 18.0-39.1 H [facility] HospitalMonocytes (%) (Auto)2019-03-15 15:44:00* Test Item Value Reference Range Interpretation Comments Monocytes (%) (Auto) (test code = 5905-5) 6.5 4.4-11.3 [facility] HospitalEosinophils (%) (Auto)2019-03-15 15:44:00 * Test Item Value Reference Range Interpretation Comments Eosinophils (%) (Auto) (test code = 713-8) 2.2 0.0-6.0 [facility] HospitalBasophils (%) (Auto)2019-03-15 15:44:00* Test Item Value Reference Range Interpretation Comments Basophils (%) (Auto) (test code = 706-2) 0.2 0.0-1.0 [facility] HospitalIM GRANULOCYTES %2019-03-15 15:44:00* Test Item Value Reference Range Interpretation Comments IM GRANULOCYTES % (test code = IM GRANULOCYTES %) 0.2 0.0- 1.0 [facility] HospitalNeutrophils # (Auto)2019-03-15 15:44:00* Test Item Value Reference Range Interpretation Comments Neutrophils # (Auto) (test code = 751-8) 2.7 2.1-6.9 [facility] HospitalLymphocytes # (Auto)2019-03-15 15:44:00* Test Item Value Reference Range Interpretation Comments Lymphocytes # (Auto) (test code = 29097-0) 2.2 1.0-3.2 [facility] HospitalMonocytes # (Auto)2019-03-15 15:44:00* Test Item Value Reference Range Interpretation Comments Monocytes # (Auto) (test code = 742-7) 0.4 0.2-0.8 [facility] HospitalEosinophils # (Auto)2019-03-15 15:44:00* Test Item Value Reference Range Interpretation Comments Eosinophils # (Auto) (test code = 711-2) 0.1 0.0-0.4 [facility] HospitalBasophils # (Auto)2019-03-15 15:44:00* Test Item Value Reference Range Interpretation Comments Basophils # (Auto) (test code = 704-7) 0.0 0.0-0.1 [facility] HospitalAbsolute Immature Granulocyte (auto 2019-03-15 15:44:00* Test Item Value Reference Range Interpretation Comments Absolute Immature Granulocyte (auto (evelia t code = Absolute Immature Granulocyte (auto) 0.01 0-0.1 [facility] HospitalUS ABDOMEN KJJRACKU5499-47-96 15:14:00 [facility] [address] [address] Patient Name: IVETTE DYSON MR #: [id number] : [birth year] Age/Sex: 48/F Req #: [id number] Adm Physician: Ordered by: MARCELLA KAUFFMAN DRYING ROOM OPERATOR Report #: [id number] Location: ER Room/Bed: Procedure: [id number] US/US ABDOMEN COMPLETE Exam Date: 03/15/19 Exam [...] KAREN on 03/15/191516 COPY TO: MARCELLA KAUFFMAN DRYING ROOM OPERATOR Blood leukocytes automated count (number/volume)2019-03-15 13:07:00* Test Item Value Reference Range Interpretation Comments White Blood Count (test code = 6690-2) 5.37 4.8-10.8 [facility] HospitalBlood erythrocytes automated count (number/volume)2019-03-15 13:07:00* Test Item Value Reference Range Interpretation Comments Red Blood Count (test code = 789-8) 4.63 3.6-5.1 [facility] HospitalBlood hemoglobin measurement (moles/volume)2019-03-15 13:07:00* Test Item Value Reference Range Interpretation Comments Hemoglobin (test code = 16884-6) 13.3 12.0-16.0 [facility] HospitalAutomated blood hematocrit (volume fraction)2019-03-15 13:07:00* Test Item Value Reference Range Interpretation Comments Hematocrit (test code = 4544-3) 40.7 34.2-44.1 [facility] HospitalAutomated erythrocyte mean corpuscular bvfzrj3708-37-01 13:07:00* Test Item Value Reference Range Interpretation Comments Mean Corpuscular Volume (test code = 787-2) 87.9 81-99 [facility] HospitalAutomated erythrocyte mean corpuscular hemoglobin (mass per erythrocyte)2019-03-15 13:07:00* Test Item Value Reference Range Interpretation Comments Mean Corpuscular Hemoglobin (test code = 785-6) 28.7 28-32 [facility] HospitalAutomated erythrocyte mean corpuscular hemoglobin concentration measurement (mass/volume)2019-03-15 13:07:00* Test Item Value Reference Range Interpretation Comments Mean Corpuscular Hemoglobin Concent (test code = 786-4) 32.7 31-35 [facility] HospitalRDW YolTw-Fuy3440-73-07 13:07:00* Test Item Value Reference Range Interpretation Comments Red Cell Distribution Width (test code = 89423-1) 14.5 11.7 -14.4 [facility] HospitalAutunc [facility] blood platelet count (count/volume)2019-03-15 13:07:00* Test Item Value Reference Range Interpretation Comments Platelet Count (test code = 777-3) 234 140-360 [facility] segmented neutrophil count as percentage of total mlybjckhnr1452-42-64 13:07:00* Test Item Value Reference Range Interpretation Comments Neutrophils (%) (Auto) (test code = 86922-1) 49.9 38.7-80.0 [facility] blood lymphocyte count as percentage ot total hcirzkfnxv6409-88-01 13:07:00* Test Item Value Reference Range Interpretation Comments Lymphocytes (%) (Auto) (test code = 736-9) 41.0 18.0-39.1 [facility] HospitalAutcape fear valley [facility] hospitaled blood monocyte count as percentage of total jnxcvfuppp1047-79-26 13:07:00* Test Item Value Reference Range Interpretation Comments Monocytes (%) (Auto) (test code = 5905-5) 6.5 4.4-11.3 [facility] blood eosinophil count as percentage of total mvedqbryyj8073-72-69 13:07:00* Test Item Value Reference Range Interpretation Comments Eosinophils (%) (Auto) (test code = 713-8) 2.2 0.0-6.[address] [facility] blood basophil count as percentage of total pjtjvwninh6511-04-94 13:07:00* Test Item Value Reference Range Interpretation Comments Basophils (%) (Auto) (test code = 706-2) 0.2 0.0-1.0 [facility] HospitalFluoroscopic procedure less than one hour avufznpw4367-27-05 13:07:00* Test Item Value Reference Range Interpretation Comments IM GRANULOCYTES % (test code = IM GRANULOCYTES %) 0.2 0.0- 1.0 [facility] HospitalAutomated blood neutrophil count 2019-03-15 13:07:00* Test Item Value Reference Range Interpretation Comments Neutrophils # (Auto) (test code = 751-8) 2.7 2.1-6.9 [facility] HospitalBlood lymphocytes count (number/volume) 2019-03-15 13:07:00* Test Item Value Reference Range Interpretation Comments Lymphocytes # (Auto) (test code = 87300-6) 2.2 1.0-3.2 [facility] HospitalBlood monocytes automated count (number/volume)2019-03-15 13:07:00* Test Item Value Reference Range Interpretation Comments Monocytes # (Auto) (test code = 742-7) 0.4 0.2-0.8 [facility] HospitalAutomated blood eosinophil count 2019-03-15 13:07:00* Test Item Value Reference Range Interpretation Comments Eosinophils # (Auto) (test code = 711-2) 0.1 0.0-0.4 [facility] HospitalAutomated blood basophil count (count/volume)2019-03-15 13:07:00* Test Item Value Reference Range Interpretation Comments Basophils # (Auto) (test code = 704-7) 0.0 0.0-0.1 [facility] HospitalFluoroscopic procedure less than one hour ptdfyvla2376-35-66 13:07:00* Test Item Value Reference Range Interpretation Comments Absolute Immature Granulocyte (auto (evelia t code = Absolute Immature Granulocyte (auto) 0.01 0-0.1 [facility]ererum or plasma sodium measurement (moles/volume)2019-03-15 13:07:00* Test Item Value Reference Range Interpretation Comments Sodium Level (test code = 2951-2) 136 136-145 [facility] Centererum or plasma potassium measurement (moles/volume)2019-03-15 13:07:00* Test Item Value Reference Range Interpretation Comments Potassium Level (test code = 2823-3) 3.8 3.5-5.1 [facility] Centererum or plasma chloride measurement (moles/volume)2019-03-15 13:07:00* Test Item Value Reference Range Interpretation Comments Chloride Level (test code = 2075-0) 101 98-107 [facility] Centererum or plasma carbon dioxide, total measurement (moles/volume)2019-03-15 13:07:00* Test Item Value Reference Range Interpretation Comments Carbon Dioxide Level (test code = 2028-9) 26 22-29 [facility] Centererum or plasma anion npg7777-84-34 13:07:00* Test Item Value Reference Range Interpretation Comments Anion Gap (test code = 71172-8) 12.8 8-16 [facility] Centererum or plasma urea nitrogen measurement (mass/volume)2019-03-15 13:07:00* Test Item Value Reference Range Interpretation Comments Blood Urea Nitrogen (test code = 3094-0) 6 7-26 [facility] Centererum or plasma creatinine measurement (mass/volume)2019-03-15 13:07:00* Test Item Value Reference Range Interpretation Comments Creatinine (test code = 2160-0) 0.78 0.57-1.11 [facility] Centererum or plasma urea nitrogen/creatinine mass jipfr0294-53-85 13:07:00* Test Item Value Reference Range Interpretation Comments BUN/Creatinine Ratio (test code = 3097-3) 8 6-25 [facility] HospitalEstimated glomerular filtration rate (GFR) ukunijrznfijz3971-02-64 13:07:00* Test Item Value Reference Range Interpretation Comments Estimat Glomerular Filtration Rate (test code = 205879772) > 60 >60 Ranges were taken from the National Kidney Disease Education Program and the [facility] Kid[facility] Foundation literature.Reference ranges:60 or greater: Jbnsyf88-11 ( for 3 consecutive months): Chronic kidney disease 15 or less: Kidney failureMethodist McKinney HospitalGlucose wmncjhgxlnj0189-96-79 13:07:00* Test Item Value Reference Range Interpretation Comments Glucose Level (test code = GGX5097) 205 74-118 [facility] Centererum or plasma calcium measurement (mass/volume)2019-03-15 13:07:00* Test Item Value Reference Range Interpretation Comments Calcium Level (test code = 76424-7) 8.6 8.4-10.2 [facility] Centererum or plasma total bilirubin measurement (mass/volume)2019-03-15 13:07:00* Test Item Value Reference Range Interpretation Comments Total Bilirubin (test code = 1975-2) 0.4 0.2-1.2 [facility] HospitalFluoroscopic procedure less than one hour fwjgtamh6938-61-22 13:07:00* Test Item Value Reference Range Interpretation Comments Aspartate Amino Transf (AST/SGOT) (test code = Aspartate Amino Transf (AST/SGOT)) 24 5-34 [facility] Centererum or plasma alanine aminotransferase measurement (enzymatic activity/volume)2019-03-15 13:07:00* Test Item Value Reference Range Interpretation Comments Alanine Aminotransferase (ALT/SGPT) (test code = 1742-6) 27 0-55 [facility] Centererum or plasma protein measurement (mass/volume)2019-03-15 13:07:00* Test Item Value Reference Range Interpretation Comments Total Protein (test code = 2885-2) 6.6 6.5-8.1 [facility] Centererum or plasma albumin measurement (mass/volume)2019-03-15 13:07:00* Test Item Value Reference Range Interpretation Comments Albumin (test code = 1751-7) 3.3 3.5-5.0 [facility] HospitalPlasma globulin measurement (mass/volume) 2019-03-15 13:07:00* Test Item Value Reference Range Interpretation Comments Globulin (test code = 55566-2) 3.3 2.3-3.5 [facility] Centererum or plasma albumin/globulin mass qbjgj5274-14-51 13:07:00* Test Item Value Reference Range Interpretation Comments Albumin/Globulin Ratio (test code = 1759-0) 1.0 0.8-2.0 [facility] Centererum or plasma alkaline phosphatase measurement (enzymatic activity/volume)2019-03-15 13:07:00* Test Item Value Reference Range Interpretation Comments Alkaline Phosphatase (test code = 6768-6) 82 40-150 [facility] Centererum or plasma lipase measurement (enzymatic activity/volume)2019-03-15 13:07:00* Test Item Value Reference Range Interpretation Comments Lipase (test code = 3040-3) 37 8-78 [facility] Centererum or plasma choriogonadotropin ( test) myspodwdk3520-28-14 13:07:00* Test Item Value Reference Range Interpretation Comments Human Chorionic Gonadotropin, Qual (test code = 2118-8) NEGATIVE NEGATIVE [facility] HospitalBacterial urine qawudxa9642-85-00 13:07:00* Test Item Value Reference Range Interpretation Comments Urine Culture (test code = 630-4) KLEBSIELLA PNEUMONIAE-ESBL [facility] HospitalBedside Zytrvls3385-44-57 16:08:00* Test Item Value Reference Range Interpretation Comments Bedside Glucose (test code = 22827-6) 91 70-120 Meter ID: [id number] McKinney HospitalUrine WHU1230-94-34 20:54:00* Test Item Value Reference Range Interpretation Comments Urine WBC (test code = 5821-4) NONE 0-5 [facility] HospitalUrine NTC2054-97-02 20:54:00* Test Item Value Reference Range Interpretation Comments Urine RBC (test code = 85002-1) 0-5 0-5 [facility] HospitalUrine Fwdedypl2572-64-92 20:54:00* Test Item Value Reference Range Interpretation Comments Urine Bacteria (test code = 49338-8) NONE NONE [facility] HospitalUrine Epithelial Fjcvi3841-33-06 20:54:00 * Test Item Value Reference Range Interpretation Comments Urine Epithelial Cells (test code = 92706-8) FEW NONE [facility] HospitalUrine TIS3027-37-04 20:54:00* Test Item Value Reference Range Interpretation Comments Urine WBC (test code = 5821-4) NONE 0-5 [facility] HospitalUrine ISB5601-00-71 20:54:00* Test Item Value Reference Range Interpretation Comments Urine RBC (test code = 67511-8) 0-5 0-5 [facility] HospitalUrine Syebmord7545-68-49 20:54:00* Test Item Value Reference Range Interpretation Comments Urine Bacteria (test code = 26109-9) NONE NONE [facility] HospitalUrine Epithelial Oybcv4407-16-61 20:54:00 * Test Item Value Reference Range Interpretation Comments Urine Epithelial Cells (test code = 73839-7) FEW NONE [facility] HospitalCT ABDOMEN/PELVIS G8877-27-40 20:46:00 [facility] [address] [place] [address] Patient Name: IVETTE DYSON MR #: [id number] : [birth year] Age/Sex: 48/F Req #: [id number] Adm Physician: Ordered by: EDISON CANAS DRYING ROOM OPERATOR Report #: [id number] Location: ER Room/Bed: Procedure: [id number] CT /CT ABDOMEN/PELVIS W Exam Date: 08/06/18 Exam Time: 1944 REPORT STATUS: Signed EXAM: CT Abdomen and Pelvis WITH contrast INDICATION: ABD BLOATING AND P AIN [id number] COMPARISON: Gallbladder ultrasound 05/15/2017 TECHNIQUE: Abdomen [...] hepatic lesions. No biliary ductal dilation. GALLBLADDER: N o radio-opaque stones or sludge. No wall thickening. [...] RETROPERITONEUM: No free air or fluid. BONES: Unremarkable . SOFT TISSUES: Unremarkable. IMPRESSION: Prominent flu id-filled loops of the small bowel in the left upper quadrant with associated mild wall thickening suggestive of nonspecific enteritis. Signed by: Dr. Yaneli Adames M.D. on 08/06/2018 8:49 PM Dictated By: ZULMA ADAMES MD 48 COPY TO: EDISON CANAS DRYING ROOM OPERATOR Urine Rvkao6608-98-75 20:35:00* Test Item Value Reference Range Interpretation Comments Urine Color (test code = 5778-6) YELLOW [facility]LLOW [facility] Ufsywpv6041-99-55 20:35:00* Test Item Value Reference Range Interpretation Comments Urine Clarity (test code = 18292-3) CLEAR CLEAR [facility] Specific Krvzopa3598-95-65 20:35:00 * Test Item Value Reference Range Interpretation Comments Urine Specific [place] (test code = 5811-5) 1.010 1.010-1.02 5 [facility] wF0832-39-68 20:35:00* Test Item Value Reference Range Interpretation Comments Urine pH (test code = 11970-3) 7.5 5-7 [facility] Leukocyte Xlezglog9703-59-92 20:35:00* Test Item Value Reference Range Interpretation Comments Urine Leukocyte Esterase (test code = 22084-7) NEGATIVE NEGATIV E [facility] Uldwoph8702-30-68 20:35:00* Test Item Value Reference Range Interpretation Comments Urine Nitrite (test code = 37589-3) NEGATIVE NEGATIVE [facility] Rvxmche6184-65-16 20:35:00* Test Item Value Reference Range Interpretation Comments Urine Protein (test code = 38060-3) NEGATIVE NEGATIVE [facility] Glucose (UA)2018-08-06 20:35:00* Test Item Value Reference Range Interpretation Comments Urine Glucose (UA) (test code = 47230-3) NEGATIVE NEGATIVE [facility] Mhelamk1644-10-62 20:35:00* Test Item Value Reference Range Interpretation Comments Urine Ketones (test code = 45095-9) NEGATIVE NEGATIVE [facility] Yokpiylxdmiu0220-96-24 20:35:00* Test Item Value Reference Range Interpretation Comments Urine Urobilinogen (test code = 86151-7) 0.2 0.2-1 [facility] Scahvsnpd9017-48-43 20:35:00* Test Item Value Reference Range Interpretation Comments Urine Bilirubin (test code = 1977-8) NEGATIVE NEGATIVE [facility] Icnlf8925-68-89 20:35:00* Test Item Value Reference Range Interpretation Comments Urine Blood (test code = 48492-8) MODERATE NEGATIVE [facility] Ckioa0643-76-65 20:35:00* Test Item Value Reference Range Interpretation Comments Urine Color (test code = 5778-6) YELLOW YELLOW [facility] Gipiwcx1950-07-23 20:35:00* Test Item Value Reference Range Interpretation Comments Urine Clarity (test code = 29473-7) CLEAR CLEAR [facility] Specific Dmtbfwj6607-99-42 20:35:00 * Test Item Value Reference Range Interpretation Comments Urine Specific [place] (test code = 5811-5) 1.010 1.010-1.02 5 [facility] hZ4396-74-51 20:35:00* Test Item Value Reference Range Interpretation Comments Urine pH (test code = 18592-0) 7.5 5-7 [facility] Leukocyte Pgmgznit0522-07-05 20:35:00* Test Item Value Reference Range Interpretation Comments Urine Leukocyte Esterase (test code = 00560-9) NEGATIVE NEGATIV E [facility] Ytbdlhe1299-02-18 20:35:00* Test Item Value Reference Range Interpretation Comments Urine Nitrite (test code = 42361-0) NEGATIVE NEGATIVE [facility] Oznrrjt0573-72-88 20:35:00* Test Item Value Reference Range Interpretation Comments Urine Protein (test code = 82283-3) NEGATIVE NEGATIVE [facility] Glucose (UA)2018-08-06 20:35:00* Test Item Value Reference Range Interpretation Comments Urine Glucose (UA) (test code = 94394-1) NEGATIVE NEGATIVE [facility] Hffrfmk9861-42-00 20:35:00* Test Item Value Reference Range Interpretation Comments Urine Ketones (test code = 08463-2) NEGATIVE NEGATIVE [facility] Jjwtmuogbfnn3249-84-92 20:35:00* Test Item Value Reference Range Interpretation Comments Urine Urobilinogen (test code = 57908-1) 0.2 0.2-1 [facility] Eqlindupn4699-11-90 20:35:00* Test Item Value Reference Range Interpretation Comments Urine Bilirubin (test code = 1977-8) NEGATIVE NEGATIVE [facility] Biqet9528-50-96 20:35:00* Test Item Value Reference Range Interpretation Comments Urine Blood (test code = 97448-6) MODERATE NEGATIVE [facility] Wycue2021-14-88 19:11:00* Test Item Value Reference Range Interpretation Comments Sodium Level (test code = 2951-2) 136 136-145 [facility]Potassium Spsfh7867-78-56 19:11:00* Test Item Value Reference Range Interpretation Comments Potassium Level (test code = 2823-3) 3.7 3.5-5.1 [facility] HospitalChloride Dpdau4386-89-95 19:11:00* Test Item Value Reference Range Interpretation Comments Chloride Level (test code = 2075-0) 102 98-107 [facility] HospitalCarbon Dioxide Yuusz8510-57-72 19:11:00* Test Item Value Reference Range Interpretation Comments Carbon Dioxide Level (test code = 2028-9) 27 22-29 [facility] HospitalAnion Mut9045-60-44 19:11:00* Test Item Value Reference Range Interpretation Comments Anion Gap (test code = 18681-2) 10.7 8-16 [facility] HospitalBlood Urea Xxajkawj4470-24-43 19:11:00* Test Item Value Reference Range Interpretation Comments Blood Urea Nitrogen (test code = 3094-0) 7 7-26 [facility] HospitalCreatinine2019-05-31 19:11:00* Test Item Value Reference Range Interpretation Comments Creatinine (test code = 2160-0) 0.77 0.57-1.11 [facility] HospitalBUN/Creatinine Idtno4945-67-34 19:11:00* Test Item Value Reference Range Interpretation Comments BUN/Creatinine Ratio (test code = 3097-3) 9 6-25 [facility] HospitalEstimat Glomerular Filtration Rate 2018-08-06 19:11:00* Test Item Value Reference Range Interpretation Comments Estimat Glomerular Filtration Rate (test code = 515487655) > 60 >60 Ranges were taken from the National Kidney Disease Education Program and the [facility] literature.Reference ranges:60 or greater: Ohgkmo30-56 ( for 3 consecutive months): Chronic kidney disease 15 or less: Kidney failureMethodist McKinney HospitalGlucose Oqzhy5562-51-85 19:11:00* Test Item Value Reference Range Interpretation Comments Glucose Level (test code = BCG9984) 193 74-118 H [facility] HospitalCalcium Akvam0735-27-32 19:11:00* Test Item Value Reference Range Interpretation Comments Calcium Level (test code = 98123-9) 8.8 8.4-10.2 [facility] HospitalTotal Oyslyvgcr7300-85-06 19:11:00* Test Item Value Reference Range Interpretation Comments Total Bilirubin (test code = 1975-2) 0.3 0.2-1.2 [facility] HospitalAspartate Amino Transf (AST/SGOT) 2018-08-06 19:11:00* Test Item Value Reference Range Interpretation Comments Aspartate Amino Transf (AST/SGOT) (test code = Aspartate Amino Transf (AST/SGOT)) 31 5-34 [facility] HospitalAlanine Aminotransferase (ALT/SGPT) 2018-08-06 19:11:00* Test Item Value Reference Range Interpretation Comments Alanine Aminotransferase (ALT/SGPT) (test code = 1742-6) 43 0-55 [facility] HospitalTotal Baxifsn6888-09-96 19:11:00* Test Item Value Reference Range Interpretation Comments Total Protein (test code = 2885-2) 6.8 6.5-8.1 [facility] HospitalAlbumin2019-05-31 19:11:00* Test Item Value Reference Range Interpretation Comments Albumin (test code = 1751-7) 3.4 3.5-5.0 L [facility] HospitalGlobulin2019-05-31 19:11:00* Test Item Value Reference Range Interpretation Comments Globulin (test code = 54193-2) 3.4 2.3-3.5 [facility] HospitalAlbumin/Globulin Qmzak4119-39-12 19:11:00 * Test Item Value Reference Range Interpretation Comments Albumin/Globulin Ratio (test code = 1759-0) 1.0 0.8-2.0 [facility] HospitalAlkaline Esexczodicw7793-09-73 19:11:00* Test Item Value Reference Range Interpretation Comments Alkaline Phosphatase (test code = 6768-6) 89 40-150 [facility] HospitalWhite Blood Nobak4520-42-98 18:40:00* Test Item Value Reference Range Interpretation Comments White Blood Count (test code = 6690-2) 7.82 4.8-10.8 [facility] HospitalRed Blood Kakfk7590-75-04 18:40:00* Test Item Value Reference Range Interpretation Comments Red Blood Count (test code = 789-8) 4.54 3.6-5.1 [facility] HospitalHemoglobin2019-05-31 18:40:00* Test Item Value Reference Range Interpretation Comments Hemoglobin (test code = 28700-3) 13.0 12.0-16.0 [facility] HospitalHematocrit2019-05-31 18:40:00* Test Item Value Reference Range Interpretation Comments Hematocrit (test code = 4544-3) 38.8 34.2-44.1 [facility] HospitalMean Corpuscular Gjteig5910-60-90 18:40:00* Test Item Value Reference Range Interpretation Comments Mean Corpuscular Volume (test code = 787-2) 85.5 81-99 [facility] HospitalMean Corpuscular Giujvqvfll0569-77-40 18:40:00* Test Item Value Reference Range Interpretation Comments Mean Corpuscular Hemoglobin (test code = 785-6) 28.6 28-32 [facility] HospitalMean Corpuscular Hemoglobin Concent 2018-08-06 18:40:00* Test Item Value Reference Range Interpretation Comments Mean Corpuscular Hemoglobin Concent (test code = 786-4) 33.5 31-35 [facility] HospitalRed Cell Distribution Kccmc9928-48-25 18:40:00* Test Item Value Reference Range Interpretation Comments Red Cell Distribution Width (test code = 40714-3) 16.2 11.7 -14.4 H [facility] HospitalPlatelet Zdamo9280-86-27 18:40:00* Test Item Value Reference Range Interpretation Comments Platelet Count (test code = 777-3) 284 140-360 [facility] HospitalNeutrophils (%) (Auto)2018-08-06 18:40:00 * Test Item Value Reference Range Interpretation Comments Neutrophils (%) (Auto) (test code = 18270-7) 65.5 38.7-80.0 [facility] HospitalLymphocytes (%) (Auto)2018-08-06 18:40:00 * Test Item Value Reference Range Interpretation Comments Lymphocytes (%) (Auto) (test code = 736-9) 25.6 18.0-39.1 [facility] HospitalMonocytes (%) (Auto)2018-08-06 18:40:00* Test Item Value Reference Range Interpretation Comments Monocytes (%) (Auto) (test code = 5905-5) 6.6 4.4-11.3 [facility] HospitalEosinophils (%) (Auto)2018-08-06 18:40:00 * Test Item Value Reference Range Interpretation Comments Eosinophils (%) (Auto) (test code = 713-8) 1.3 0.0-6.0 [facility] HospitalBasophils (%) (Auto)2018-08-06 18:40:00* Test Item Value Reference Range Interpretation Comments Basophils (%) (Auto) (test code = 706-2) 0.5 0.0-1.0 [facility] HospitalIM GRANULOCYTES %2018-08-06 18:40:00* Test Item Value Reference Range Interpretation Comments IM GRANULOCYTES % (test code = IM GRANULOCYTES %) 0.5 0.0- 1.0 [facility] HospitalNeutrophils # (Auto)2018-08-06 18:40:00* Test Item Value Reference Range Interpretation Comments Neutrophils # (Auto) (test code = 751-8) 5.1 2.1-6.9 [facility] HospitalLymphocytes # (Auto)2018-08-06 18:40:00* Test Item Value Reference Range Interpretation Comments Lymphocytes # (Auto) (test code = 74408-8) 2.0 1.0-3.2 [facility] HospitalMonocytes # (Auto)2018-08-06 18:40:00* Test Item Value Reference Range Interpretation Comments Monocytes # (Auto) (test code = 742-7) 0.5 0.2-0.8 [facility] HospitalEosinophils # (Auto)2018-08-06 18:40:00* Test Item Value Reference Range Interpretation Comments Eosinophils # (Auto) (test code = 711-2) 0.1 0.0-0.4 [facility] HospitalBasophils # (Auto)2018-08-06 18:40:00* Test Item Value Reference Range Interpretation Comments Basophils # (Auto) (test code = 704-7) 0.0 0.0-0.1 [facility] HospitalAbsolute Immature Granulocyte (auto 2018-08-06 18:40:00* Test Item Value Reference Range Interpretation Comments Absolute Immature Granulocyte (auto (evelia t code = Absolute Immature Granulocyte (auto) 0.04 0-0.1 [facility] HospitalCHEST SINGLE (NOT PORTABLE)2018-06-25 18:21:00 [facility] [address] [place] [address] Patient Name: IVETTE DYSON MR #: [id number] : 1970 Age/Sex: 48/F Req #: [id number] Adm Physician: Ordered by: SAMIR EMMANUEL MD Report #: [id number] Location: ER Room/Bed: Procedure: [id number] DX/CHEST SINGLE (NOT PORTABLE) Exam Date: 06/25/18 E xam Time: 1755 REPORT STATUS: Sonali d Examination: Single AP [...] 06/25/181821 COPY TO: SAMIR EMMANUEL MD Bedside Icsgpqh5155-36-33 11:23:00* Test Item Value Reference Range Interpretation Comments Bedside Glucose (test code = 72191-8) 102 70-120 Meter ID: [id number] McKinney HospitalBedside Glucose 2017-12-02 11:23:00* Test Item Value Reference Range Interpretation Comments Bedside Glucose (test code = 41611-3) 102 70-120 Meter ID: [id number] McKinney HospitalUrine Test 2017-12-02 11:12:00* Test Item Value Reference Range Interpretation Comments Urine Test (test code = 2106-3) NEGATIVE NEGATIVE [facility] HospitalUrine Vefs1437-19-98 11:12:00* Test Item Value Reference Range Interpretation Comments Urine Test (test code = 2106-3) NEGATIVE NEGATIVE [facility] HospitalUrine CMQ2622-68-22 22:05:00* Test Item Value Reference Range Interpretation Comments Urine WBC (test code = 5821-4) NONE 0-5 [facility] HospitalUrine CDU6716-99-05 22:05:00* Test Item Value Reference Range Interpretation Comments Urine RBC (test code = 85576-7) NONE 0-5 [facility] HospitalUrine Auelcxiq0800-47-50 22:05:00* Test Item Value Reference Range Interpretation Comments Urine Bacteria (test code = 67330-2) NONE NONE [facility] HospitalUrine Epithelial Innbt5196-65-43 22:05:00 * Test Item Value Reference Range Interpretation Comments Urine Epithelial Cells (test code = 01300-8) NONE NONE [facility] Centerodium Pfhls9169-10-29 22:04:00* Test Item Value Reference Range Interpretation Comments Sodium Level (test code = 2951-2) 139 136-145 [facility] HospitalPotassium Ktutt8066-11-35 22:04:00* Test Item Value Reference Range Interpretation Comments Potassium Level (test code = 2823-3) 4.0 3.5-5.1 [facility] HospitalChloride Qjrwl4503-52-91 22:04:00* Test Item Value Reference Range Interpretation Comments Chloride Level (test code = 2075-0) 104 98-107 [facility] HospitalCarbon Dioxide Kvyhj3410-86-66 22:04:00* Test Item Value Reference Range Interpretation Comments Carbon Dioxide Level (test code = 2028-9) 26 22-29 [facility] HospitalAnion Edu0954-31-49 22:04:00* Test Item Value Reference Range Interpretation Comments Anion Gap (test code = 78408-7) 13.0 8-16 [facility] HospitalBlood Urea Kygpubkn9555-33-06 22:04:00* Test Item Value Reference Range Interpretation Comments Blood Urea Nitrogen (test code = 3094-0) 6 7-26 L [facility] HospitalCreatinine2018-03-09 22:04:00* Test Item Value Reference Range Interpretation Comments Creatinine (test code = 2160-0) 0.73 0.57-1.11 [facility] HospitalBUN/Creatinine Vhfly6223-46-03 22:04:00* Test Item Value Reference Range Interpretation Comments BUN/Creatinine Ratio (test code = 3097-3) 8 6-25 [facility] HospitalEstimat Glomerular Filtration Rate 2017-05-15 22:04:00* Test Item Value Reference Range Interpretation Comments Estimat Glomerular Filtration Rate (test code = 00201-7) 60- >60 Ranges were taken from the National Kidney Disease Education Program and the [facility] literature.Reference ranges:60 or greater: Ubfljj25-41 ( for 3 consecutive months): Chronic kidney disease 15 or less: Kidney failureMethodist McKinney HospitalGlucose Svjhe0706-69-19 22:04:00* Test Item Value Reference Range Interpretation Comments Glucose Level (test code = MKV7393) 101 74-118 [facility] HospitalCalcium Wjudw9479-14-82 22:04:00* Test Item Value Reference Range Interpretation Comments Calcium Level (test code = 20634-5) 8.8 8.4-10.2 [facility] HospitalTotal Fzkkzzcqs9329-25-79 22:04:00* Test Item Value Reference Range Interpretation Comments Total Bilirubin (test code = 1975-2) -0.3 0.2-1.2 [facility] HospitalAspartate Amino Transf (AST/SGOT) 2017-05-15 22:04:00* Test Item Value Reference Range Interpretation Comments Aspartate Amino Transf (AST/SGOT) (test code = Aspartate Amino Transf (AST/SGOT)) 27 5-34 [facility] HospitalAlanine Aminotransferase (ALT/SGPT) 2017-05-15 22:04:00* Test Item Value Reference Range Interpretation Comments Alanine Aminotransferase (ALT/SGPT) (test code = 1742-6) 31 0-55 [facility] HospitalTotal Eqlehoc4680-04-11 22:04:00* Test Item Value Reference Range Interpretation Comments Total Protein (test code = 2885-2) 8.0 6.5-8.1 [facility] HospitalAlbumin2018-03-09 22:04:00* Test Item Value Reference Range Interpretation Comments Albumin (test code = 1751-7) 3.9 3.5-5.0 [facility] HospitalGlobulin2018-03-09 22:04:00* Test Item Value Reference Range Interpretation Comments Globulin (test code = 28856-7) 4.1 2.3-3.5 H [facility] HospitalAlbumin/Globulin Rhptf9530-89-42 22:04:00 * Test Item Value Reference Range Interpretation Comments Albumin/Globulin Ratio (test code = 1759-0) 1.0 0.8-2.0 [facility] HospitalAlkaline Gohmfnzzhhb3973-66-25 22:04:00* Test Item Value Reference Range Interpretation Comments Alkaline Phosphatase (test code = 6768-6) 88 40-150 [facility] HospitalAmylase Sofsm8171-44-74 22:04:00* Test Item Value Reference Range Interpretation Comments Amylase Level (test code = 1798-8) 61 25-125 [facility] HospitalLipase2018-03-09 22:04:00* Test Item Value Reference Range Interpretation Comments Lipase (test code = 3040-3) 28 8-78 [facility] HospitalUrine Qzzjm2679-92-77 21:50:00* Test Item Value Reference Range Interpretation Comments Urine Color (test code = 5778-6) YELLOW YELLOW [facility] HospitalUrine Jazcpqq1653-43-84 21:50:00* Test Item Value Reference Range Interpretation Comments Urine Clarity (test code = 19666-9) CLEAR CLEAR [facility] Specific Sbcjthk1142-30-89 21:50:00 * Test Item Value Reference Range Interpretation Comments Urine Specific [place] (test code = 5811-5) 1.010 1.010-1.02 5 [facility] HospitalUrine jT9403-89-12 21:50:00* Test Item Value Reference Range Interpretation Comments Urine pH (test code = 80667-2) 6 5-7 [facility] Leukocyte Uakbadwn8661-62-56 21:50:00* Test Item Value Reference Range Interpretation Comments Urine Leukocyte Esterase (test code = 5799-2) NEGATIVE NEGATIVE [facility] Cuazcyb1572-27-12 21:50:00* Test Item Value Reference Range Interpretation Comments Urine Nitrite (test code = 68003-7) NEGATIVE NEGATIVE [facility] HospitalU[facility] Lfbjcyx3050-64-11 21:50:00* Test Item Value Reference Range Interpretation Comments Urine Protein (test code = 5804-0) NEGATIVE NEGATIVE [facility] HospitalUrine Glucose (UA)2017-05-15 21:50:00* Test Item Value Reference Range Interpretation Comments Urine Glucose (UA) (test code = 2349-9) NEGATIVE NEGATIVE [facility] Ubsnqyb4917-47-90 21:50:00* Test Item Value Reference Range Interpretation Comments Urine Ketones (test code = 32076-0) NEGATIVE NEGATIVE [facility] Hnhszohhvnjc0894-89-83 21:50:00* Test Item Value Reference Range Interpretation Comments Urine Urobilinogen (test code = 16301-1) 0.2 0.2-1 [facility] Lccbmhlkq4811-36-92 21:50:00* Test Item Value Reference Range Interpretation Comments Urine Bilirubin (test code = 1978-6) NEGATIVE NEGATIVE [facility] HospitalUrine Vgtua4578-38-19 21:50:00* Test Item Value Reference Range Interpretation Comments Urine Blood (test code = 22608-4) NEGATIVE NEGATIVE [facility] HospitalWhite Blood Iaoow2714-64-95 21:48:00* Test Item Value Reference Range Interpretation Comments White Blood Count (test code = 6690-2) 8.57 4.8-10.8 [facility] HospitalRed Blood Ugvqq5063-77-22 21:48:00* Test Item Value Reference Range Interpretation Comments Red Blood Count (test code = 789-8) 4.42 3.6-5.1 [facility] HospitalHemoglobin2018-03-09 21:48:00* Test Item Value Reference Range Interpretation Comments Hemoglobin (test code = 33090-7) 12.6 12.0-16.0 [facility] HospitalHematocrit2018-03-09 21:48:00* Test Item Value Reference Range Interpretation Comments Hematocrit (test code = 4544-3) 38.0 34.2-44.1 [facility] HospitalMean Corpuscular Pxspqj6085-53-48 21:48:00* Test Item Value Reference Range Interpretation Comments Mean Corpuscular Volume (test code = 787-2) 86.0 81-99 [facility] HospitalMean Corpuscular Wrbkveocer8717-02-86 21:48:00* Test Item Value Reference Range Interpretation Comments Mean Corpuscular Hemoglobin (test code = 785-6) 28.5 28-32 [facility] HospitalMean Corpuscular Hemoglobin Concent 2017-05-15 21:48:00* Test Item Value Reference Range Interpretation Comments Mean Corpuscular Hemoglobin Concent (test code = 786-4) 33.2 31-35 [facility] HospitalRed Cell Distribution Dvfhg5595-86-16 21:48:00* Test Item Value Reference Range Interpretation Comments Red Cell Distribution Width (test code = 57985-9) 13.8 11.7 -14.4 [facility] HospitalPlatelet Lwruq6280-30-35 21:48:00* Test Item Value Reference Range Interpretation Comments Platelet Count (test code = 777-3) 283 140-360 [facility] HospitalNeutrophils (%) (Auto)2017-05-15 21:48:00 * Test Item Value Reference Range Interpretation Comments Neutrophils (%) (Auto) (test code = 37910-0) 55.6 38.7-80.0 [facility] HospitalLymphocytes (%) (Auto)2017-05-15 21:48:00 * Test Item Value Reference Range Interpretation Comments Lymphocytes (%) (Auto) (test code = 736-9) 34.0 18.0-39.1 [facility] HospitalMonocytes (%) (Auto)2017-05-15 21:48:00* Test Item Value Reference Range Interpretation Comments Monocytes (%) (Auto) (test code = 5905-5) 8.3 4.4-11.3 [facility] HospitalEosinophils (%) (Auto)2017-05-15 21:48:00 * Test Item Value Reference Range Interpretation Comments Eosinophils (%) (Auto) (test code = 713-8) 1.2 0.0-6.0 [facility] HospitalBasophils (%) (Auto)2017-05-15 21:48:00* Test Item Value Reference Range Interpretation Comments Basophils (%) (Auto) (test code = 706-2) 0.5 0.0-1.0 [facility] HospitalIM GRANULOCYTES %2017-05-15 21:48:00* Test Item Value Reference Range Interpretation Comments IM GRANULOCYTES % (test code = IM GRANULOCYTES %) 0.4 0.0- 1.0 [facility] HospitalNeutrophils # (Auto)2017-05-15 21:48:00* Test Item Value Reference Range Interpretation Comments Neutrophils # (Auto) (test code = 751-8) 4.8 2.1-6.9 [facility] HospitalLymphocytes # (Auto)2017-05-15 21:48:00* Test Item Value Reference Range Interpretation Comments Lymphocytes # (Auto) (test code = 83372-0) 2.9 1.0-3.2 [facility] HospitalMonocytes # (Auto)2017-05-15 21:48:00* Test Item Value Reference Range Interpretation Comments Monocytes # (Auto) (test code = 742-7) 0.7 0.2-0.8 [facility] HospitalEosinophils # (Auto)2017-05-15 21:48:00* Test Item Value Reference Range Interpretation Comments Eosinophils # (Auto) (test code = 711-2) 0.1 0.0-0.4 [facility] HospitalBasophils # (Auto)2017-05-15 21:48:00* Test Item Value Reference Range Interpretation Comments Basophils # (Auto) (test code = 704-7) 0.0 0.0-0.1 [facility] HospitalAbsolute Immature Granulocyte (auto 2017-05-15 21:48:00* Test Item Value Reference Range Interpretation Comments Absolute Immature Granulocyte (auto (evelia t code = Absolute Immature Granulocyte (auto) 0.03 0-0.1 [facility] HospitalHEPTOBILIARY W PHARM [facility] [address] [place] [address] Patient Name: IVETTE DYSON MR #: [id number] : 1970 Age/Sex: 46/F Req #: [id number] Adm Physician: Ordered by: NATE SPRINGER Report #: [id number] Location: [place] Room/Bed: Procedure: [id number] NM/HEPTOBILIARY W PHARM Exam Date: 06/15/17 Exam Time: 08 REPORT STATUS: S igned Hepatobiliary Scan with [...] of 28% supports the clinical diagnosis of 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 Signed by: Dr. Dilip Ramirez M.D. on 06/15/2017 3:45 PM Dictated By: DILIP RAMIREZ MD 154 Transcribed By: KAREN on 06/15/17 154 COPY TO: NATE SPRINGER GALLBLADDER [place] [address] Patient Name: IVETTE GONZALEZ MR #: [id number] : 1970 Age/Sex: 46/F Req #: [id number] Adm Physician: Ordered by: DOT TRACY MD Report #: [id number] Location: ER Room/Bed: Procedure: [id number] US/US RUSLAN DDDAMON Exam Date: 05/15/17 Exam Time: 2242 REPOR [...] 11:13 PM Dictated By: DANE PERSON MD [id number] COPY TO: RAUL TRACY MD
== END 2020-01-19 18:09 | disposition home or self-care (01) ==
LOC: ER 17:30
DX: U07.1 COVID-19 (principal); R05 Cough; R06.00 Dyspnea, unspecified; E11.9 Type 2 diabetes mellitus without complications; G40.909 Epilepsy, unspecified, not intractable, without status epilepticus; G47.419 Narcolepsy without cataplexy
CPT/HCPCS: 99282

== ENCOUNTER 2020-01-28 11:58 | Inpatient (IN) | payer BC ==
[~2020-01-28] VITALS: Ht 152.4 cm; Wt 77.1 kg
[2020-01-28] MEDS ORDERED: ONDANSETRON HCL INJ 2MG/ML 2ML 2 MG/ML VIAL IV STA (12:07)
[2020-01-28] MEDS ORDERED: MORPHINE SULFATE INJ 4 MG/ML INJ 1ML IV PRN (12:15)
--- OUTSIDE RECORDS SUMMARY | 2020-01-28 12:25 | XMS REPORT | Continuity of Care Document ---
Author Author [facility] t Organization [facility] Address [address] [place] [id number] Phone Unavailable Care Team Providers Care Customer Account Manager Name Role Phone NATE SPRINGER PCP Froylan PEDERSON Attphys Unavailable Froylan ZUÑIGA Attphys Unavailable LIEN, Brian DAWSON Attphys Unavailable NATE SPRINGER Attphys Unavailable Yovanny TRACY Attphys Unavailable Payers Payer Name Policy Type Policy Number Effective Date Expiration Date Brian davis [facility] [id number] 2019 00:00:00 [facility] Problems Condition Name Condition Details Condition Category Status Onset Date Resolution Date Last Treatment Date Treating Clinician Comments Source Muscle spasm Problem Active [facility] Infection due to severe acute respiratory syndrome coronavir us 2 (SARS-CoV-2) Problem Active [facility] Allergies, Adverse Reactions, Alerts This patient has no known allergies or adverse reactions. Social History Social Habit Start Date Stop Date Quantity Comments Source Sex Assigned At 1970 00:00:00 1970 00:00:00 Female [facility] Medications Ordered Medication Name Filled Medication Name Start Date Stop Da te Current Medication? Ordering Clinician Indication Dosage Frequency Signature (SIG) Comments Components Source Metformin Hcl Metformin Hcl Yes 500 Twice A Day [facility] Fluoxetine Hcl Fluoxetine Hcl 2017-11-24 00:00:00 No 20 Daily [facility] Vital Signs Vital Name Observation Time Observation Value Comments Source Oxygen saturation by Pulse oximetry 2020-01-19 18:00:00 98 /min [facility] Weight 2020-01-19 17:21:00 160 [lb_av] [facility] BMI (Body Mass Index) 2020-01-19 17:21:00 25.1 kg/m2 [facility] Weight 2019-11-11 09:11:00 176 [lb_av] [facility] BMI (Body Mass Index) 2019-11-11 09:11:00 29.3 kg/m2 [facility] Body Temperature 2019-03-15 18:38:00 98.8 [degF] [facility] Procedures This patient has no known procedures. Plan of Care Planned Activity Planned Date Details Comments Source Instructions COVID-19: 05/23/2019 [facility] Encounters Start Date/Time End Date/Time Encounter Type Admission Type Attendi [facility] Care Department Encounter ID Source 2020-01-19 17:30:00 2020-01-19 18:09:00 Departed Emergency Room [facility] [id number] [facility] 2019-11-11 10:30:00 2019-11-11 10:50:00 Departed Emergency Room [facility] [id number] [facility] 2019-03-15 12:55:00 2019-03-15 18:41:00 Departed Emergency Room 1 NAVJOT PEDERSON [facility] [id number] [facility] 2018-08-20 11:52:00 2018-08-20 11:52:00 Registered Surgical Day Care [facility] [id number] [facility] 2018-08-06 17:56:00 2018-08-06 21:51:00 Departed Emergency Room 1 IRVING ZUÑIGA [facility] [id number] [facility] 2018-06-25 17:10:00 2018-06-25 20:09:00 Departed Emergency Room 1 SAMIR EMMANUEL [facility] [id number] [facility] 2017-12-02 10:43:00 2017-12-02 10:43:00 Registered Surgical Day Care [facility] [id number] [facility] 2017-05-15 20:35:00 2017-05-16 00:10:00 Departed Emergency Room ER DOT TRACY [facility] [id number] [facility] Results Test Description Test Time Test Comments Results Result Comments Source CT ABDOMEN/PELVIS W 2019-03-15 17:35:00 [facility] [address] [address] Patient Name: IVETTE DYSON MR #: [id number] : 1970 Age/Sex: 48/F Req #: [id number] Adm Physician: Ordered by: MARCELLA KAUFFMAN NP Report #: [id number] Location: ER Room/Bed: Procedure: [id number] CT/CT ABDOMEN/PELVIS W Exam Date: 03/15/19 Exam [...] (test code = 2951-2) 136 136-145 [facility] CenterPotassium Vvoqu1693-84-17 16:06:00* Test Item Value Reference Range Interpretation Comments Potassium Level (test code = 2823-3) 3.8 3.5-5.1 [facility] CenterChloride Regle2977-46-42 16:06:00* Test Item Value Reference Range Interpretation Comments Chloride Level (test code = 2075-0) 101 98-107 [facility] CenterCarbon Dioxide Fityh5476-85-67 16:06:00* Test Item Value Reference Range Interpretation Comments Carbon Dioxide Level (test code = 2028-9) 26 22-29 [facility] CenterAnion Abt9355-71-34 16:06:00* Test Item Value Reference Range Interpretation Comments Anion Gap (test code = 18665-8) 12.8 8-16 [facility] CenterBlood Urea Sohztvka4383-04-99 16:06:00* Test Item Value Reference Range Interpretation Comments Blood Urea Nitrogen (test code = 3094-0) 6 7-26 L [facility] CenterCreatinine2020-01-07 16:06:00* Test Item Value Reference Range Interpretation Comments Creatinine (test code = 2160-0) 0.78 0.57-1.11 [facility] CenterBUN/Creatinine Sqxib9588-30-35 16:06:00* Test Item Value Reference Range Interpretation Comments BUN/Creatinine Ratio (test code = 3097-3) 8 6-25 [facility] CenterEstimat Glomerular Filtration Rate 2019-03-15 16:06:00* Test Item Value Reference Range Interpretation Comments Estimat Glomerular Filtration Rate (test code = 846446234) > 60 >60 Ranges were taken from the National Kidney Disease Education Program and the [facility] literature.Reference ranges:60 or greater: Gcckaq72-73 ( for 3 consecutive months): Chronic kidney disease 15 or less: Kidney failureMethodist Mansfield Medical CenterGlucose Omkbz8978-54-64 16:06:00* Test Item Value Reference Range Interpretation Comments Glucose Level (test code = ANK4862) 205 74-118 H [facility] CenterCalcium Hdule9505-40-59 16:06:00* Test Item Value Reference Range Interpretation Comments Calcium Level (test code = 88165-2) 8.6 8.4-10.2 [facility] CenterTotal Xfngpjmpt7610-63-07 16:06:00* Test Item Value Reference Range Interpretation Comments Total Bilirubin (test code = 1975-2) 0.4 0.2-1.2 [facility] CenterAspartate Amino Transf (AST/SGOT) 2019-03-15 16:06:00* Test Item Value Reference Range Interpretation Comments Aspartate Amino Transf (AST/SGOT) (test code = Aspartate Amino Transf (AST/SGOT)) 24 5-34 [facility] CenterAlanine Aminotransferase (ALT/SGPT) 2019-03-15 16:06:00* Test Item Value Reference Range Interpretation Comments Alanine Aminotransferase (ALT/SGPT) (test code = 1742-6) 27 0-55 [facility] CenterTotal Boxcyxo2419-88-29 16:06:00* Test Item Value Reference Range Interpretation Comments Total Protein (test code = 2885-2) 6.6 6.5-8.1 [facility] CenterAlbumin2020-01-07 16:06:00* Test Item Value Reference Range Interpretation Comments Albumin (test code = 1751-7) 3.3 3.5-5.0 L [facility] CenterGlobulin2020-01-07 16:06:00* Test Item Value Reference Range Interpretation Comments Globulin (test code = 78848-4) 3.3 2.3-3.5 [facility] CenterAlbumin/Globulin Xlezh6038-34-85 16:06:00 * Test Item Value Reference Range Interpretation Comments Albumin/Globulin Ratio (test code = 1759-0) 1.0 0.8-2.0 [facility] CenterAlkaline Ursricqrtpa5924-05-41 16:06:00* Test Item Value Reference Range Interpretation Comments Alkaline Phosphatase (test code = 6768-6) 82 40-150 [facility] CenterLipase2020-01-07 16:06:00* Test Item Value Reference Range Interpretation Comments Lipase (test code = 3040-3) 37 8-78 [facility] CenterHuman Chorionic Gonadotropin, Qual 2019-03-15 16:01:00* Test Item Value Reference Range Interpretation Comments Human Chorionic Gonadotropin, Qual (test code = 2118-8) NEGATIVE NEGATIVE [facility] CenterWhite Blood Exran2224-35-13 15:44:00* Test Item Value Reference Range Interpretation Comments White Blood Count (test code = 6690-2) 5.37 4.8-10.8 [facility] CenterRed Blood Xmhte7049-42-54 15:44:00* Test Item Value Reference Range Interpretation Comments Red Blood Count (test code = 789-8) 4.63 3.6-5.1 [facility] CenterHemoglobin2020-01-07 15:44:00* Test Item Value Reference Range Interpretation Comments Hemoglobin (test code = 21555-4) 13.3 12.0-16.0 [facility] CenterHematocrit2020-01-07 15:44:00* Test Item Value Reference Range Interpretation Comments Hematocrit (test code = 4544-3) 40.7 34.2-44.1 [facility] CenterMean Corpuscular Abhdpf5697-20-45 15:44:00* Test Item Value Reference Range Interpretation Comments Mean Corpuscular Volume (test code = 787-2) 87.9 81-99 [facility] CenterMean Corpuscular Pxvuhflskg7308-62-88 15:44:00* Test Item Value Reference Range Interpretation Comments Mean Corpuscular Hemoglobin (test code = 785-6) 28.7 28-32 [facility] CenterMean Corpuscular Hemoglobin Concent 2019-03-15 15:44:00* Test Item Value Reference Range Interpretation Comments Mean Corpuscular Hemoglobin Concent (test code = 786-4) 32.7 31-35 [facility] CenterRed Cell Distribution Eelej5323-63-93 15:44:00* Test Item Value Reference Range Interpretation Comments Red Cell Distribution Width (test code = 82347-0) 14.5 11.7 -14.4 H [facility] CenterPlatelet Fwegr7873-04-76 15:44:00* Test Item Value Reference Range Interpretation Comments Platelet Count (test code = 777-3) 234 140-360 [facility] CenterNeutrophils (%) (Auto)2019-03-15 15:44:00 * Test Item Value Reference Range Interpretation Comments Neutrophils (%) (Auto) (test code = 07632-8) 49.9 38.7-80.0 [facility] CenterLymphocytes (%) (Auto)2019-03-15 15:44:00 * Test Item Value Reference Range Interpretation Comments Lymphocytes (%) (Auto) (test code = 736-9) 41.0 18.0-39.1 H [facility] CenterMonocytes (%) (Auto)2019-03-15 15:44:00* Test Item Value Reference Range Interpretation Comments Monocytes (%) (Auto) (test code = 5905-5) 6.5 4.4-11.3 [facility] CenterEosinophils (%) (Auto)2019-03-15 15:44:00 * Test Item Value Reference Range Interpretation Comments Eosinophils (%) (Auto) (test code = 713-8) 2.2 0.0-6.0 [facility] CenterBasophils (%) (Auto)2019-03-15 15:44:00* Test Item Value Reference Range Interpretation Comments Basophils (%) (Auto) (test code = 706-2) 0.2 0.0-1.0 [facility] CenterIM GRANULOCYTES %2019-03-15 15:44:00* Test Item Value Reference Range Interpretation Comments IM GRANULOCYTES % (test code = IM GRANULOCYTES %) 0.2 0.0- 1.0 [facility] CenterNeutrophils # (Auto)2019-03-15 15:44:00* Test Item Value Reference Range Interpretation Comments Neutrophils # (Auto) (test code = 751-8) 2.7 2.1-6.9 [facility] CenterLymphocytes # (Auto)2019-03-15 15:44:00* Test Item Value Reference Range Interpretation Comments Lymphocytes # (Auto) (test code = 85974-2) 2.2 1.0-3.2 [facility] CenterMonocytes # (Auto)2019-03-15 15:44:00* Test Item Value Reference Range Interpretation Comments Monocytes # (Auto) (test code = 742-7) 0.4 0.2-0.8 [facility] CenterEosinophils # (Auto)2019-03-15 15:44:00* Test Item Value Reference Range Interpretation Comments Eosinophils # (Auto) (test code = 711-2) 0.1 0.0-0.4 [facility] CenterBasophils # (Auto)2019-03-15 15:44:00* Test Item Value Reference Range Interpretation Comments Basophils # (Auto) (test code = 704-7) 0.0 0.0-0.1 [facility] CenterAbsolute Immature Granulocyte (auto 2019-03-15 15:44:00* Test Item Value Reference Range Interpretation Comments Absolute Immature Granulocyte (auto (evelia t code = Absolute Immature Granulocyte (auto) 0.01 0-0.1 [facility] CenterUS ABDOMEN UROKEDFV9474-55-66 15:14:[address] [address] Patient Name: IVETTE DYSON MR #: [id number] : [birth year] Age/Sex: 48/F Req #: [id number] Adm Physician: Ordered by: MARCELLA KAUFFMAN NP Report #: [id number] Location: ER Room/Bed: Procedure: [id number] US/US ABDOMEN COMPLETE Exam Date: 03/15/19 Exam [...] 3:17 PM Dictated By: SIMEON MALIN MD 496 Transcr ibed By: KAREN on 03/15/19 4187 COPY TO: MARCELLA KAUFFMAN DATA WAREHOUSE DEVELOPER Blood leukocytes automated count (number/volume)2019-03-15 13:07:00* Test Item Value Reference Range Interpretation Comments White Blood Count (test code = 6690-2) 5.37 4.8-10.8 [facility] CenterBlood erythrocytes automated count (number/volume)2019-03-15 13:07:00* Test Item Value Reference Range Interpretation Comments Red Blood Count (test code = 789-8) 4.63 3.6-5.1 [facility] CenterBlood hemoglobin measurement (moles/volume)2019-03-15 13:07:00* Test Item Value Reference Range Interpretation Comments Hemoglobin (test code = 83303-8) 13.3 12.0-16.0 [facility] CenterAutomated blood hematocrit (volume fraction)2019-03-15 13:07:00* Test Item Value Reference Range Interpretation Comments Hematocrit (test code = 4544-3) 40.7 34.2-44.1 [facility] CenterAutomated erythrocyte mean corpuscular iupgnn6136-05-76 13:07:00* Test Item Value Reference Range Interpretation Comments Mean Corpuscular Volume (test code = 787-2) 87.9 81-99 [facility] CenterAutomated erythrocyte mean corpuscular hemoglobin (mass per erythrocyte)2019-03-15 13:07:00* Test Item Value Reference Range Interpretation Comments Mean Corpuscular Hemoglobin (test code = 785-6) 28.7 28-32 [facility] CenterAutomated erythrocyte mean corpuscular hemoglobin concentration measurement (mass/volume)2019-03-15 13:07:00* Test Item Value Reference Range Interpretation Comments Mean Corpuscular Hemoglobin Concent (test code = 786-4) 32.7 31-35 [facility] CenterRDW MogVb-Zyu7658-99-07 13:07:00* Test Item Value Reference Range Interpretation Comments Red Cell Distribution Width (test code = 79784-3) 14.5 11.7 -14.4 [facility] CenterAutomated blood platelet count (count/volume)2019-03-15 13:07:00* Test Item Value Reference Range Interpretation Comments Platelet Count (test code = 777-3) 234 140-360 [facility] CenterAutcone health women's hospitaled blood segmented neutrophil count as percentage of total gjfvstratc9672-65-51 13:07:00* Test Item Value Reference Range Interpretation Comments Neutrophils (%) (Auto) (test code = 87800-4) 49.9 38.7-80.0 [facility] CenterAutomated blood lymphocyte count as percentage ot total ojrvbovkcj5867-18-57 13:07:00* Test Item Value Reference Range Interpretation Comments Lymphocytes (%) (Auto) (test code = 736-9) 41.0 18.0-39.1 [facility] CenterAutomated blood monocyte count as percentage of total nvpawertjq5059-24-81 13:07:00* Test Item Value Reference Range Interpretation Comments Monocytes (%) (Auto) (test code = 5905-5) 6.5 4.4-11.3 [facility] CenterAutomated blood eosinophil count as percentage of total meklxradru4587-21-91 13:07:00* Test Item Value Reference Range Interpretation Comments Eosinophils (%) (Auto) (test code = 713-8) 2.2 0.0-6.0 [facility] CenterAutomated blood basophil count as percentage of total gstyykivde5701-34-32 13:07:00* Test Item Value Reference Range Interpretation Comments Basophils (%) (Auto) (test code = 706-2) 0.2 0.0-1.0 [facility] CenterFluoroscopic procedure less than one hour mvmyblud8615-58-23 13:07:00* Test Item Value Reference Range Interpretation Comments IM GRANULOCYTES % (test code = IM GRANULOCYTES %) 0.2 0.0- 1.0 [facility] CenterAutomated blood neutrophil count 2019-03-15 13:07:00* Test Item Value Reference Range Interpretation Comments Neutrophils # (Auto) (test code = 751-8) 2.7 2.1-6.9 [facility] CenterBlood lymphocytes count (number/volume) 2019-03-15 13:07:00* Test Item Value Reference Range Interpretation Comments Lymphocytes # (Auto) (test code = 90340-5) 2.2 1.0-3.2 [facility] CenterBlood monocytes automated count (number/volume)2019-03-15 13:07:00* Test Item Value Reference Range Interpretation Comments Monocytes # (Auto) (test code = 742-7) 0.4 0.2-0.8 [facility] CenterAutomated blood eosinophil count 2019-03-15 13:07:00* Test Item Value Reference Range Interpretation Comments Eosinophils # (Auto) (test code = 711-2) 0.1 0.0-0.4 [facility] CenterAutomated blood basophil count (count/volume)2019-03-15 13:07:00* Test Item Value Reference Range Interpretation Comments Basophils # (Auto) (test code = 704-7) 0.0 0.0-0.1 [facility] CenterFluoroscopic procedure less than one hour vtmzdvcz5607-64-67 13:07:00* Test Item Value Reference Range Interpretation Comments Absolute Immature Granulocyte (auto (evelia t code = Absolute Immature Granulocyte (auto) 0.01 0-0.1 [facility] plasma sodium measurement (moles/volume)2019-03-15 13:07:00* Test Item Value Reference Range Interpretation Comments Sodium Level (test code = 2951-2) 136 136-145 [facility]um or plasma potassium measurement (moles/volume)2019-03-15 13:07:00* Test Item Value Reference Range Interpretation Comments Potassium Level (test code = 2823-3) 3.8 3.5-5.1 [facility]asterum or plasma chloride measurement (moles/volume)2019-03-15 13:07:00* Test Item Value Reference Range Interpretation Comments Chloride Level (test code = 2075-0) 101 98-107 [facility]asterum or plasma carbon dioxide, total measurement (moles/volume)2019-03-15 13:07:00* Test Item Value Reference Range Interpretation Comments Carbon Dioxide Level (test code = 2028-9) 26 22-29 [facility]asterum or plasma anion mnf1639-66-57 13:07:00* Test Item Value Reference Range Interpretation Comments Anion Gap (test code = 25631-0) 12.8 8-16 [facility]asterum or plasma urea nitrogen measurement (mass/volume)2019-03-15 13:07:00* Test Item Value Reference Range Interpretation Comments Blood Urea Nitrogen (test code = 3094-0) 6 7-26 [facility]um or plasma creatinine measurement (mass/volume)2019-03-15 13:07:00* Test Item Value Reference Range Interpretation Comments Creatinine (test code = 2160-0) 0.78 0.57-1.11 [facility]asterum or plasma urea nitrogen/creatinine mass wnyou1898-39-62 13:07:00* Test Item Value Reference Range Interpretation Comments BUN/Creatinine Ratio (test code = 3097-3) 8 6-25 [facility] CenterEstimated glomerular filtration rate (GFR) ceysbramtonfb4469-37-57 13:07:00* Test Item Value Reference Range Interpretation Comments Estimat Glomerular Filtration Rate (test code = 581053997) > 60 >60 Ranges were taken from the National Kidney Disease Education Program and the [facility] Kidney Foundation literature.Reference ranges:60 or greater: Jeqqra46-07 ( for 3 consecutive months): Chronic kidney disease 15 or less: Kidney failureMethodist Mansfield Medical CenterGlucose dprdiqbhzrl6597-28-17 13:07:00* Test Item Value Reference Range Interpretation Comments Glucose Level (test code = USC6691) 205 74-118 [facility]asterum or plasma calcium measurement (mass/volume)2019-03-15 13:07:00* Test Item Value Reference Range Interpretation Comments Calcium Level (test code = 43516-5) 8.6 8.4-10.2 [facility]um or plasma total bilirubin measurement (mass/volume)2019-03-15 13:07:00* Test Item Value Reference Range Interpretation Comments Total Bilirubin (test code = 1975-2) 0.4 0.2-1.2 [facility] CenterFluoroscopic procedure less than one hour hrfceors0099-47-63 13:07:00* Test Item Value Reference Range Interpretation Comments Aspartate Amino Transf (AST/SGOT) (test code = Aspartate Amino Transf (AST/SGOT)) 24 5-34 [facility]asterum or plasma alanine aminotransferase measurement (enzymatic activity/volume)2019-03-15 13:07:00* Test Item Value Reference Range Interpretation Comments Alanine Aminotransferase (ALT/SGPT) (test code = 1742-6) 27 0-55 [facility]asterum or plasma protein measurement (mass/volume)2019-03-15 13:07:00* Test Item Value Reference Range Interpretation Comments Total Protein (test code = 2885-2) 6.6 6.5-8.1 [facility] or plasma albumin measurement (mass/volume)2019-03-15 13:07:00* Test Item Value Reference Range Interpretation Comments Albumin (test code = 1751-7) 3.3 3.5-5.0 [facility] CenterPlasma globulin measurement (mass/volume) 2019-03-15 13:07:00* Test Item Value Reference Range Interpretation Comments Globulin (test code = 47295-6) 3.3 2.3-3.5 [facility] or plasma albumin/globulin mass mxxco3868-18-73 13:07:00* Test Item Value Reference Range Interpretation Comments Albumin/Globulin Ratio (test code = 1759-0) 1.0 0.8-2.0 [facility]um or plasma alkaline phosphatase measurement (enzymatic activity/volume)2019-03-15 13:07:00* Test Item Value Reference Range Interpretation Comments Alkaline Phosphatase (test code = 6768-6) 82 40-150 [facility]um or plasma lipase measurement (enzymatic activity/volume)2019-03-15 13:07:00* Test Item Value Reference Range Interpretation Comments Lipase (test code = 3040-3) 37 8-78 [facility]asterum or plasma choriogonadotropin ( test) ypsuwdyhi0472-38-15 13:07:00* Test Item Value Reference Range Interpretation Comments Human Chorionic Gonadotropin, Qual (test code = 2118-8) NEGATIVE NEGATIVE [facility] CenterBacterial urine rnfmxts7791-18-18 13:07:00* Test Item Value Reference Range Interpretation Comments Urine Culture (test code = 630-4) KLEBSIELLA PNEUMONIAE-ESBL [facility] CenterBedside Xmvarqi1121-84-69 16:08:00* Test Item Value Reference Range Interpretation Comments Bedside Glucose (test code = 13019-5) 91 70-120 Meter ID: [id number] Mansfield Medical CenterUrine RDJ8388-13-10 20:54:00* Test Item Value Reference Range Interpretation Comments Urine WBC (test code = 5821-4) NONE 0-5 [facility] CenterUrine LEK7732-78-82 20:54:00* Test Item Value Reference Range Interpretation Comments Urine RBC (test code = 83898-6) 0-5 0-5 [facility] CenterUrine Woyswexg1657-51-18 20:54:00* Test Item Value Reference Range Interpretation Comments Urine Bacteria (test code = 96241-1) NONE NONE [facility] CenterUrine Epithelial Btync3022-48-02 20:54:00 * Test Item Value Reference Range Interpretation Comments Urine Epithelial Cells (test code = 37890-3) FEW NONE [facility] CenterUrine PWO5564-10-78 20:54:00* Test Item Value Reference Range Interpretation Comments Urine WBC (test code = 5821-4) NONE 0-5 [facility] CenterUrine LAO2161-43-69 20:54:00* Test Item Value Reference Range Interpretation Comments Urine RBC (test code = 83801-3) 0-5 0-5 [facility] CenterUrine Nvsmpicw6364-18-21 20:54:00* Test Item Value Reference Range Interpretation Comments Urine Bacteria (test code = 93804-0) NONE NONE [facility] CenterUrine Epithelial Vlbns5301-96-53 20:54:00 * Test Item Value Reference Range Interpretation Comments Urine Epithelial Cells (test code = 18488-9) FEW NONE [facility] CenterCT ABDOMEN/PELVIS Y4763-24-33 20:46:00 [facility] [address] [place] [address] Patient Name: IVETTE DYSON MR #: [id number] : [birth year] Age/Sex: 48/F Req #: [id number] Adm Physician: Ordered by: EDISON CANAS DATA WAREHOUSE DEVELOPER Report #: [id number] Location: ER Room/Bed: Procedure: [id number] CT /CT ABDOMEN/PELVIS W Exam Date: 08/06/18 Exam Time: 1945 REPORT STATUS: Signed EXAM: CT Abdomen and Pelvis WITH contrast INDICATION: ABD BLOATING AND P AIN [id number] COMPARISON: Gallbladder ultrasound 05/15/2017 TECHNIQUE: Abdomen [...] 48 COPY TO: EDISON CANAS NP Urine Hcrpe2618-75-76 20:35:00* Test Item Value Reference Range Interpretation Comments Urine Color (test code = 5778-6) YELLOW [facility]LLOW [facility] Pyfdoso5668-78-70 20:35:00* Test Item Value Reference Range Interpretation Comments Urine Clarity (test code = 11597-6) CLEAR CLEAR [facility] Specific Uvjpehr4458-08-10 20:35:00 * Test Item Value Reference Range Interpretation Comments Urine Specific [place] (test code = 5811-5) 1.010 1.010-1.02 5 [facility] CenterU[facility] cK7798-39-27 20:35:00* Test Item Value Reference Range Interpretation Comments Urine pH (test code = 04435-2) 7.5 5-7 [facility] CenterU[facility] Leukocyte Vvgniquc3090-60-91 20:35:00* Test Item Value Reference Range Interpretation Comments Urine Leukocyte Esterase (test code = 11892-2) NEGATIVE NEGATIV E [facility] Tysdyaz8624-47-99 20:35:00* Test Item Value Reference Range Interpretation Comments Urine Nitrite (test code = 39508-2) NEGATIVE NEGATIVE [facility] Gbpjlok6744-40-90 20:35:00* Test Item Value Reference Range Interpretation Comments Urine Protein (test code = 04532-7) NEGATIVE NEGATIVE [facility] Glucose (UA)2018-08-06 20:35:00* Test Item Value Reference Range Interpretation Comments Urine Glucose (UA) (test code = 60556-1) NEGATIVE NEGATIVE [facility] Osrdakl5822-39-37 20:35:00* Test Item Value Reference Range Interpretation Comments Urine Ketones (test code = 34465-2) NEGATIVE NEGATIVE [facility] Ajnzrmxphopu5969-89-01 20:35:00* Test Item Value Reference Range Interpretation Comments Urine Urobilinogen (test code = 33321-1) 0.2 0.2-1 [facility] Ziawhunwx0746-45-65 20:35:00* Test Item Value Reference Range Interpretation Comments Urine Bilirubin (test code = 1977-8) NEGATIVE NEGATIVE [facility] Mazmo7111-50-56 20:35:00* Test Item Value Reference Range Interpretation Comments Urine Blood (test code = 83634-6) MODERATE NEGATIVE [facility] Pkeqo2794-84-84 20:35:00* Test Item Value Reference Range Interpretation Comments Urine Color (test code = 5778-6) YELLOW YELLOW [facility] CenterU[facility] Saydkja2463-96-60 20:35:00* Test Item Value Reference Range Interpretation Comments Urine Clarity (test code = 71755-4) CLEAR CLEAR [facility] Specific Luninyi6606-03-60 20:35:00 * Test Item Value Reference Range Interpretation Comments Urine Specific [place] (test code = 5811-5) 1.010 1.010-1.02 5 [facility] CenterU[facility] sH6282-01-68 20:35:00* Test Item Value Reference Range Interpretation Comments Urine pH (test code = 69918-9) 7.5 5-7 [facility] CenterU[facility] Leukocyte Uduptugf6402-77-17 20:35:00* Test Item Value Reference Range Interpretation Comments Urine Leukocyte Esterase (test code = 22840-4) NEGATIVE NEGATIV E [facility] Rvowcbk3536-75-70 20:35:00* Test Item Value Reference Range Interpretation Comments Urine Nitrite (test code = 81380-6) NEGATIVE NEGATIVE [facility] CenterU[facility] Uswjzou3443-28-95 20:35:00* Test Item Value Reference Range Interpretation Comments Urine Protein (test code = 05245-4) NEGATIVE NEGATIVE [facility] CenterU[facility] Glucose (UA)2018-08-06 20:35:00* Test Item Value Reference Range Interpretation Comments Urine Glucose (UA) (test code = 50146-3) NEGATIVE NEGATIVE [facility] CenterU[facility] Lraleuh5695-99-67 20:35:00* Test Item Value Reference Range Interpretation Comments Urine Ketones (test code = 38004-5) NEGATIVE NEGATIVE [facility] Qdcshwzrcewv7213-84-93 20:35:00* Test Item Value Reference Range Interpretation Comments Urine Urobilinogen (test code = 67859-7) 0.2 0.2-1 [facility] CenterU[facility] Qpffourad5672-10-06 20:35:00* Test Item Value Reference Range Interpretation Comments Urine Bilirubin (test code = 1977-8) NEGATIVE NEGATIVE [facility] CenterU[facility] Nsgfg0966-55-18 20:35:00* Test Item Value Reference Range Interpretation Comments Urine Blood (test code = 66305-0) MODERATE NEGATIVE [facility] Xrnmh8784-69-36 19:11:00* Test Item Value Reference Range Interpretation Comments Sodium Level (test code = 2951-2) 136 136-145 [facility] CenterPotassium Snwpi2838-22-40 19:11:00* Test Item Value Reference Range Interpretation Comments Potassium Level (test code = 2823-3) 3.7 3.5-5.1 [facility] CenterChloride Kaorj5367-93-24 19:11:00* Test Item Value Reference Range Interpretation Comments Chloride Level (test code = 2075-0) 102 98-107 [facility] CenterCarbon Dioxide Xurow8318-08-43 19:11:00* Test Item Value Reference Range Interpretation Comments Carbon Dioxide Level (test code = 2028-9) 27 22-29 [facility] CenterAnion Rak2227-56-52 19:11:00* Test Item Value Reference Range Interpretation Comments Anion Gap (test code = 87377-0) 10.7 8-16 [facility] CenterBlood Urea Tgjslhqi0753-83-77 19:11:00* Test Item Value Reference Range Interpretation Comments Blood Urea Nitrogen (test code = 3094-0) 7 7-26 [facility] CenterCreatinine2019-05-31 19:11:00* Test Item Value Reference Range Interpretation Comments Creatinine (test code = 2160-0) 0.77 0.57-1.11 [facility] CenterBUN/Creatinine Vswkm3312-36-07 19:11:00* Test Item Value Reference Range Interpretation Comments BUN/Creatinine Ratio (test code = 3097-3) 9 6-25 [facility] CenterEstimat Glomerular Filtration Rate 2018-08-06 19:11:00* Test Item Value Reference Range Interpretation Comments Estimat Glomerular Filtration Rate (test code = 961699013) > 60 >60 Ranges were taken from the National Kidney Disease Education Program and the [facility] [employer] literature.Reference ranges:60 or greater: Eegvdx77-61 ( for 3 consecutive months): Chronic kidney disease 15 or less: Kidney failureMethodist Mansfield Medical CenterGlucose Zmuol2102-17-84 19:11:00* Test Item Value Reference Range Interpretation Comments Glucose Level (test code = SCD5157) 193 74-118 H [facility] CenterCalcium Cuvjo8770-25-71 19:11:00* Test Item Value Reference Range Interpretation Comments Calcium Level (test code = 79997-5) 8.8 8.4-10.2 [facility] CenterTotal Zegqtkujd1156-01-55 19:11:00* Test Item Value Reference Range Interpretation Comments Total Bilirubin (test code = 1975-2) 0.3 0.2-1.2 [facility] CenterAspartate Amino Transf (AST/SGOT) 2018-08-06 19:11:00* Test Item Value Reference Range Interpretation Comments Aspartate Amino Transf (AST/SGOT) (test code = Aspartate Amino Transf (AST/SGOT)) 31 5-34 [facility] CenterAlanine Aminotransferase (ALT/SGPT) 2018-08-06 19:11:00* Test Item Value Reference Range Interpretation Comments Alanine Aminotransferase (ALT/SGPT) (test code = 1742-6) 43 0-55 [facility] Ypqzlty4817-69-18 19:11:00* Test Item Value Reference Range Interpretation Comments Total Protein (test code = 2885-2) 6.8 6.5-8.1 [facility] CenterAlbumin2019-05-31 19:11:00* Test Item Value Reference Range Interpretation Comments Albumin (test code = 1751-7) 3.4 3.5-5.0 L [facility] CenterGlobulin2019-05-31 19:11:00* Test Item Value Reference Range Interpretation Comments Globulin (test code = 63815-6) 3.4 2.3-3.5 [facility] CenterAlbumin/Globulin Cblmd5163-65-50 19:11:00 * Test Item Value Reference Range Interpretation Comments Albumin/Globulin Ratio (test code = 1759-0) 1.0 0.8-2.0 [facility] CenterAlkaline Wehdlvibauu7987-90-88 19:11:00* Test Item Value Reference Range Interpretation Comments Alkaline Phosphatase (test code = 6768-6) 89 40-150 [facility] CenterWhite Blood Gqwpn6408-75-90 18:40:00* Test Item Value Reference Range Interpretation Comments White Blood Count (test code = 6690-2) 7.82 4.8-10.8 [facility] CenterRed Blood Zarqt4064-08-02 18:40:00* Test Item Value Reference Range Interpretation Comments Red Blood Count (test code = 789-8) 4.54 3.6-5.1 [facility] CenterHemoglobin2019-05-31 18:40:00* Test Item Value Reference Range Interpretation Comments Hemoglobin (test code = 15236-4) 13.0 12.0-16.0 [facility] CenterHematocrit2019-05-31 18:40:00* Test Item Value Reference Range Interpretation Comments Hematocrit (test code = 4544-3) 38.8 34.2-44.1 [facility] CenterMean Corpuscular Qeniob2817-90-51 18:40:00* Test Item Value Reference Range Interpretation Comments Mean Corpuscular Volume (test code = 787-2) 85.5 81-99 [facility] CenterMean Corpuscular Odvudrwqyw4954-96-69 18:40:00* Test Item Value Reference Range Interpretation Comments Mean Corpuscular Hemoglobin (test code = 785-6) 28.6 28-32 [facility] CenterMean Corpuscular Hemoglobin Concent 2018-08-06 18:40:00* Test Item Value Reference Range Interpretation Comments Mean Corpuscular Hemoglobin Concent (test code = 786-4) 33.5 31-35 [facility] CenterRed Cell Distribution Vhvsd3012-24-74 18:40:00* Test Item Value Reference Range Interpretation Comments Red Cell Distribution Width (test code = 69877-2) 16.2 11.7 -14.4 H [facility] CenterPlatelet Pcxtk2442-65-07 18:40:00* Test Item Value Reference Range Interpretation Comments Platelet Count (test code = 777-3) 284 140-360 [facility] CenterNeutrophils (%) (Auto)2018-08-06 18:40:00 * Test Item Value Reference Range Interpretation Comments Neutrophils (%) (Auto) (test code = 00358-5) 65.5 38.7-80.0 [facility] CenterLymphocytes (%) (Auto)2018-08-06 18:40:00 * Test Item Value Reference Range Interpretation Comments Lymphocytes (%) (Auto) (test code = 736-9) 25.6 18.0-39.1 [facility] CenterMonocytes (%) (Auto)2018-08-06 18:40:00* Test Item Value Reference Range Interpretation Comments Monocytes (%) (Auto) (test code = 5905-5) 6.6 4.4-11.3 [facility] CenterEosinophils (%) (Auto)2018-08-06 18:40:00 * Test Item Value Reference Range Interpretation Comments Eosinophils (%) (Auto) (test code = 713-8) 1.3 0.0-6.0 [facility] CenterBasophils (%) (Auto)2018-08-06 18:40:00* Test Item Value Reference Range Interpretation Comments Basophils (%) (Auto) (test code = 706-2) 0.5 0.0-1.0 [facility] CenterIM GRANULOCYTES %2018-08-06 18:40:00* Test Item Value Reference Range Interpretation Comments IM GRANULOCYTES % (test code = IM GRANULOCYTES %) 0.5 0.0- 1.0 [facility] CenterNeutrophils # (Auto)2018-08-06 18:40:00* Test Item Value Reference Range Interpretation Comments Neutrophils # (Auto) (test code = 751-8) 5.1 2.1-6.9 [facility] CenterLymphocytes # (Auto)2018-08-06 18:40:00* Test Item Value Reference Range Interpretation Comments Lymphocytes # (Auto) (test code = 29213-4) 2.0 1.0-3.2 [facility] CenterMonocytes # (Auto)2018-08-06 18:40:00* Test Item Value Reference Range Interpretation Comments Monocytes # (Auto) (test code = 742-7) 0.5 0.2-0.8 [facility] CenterEosinophils # (Auto)2018-08-06 18:40:00* Test Item Value Reference Range Interpretation Comments Eosinophils # (Auto) (test code = 711-2) 0.1 0.0-0.4 [facility] CenterBasophils # (Auto)2018-08-06 18:40:00* Test Item Value Reference Range Interpretation Comments Basophils # (Auto) (test code = 704-7) 0.0 0.0-0.1 [facility] CenterAbsolute Immature Granulocyte (auto 2018-08-06 18:40:00* Test Item Value Reference Range Interpretation Comments Absolute Immature Granulocyte (auto (evelia t code = Absolute Immature Granulocyte (auto) 0.04 0-0.1 [facility] CenterCHEST SINGLE (NOT PORTABLE)2018-06-25 18:21:00 [place] [address] Patient Name: IVETTE DYSON MR #: [id number] : 1970 Age/Sex: 48/F Req #: [id number] Adm Physician: Ordered by: SAMIR EMMANUEL MD Report #: [id number] Location: ER Room/Bed: Procedure: [id number] DX/CHEST SINGLE (NOT PORTABLE) Exam Date: 06/25/18 E xam Time: 1111 REPORT STATUS: Sonali d Examination: Single AP [...] 06/25/181821 COPY TO: SAMIR EMMANUEL MD Bedside Pjdhsjc2461-69-68 11:23:00* Test Item Value Reference Range Interpretation Comments Bedside Glucose (test code = 95200-0) 102 70-120 Meter ID: [id number] [facility]Bedside Glucose 2017-12-02 11:23:00* Test Item Value Reference Range Interpretation Comments Bedside Glucose (test code = 08600-1) 102 70-120 Meter ID: [id number] [facility] HospitalUrine Test 2017-12-02 11:12:00* Test Item Value Reference Range Interpretation Comments Urine Test (test code = 2106-3) NEGATIVE NEGATIVE [facility] CenterUrine Dqtj5713-99-82 11:12:00* Test Item Value Reference Range Interpretation Comments Urine Test (test code = 2106-3) NEGATIVE NEGATIVE [facility] CenterUrine LHZ3899-46-81 22:05:00* Test Item Value Reference Range Interpretation Comments Urine WBC (test code = 5821-4) NONE 0-5 [facility] CenterUrine XDW9532-48-65 22:05:00* Test Item Value Reference Range Interpretation Comments Urine RBC (test code = 62383-9) NONE 0-5 [facility] CenterUrine Jscktltw9040-27-08 22:05:00* Test Item Value Reference Range Interpretation Comments Urine Bacteria (test code = 40982-9) NONE NONE [facility] CenterUrine Epithelial Hzwmy2629-01-87 22:05:00 * Test Item Value Reference Range Interpretation Comments Urine Epithelial Cells (test code = 09430-5) NONE NONE [facility] Madjr0716-89-30 22:04:00* Test Item Value Reference Range Interpretation Comments Sodium Level (test code = 2951-2) 139 136-145 [facility] CenterPotassium Lkkjf3181-92-09 22:04:00* Test Item Value Reference Range Interpretation Comments Potassium Level (test code = 2823-3) 4.0 3.5-5.1 [facility] CenterChloride Cajmw3407-66-41 22:04:00* Test Item Value Reference Range Interpretation Comments Chloride Level (test code = 2075-0) 104 98-107 [facility] CenterCarbon Dioxide Ganrs2986-02-54 22:04:00* Test Item Value Reference Range Interpretation Comments Carbon Dioxide Level (test code = 2028-9) 26 22-29 [facility] CenterAnion Svo4946-85-63 22:04:00* Test Item Value Reference Range Interpretation Comments Anion Gap (test code = 12096-9) 13.0 8-16 [facility] CenterBlood Urea Upubbfne9921-62-50 22:04:00* Test Item Value Reference Range Interpretation Comments Blood Urea Nitrogen (test code = 3094-0) 6 7-26 L [facility] CenterCreatinine2018-03-09 22:04:00* Test Item Value Reference Range Interpretation Comments Creatinine (test code = 2160-0) 0.73 0.57-1.11 [facility] CenterBUN/Creatinine Uyznr8724-00-35 22:04:00* Test Item Value Reference Range Interpretation Comments BUN/Creatinine Ratio (test code = 3097-3) 8 6-25 [facility] CenterEstimat Glomerular Filtration Rate 2017-05-15 22:04:00* Test Item Value Reference Range Interpretation Comments Estimat Glomerular Filtration Rate (test code = 57395-3) 60- >60 Ranges were taken from the National Kidney Disease Education Program and the [facility] [employer] literature.Reference ranges:60 or greater: Rniuyw54-48 ( for 3 consecutive months): Chronic kidney disease 15 or less: Kidney failureMethodist [facility]field Medical CenterGlucose Vqtss0983-59-18 22:04:00* Test Item Value Reference Range Interpretation Comments Glucose Level (test code = LDY0051) 101 74-118 [facility] CenterCalcium Zvypq9832-85-63 22:04:00* Test Item Value Reference Range Interpretation Comments Calcium Level (test code = 52963-9) 8.8 8.4-10.2 [facility] CenterTotal Klzlrqsjy7599-13-57 22:04:00* Test Item Value Reference Range Interpretation Comments Total Bilirubin (test code = 1975-2) -0.3 0.2-1.2 [facility] CenterAspartate Amino Transf (AST/SGOT) 2017-05-15 22:04:00* Test Item Value Reference Range Interpretation Comments Aspartate Amino Transf (AST/SGOT) (test code = Aspartate Amino Transf (AST/SGOT)) 27 5-34 [facility] CenterAlanine Aminotransferase (ALT/SGPT) 2017-05-15 22:04:00* Test Item Value Reference Range Interpretation Comments Alanine Aminotransferase (ALT/SGPT) (test code = 1742-6) 31 0-55 [facility] CenterTotal Szwlfbb1053-38-53 22:04:00* Test Item Value Reference Range Interpretation Comments Total Protein (test code = 2885-2) 8.0 6.5-8.1 [facility] CenterAlbumin2018-03-09 22:04:00* Test Item Value Reference Range Interpretation Comments Albumin (test code = 1751-7) 3.9 3.5-5.0 [facility] CenterGlobulin2018-03-09 22:04:00* Test Item Value Reference Range Interpretation Comments Globulin (test code = 28298-5) 4.1 2.3-3.5 H [facility] CenterAlbumin/Globulin Jxjaw0431-51-17 22:04:00 * Test Item Value Reference Range Interpretation Comments Albumin/Globulin Ratio (test code = 1759-0) 1.0 0.8-2.0 [facility] CenterAlkaline Wqvwkywqnqa9424-97-65 22:04:00* Test Item Value Reference Range Interpretation Comments Alkaline Phosphatase (test code = 6768-6) 88 40-150 [facility] CenterAmylase Cbgve9364-94-38 22:04:00* Test Item Value Reference Range Interpretation Comments Amylase Level (test code = 1798-8) 61 25-125 [facility] CenterLipase2018-03-09 22:04:00* Test Item Value Reference Range Interpretation Comments Lipase (test code = 3040-3) 28 8-78 [facility] CenterUrine Tucfm6773-32-59 21:50:00* Test Item Value Reference Range Interpretation Comments Urine Color (test code = 5778-6) YELLOW YELLOW [facility] CenterUrine Psyockl8573-56-43 21:50:00* Test Item Value Reference Range Interpretation Comments Urine Clarity (test code = 90472-8) CLEAR CLEAR [facility] CenterUrine Specific Mgibibw6959-13-29 21:50:00 * Test Item Value Reference Range Interpretation Comments Urine Specific [place] (test code = 5811-5) 1.010 1.010-1.02 5 [facility] CenterUrine jD6062-73-92 21:50:00* Test Item Value Reference Range Interpretation Comments Urine pH (test code = 40793-7) 6 5-7 [facility] CenterUrine Leukocyte Hikexwvc2807-47-49 21:50:00* Test Item Value Reference Range Interpretation Comments Urine Leukocyte Esterase (test code = 5799-2) NEGATIVE NEGATIVE [facility] CenterUrine Cdxqpzl4579-86-26 21:50:00* Test Item Value Reference Range Interpretation Comments Urine Nitrite (test code = 52437-9) NEGATIVE NEGATIVE [facility] CenterUrine Ywyacvv3594-62-20 21:50:00* Test Item Value Reference Range Interpretation Comments Urine Protein (test code = 5804-0) NEGATIVE NEGATIVE [facility] CenterUrine Glucose (UA)2017-05-15 21:50:00* Test Item Value Reference Range Interpretation Comments Urine Glucose (UA) (test code = 2349-9) NEGATIVE NEGATIVE [facility] CenterUrine Eorvgnx9453-15-17 21:50:00* Test Item Value Reference Range Interpretation Comments Urine Ketones (test code = 61423-3) NEGATIVE NEGATIVE [facility] CenterUrine Enafzdikhnzx2604-62-81 21:50:00* Test Item Value Reference Range Interpretation Comments Urine Urobilinogen (test code = 47627-7) 0.2 0.2-1 [facility] CenterUrine Xnpctowhk7418-27-77 21:50:00* Test Item Value Reference Range Interpretation Comments Urine Bilirubin (test code = 1978-6) NEGATIVE NEGATIVE [facility] CenterUrine Nlkpz5516-68-68 21:50:00* Test Item Value Reference Range Interpretation Comments Urine Blood (test code = 74821-7) NEGATIVE NEGATIVE [facility] CenterWhite Blood Yxsjt7178-65-61 21:48:00* Test Item Value Reference Range Interpretation Comments White Blood Count (test code = 6690-2) 8.57 4.8-10.8 [facility] CenterRed Blood Kbjei4583-08-05 21:48:00* Test Item Value Reference Range Interpretation Comments Red Blood Count (test code = 789-8) 4.42 3.6-5.1 [facility] CenterHemoglobin2018-03-09 21:48:00* Test Item Value Reference Range Interpretation Comments Hemoglobin (test code = 73767-6) 12.6 12.0-16.0 [facility] CenterHematocrit2018-03-09 21:48:00* Test Item Value Reference Range Interpretation Comments Hematocrit (test code = 4544-3) 38.0 34.2-44.1 [facility] CenterMean Corpuscular Itnlwn1259-97-81 21:48:00* Test Item Value Reference Range Interpretation Comments Mean Corpuscular Volume (test code = 787-2) 86.0 81-99 [facility] CenterMean Corpuscular Ezxuvzlnka4250-00-40 21:48:00* Test Item Value Reference Range Interpretation Comments Mean Corpuscular Hemoglobin (test code = 785-6) 28.5 28-32 [facility] CenterMean Corpuscular Hemoglobin Concent 2017-05-15 21:48:00* Test Item Value Reference Range Interpretation Comments Mean Corpuscular Hemoglobin Concent (test code = 786-4) 33.2 31-35 [facility] CenterRed Cell Distribution Klbbp2204-36-31 21:48:00* Test Item Value Reference Range Interpretation Comments Red Cell Distribution Width (test code = 01010-6) 13.8 11.7 -14.4 [facility] CenterPlatelet Nxbyk6445-60-75 21:48:00* Test Item Value Reference Range Interpretation Comments Platelet Count (test code = 777-3) 283 140-360 [facility] CenterNeutrophils (%) (Auto)2017-05-15 21:48:00 * Test Item Value Reference Range Interpretation Comments Neutrophils (%) (Auto) (test code = 15675-9) 55.6 38.7-80.0 [facility] CenterLymphocytes (%) (Auto)2017-05-15 21:48:00 * Test Item Value Reference Range Interpretation Comments Lymphocytes (%) (Auto) (test code = 736-9) 34.0 18.0-39.1 [facility] CenterMonocytes (%) (Auto)2017-05-15 21:48:00* Test Item Value Reference Range Interpretation Comments Monocytes (%) (Auto) (test code = 5905-5) 8.3 4.4-11.3 [facility] CenterEosinophils (%) (Auto)2017-05-15 21:48:00 * Test Item Value Reference Range Interpretation Comments Eosinophils (%) (Auto) (test code = 713-8) 1.2 0.0-6.0 [facility] CenterBasophils (%) (Auto)2017-05-15 21:48:00* Test Item Value Reference Range Interpretation Comments Basophils (%) (Auto) (test code = 706-2) 0.5 0.0-1.0 [facility] CenterIM GRANULOCYTES %2017-05-15 21:48:00* Test Item Value Reference Range Interpretation Comments IM GRANULOCYTES % (test code = IM GRANULOCYTES %) 0.4 0.0- 1.0 [facility] CenterNeutrophils # (Auto)2017-05-15 21:48:00* Test Item Value Reference Range Interpretation Comments Neutrophils # (Auto) (test code = 751-8) 4.8 2.1-6.9 [facility] CenterLymphocytes # (Auto)2017-05-15 21:48:00* Test Item Value Reference Range Interpretation Comments Lymphocytes # (Auto) (test code = 45459-6) 2.9 1.0-3.2 [facility] CenterMonocytes # (Auto)2017-05-15 21:48:00* Test Item Value Reference Range Interpretation Comments Monocytes # (Auto) (test code = 742-7) 0.7 0.2-0.8 [facility] CenterEosinophils # (Auto)2017-05-15 21:48:00* Test Item Value Reference Range Interpretation Comments Eosinophils # (Auto) (test code = 711-2) 0.1 0.0-0.4 [facility] CenterBasophils # (Auto)2017-05-15 21:48:00* Test Item Value Reference Range Interpretation Comments Basophils # (Auto) (test code = 704-7) 0.0 0.0-0.1 [facility] CenterAbsolute Immature Granulocyte (auto 2017-05-15 21:48:00* Test Item Value Reference Range Interpretation Comments Absolute Immature Granulocyte (auto (evelia t code = Absolute Immature Granulocyte (auto) 0.03 0-0.1 [facility] [address] [place] [address] Patient Name: IVETTE DYSON MR #: [id number] : 1970 Age/Sex: 46/F Req #: [id number] Adm Physician: Ordered by: NATE SPRINGER Report #: [id number] Location: [place] Room/Bed: Procedure: [id number] NM/HEPTOBILIARY W PHARM Exam Date: 06/15/17 Exam Time: 824 REPORT STATUS: S igned Hepatobiliary Scan with [...] of 28% supports the clinical diagnosis of assistant to the ceo myles cholecystitis/gallbladder dyskinesia. Signed by: Dr. Dilip Ramirez M.D. on 06/15/2017 3:45 PM Dictated By: DILIP RAMIREZ MD [id number] Transcribed By: KAREN on 06/15/17 0669 COPY TO: NATE SPRINGER GALLBLADDER [place] [address] Patient Name: IVETTE GONZALEZ MR #: [id number] : 1970 Age/Sex: 46/F Req #: [id number] Adm Physician: Ordered by: DOT TRACY MD Report #: [id number] Location: ER Room/Bed: Procedure: [id number] US/US RUSLAN DAVIDSON Exam Date: 05/15/17 Exam Time: 2242 REPOR [...] 11:13 PM Dictated By: DANE PERSON MD [id number] COPY TO: RAUL TRACY MD
[2020-01-28 12:30] LABS: BASOPHILS # (AUTO) 0.1 (0.0-0.1); BASOPHILS % 0.3 % (0.0-1.0); EOSINOPHILS % 0.1 % (0.0-6.0); HEMATOCRIT 36.8 % (34.2-44.1); HEMOGLOBIN 12.6 g/dL (12.0-16.0); LYMPHOCYTES # (AUTO) 0.8 (1.0-3.2); LYMPHOCYTES % 4.6 % (18.0-39.1); MEAN CORPUSCULAR HEMOGLOBIN 29.7 pg (28-32); MEAN CORPUSCULAR HGB CONC 34.2 g/dL (31-35); MEAN CORPUSCULAR VOLUME 86.8 fL (81-99); MONOCYTES # (AUTO) 1.6 (0.2-0.8); MONOCYTES % 9.7 % (4.4-11.3); NEUTROPHILS # (AUTO) 14.2 (2.1-6.9); NEUTROPHILS % 84.6 % (38.7-80.0); PLATELET COUNT 192 x10e3/uL (140-360); RED BLOOD COUNT 4.24 x10e6/uL (3.6-5.1); RED CELL DISTRIBUTION WIDTH 13.2 % (11.7-14.4)
[2020-01-28 12:32] LABS: CLARITY,URINE CLOUDY (CLEAR); COLOR,URINE YELLOW (YELLOW); LEUKOCYTE ESTERASE ,URINE SMALL (NEGATIVE); NITRITE,URINE NEGATIVE (NEGATIVE); PROTEIN,URINE DIPSTICK 2+ (NEGATIVE)
[2020-01-28 12:33] LABS: BILIRUBIN,URINE NEGATIVE (NEGATIVE); KETONES,URINE NEGATIVE (NEGATIVE); URINE UROBILINOGEN 0.2 mg/dL (0.2 - 1)
[2020-01-28 12:41] LABS: BACTERIA,URINE FEW /HPF; EPITHELIAL CELLS,URINE FEW /LPF; RBC,URINE 21-50 /HPF (0-5); WBC,URINE (MAN) 21-50 /HPF (0-5)
[2020-01-28 12:57] LABS: ALANINE AMINOTRANSFERASE 20 IU/L (0-55); ALBUMIN 3.3 g/dL (3.5-5.0); ALBUMIN/GLOBULIN RATIO 0.9 (0.8-2.0); ALKALINE PHOSPHATASE 82 IU/L (40-150); ANION GAP 16.3 mmol/L (8-16); BLOOD UREA NITROGEN 10 mg/dL (7-26); BUN/CREATININE RATIO 13 (6-25); CALCIUM 8.2 mg/dL (8.4-10.2); CARBON DIOXIDE 23 mmol/L (22-29); CHLORIDE 99 mmol/L (98-107); CREATININE, SERUM 0.75 mg/dL (0.57-1.11); EST GLOMERULAR FILTRATION RATE > 60 ML/MIN (60-); GLUCOSE 185 mg/dL (74-118); POTASSIUM 3.3 mmol/L (3.5-5.1); SODIUM 135 mmol/L (136-145)
[2020-01-28] MEDS ORDERED: CEFTRIAXONE SOD 1 GM/NS 50 ML 50 ML IV ONE (13:30)
--- NOTE | 2020-01-28 14:04 | Emergency Department Note ---
History of Present Illnes History of Present Illness Chief Complaint: COVID PUI History of Present Illness This is a 49 year old female arrives to the ED with complaints of dysuria and back pain as well as fever at home. Chief Complaint Comment PATIENT IN FROM HOME WITH COMPLAINTS OF ARM AND BACK PAIN, BURNING WITH URINATION, AND RATES PAIN 7/10; STATES TOOK 500 MG TYLENOL AT ABOUT 1100. PATIENT TACHYCARDIC AND FEBRILE IN TRIAGE. PATIENT ALERT AND ORIENTED, AMBULATORY WITHOUT ASSISTANCE, APPEARS IN NO DISTRESS; STATES THAT SHE HAD COVID, BUT TESTED NEGATIVE 01/26/2020 Historian: Patient Arrival Mode: Car Onset (how long ago): day(s) Radiation: Reports non-radiation, Reports back Severity: mild Duration (how long): day(s) Timing of current episode: constant Progression: worsening Chronicity: new Associated symptoms: Reports fever/chills, Reports nausea/vomiting Past Medical/Family History Physician Review I have reviewed the patient's past medical and family history. Any updates have been documented here. Past Medical History Recent Fever: Yes Clinical Suspicion of Infectio: Yes New/Unexplained Change in Ment: No Past Medical History: Diabetes, Seizure Disorder Other Medical History: NARCOLEPSY Past Surgical History: Other Surgery: C/S X3 Social History Smoking Cessation: Unknown if ever smoked Alcohol Use: None Any Illegal Drug Use: No Physically hurt or threatened: No Other Last Tetanus: UTD Review of Systems Review of Systems Constitutional: Reports no symptoms EENTM: Reports no symptoms Cardiovascular: Reports no symptoms Respiratory: Reports no symptoms Gastrointestinal: Reports no symptoms Genitourinary: Reports as per HPI, Reports dysuria Musculoskeletal: Reports no symptoms Integumentary: Reports no symptoms Neurological: Reports no symptoms Psychological: Reports no symptoms Endocrine: Reports no symptoms Hematological/Lymphatic: Reports no symptoms Physical Exam Related Data Allergies: Coded Allergies: iodine (Verified Allergy, Unknown, ANAPHYLAXIS, 01/28/20) Triage Vital Signs Vital Signs Date Time Temp Pulse Resp B/P (MAP) Pulse Ox O2 Delivery O2 Flow Rate FiO2 01/28/20 12:03 102.2 145 20 111/80 98 Room Air Vital signs reviewed: Yes Physical Exam CONSTITUTIONAL Constitutional: Present well-developed, Present well-nourished HENT HENT: Present normocephalic, Present atraumatic, Present oropharynx clear/moist, Present nose normal HENT L/R: Present left ext ear normal, Present right ext ear normal EYES Eyes: Reports PERRL, Reports conjunctivae normal NECK Neck: Present ROM normal PULMONARY Pulmonary: Present effort normal, Present breath sounds normal CARDIOVASCULAR Cardiovascular: Present regular rhythm, Present heart sounds normal, Present capillary refill normal, Present normal rate GASTROINTESTINAL Abdominal: Present soft, Present bowel sounds normal, Present tender, Present left CVA tenderness, Present right CVA tenderness GENITOURINARY Genitourinary: Present exam deferred SKIN Skin: Present warm, Present dry MUSCULOSKELETAL Musculoskeletal: Present ROM normal NEUROLOGICAL Neurological: Present alert, Present oriented x 3, Present no gross motor or sensory deficits PSYCHOLOGICAL Psychological: Present mood/affect normal, Present judgement normal Results Laboratory Result Diagram: 01/28/20 1214 01/28/20 1214 Laboratory Laboratory Tests Test 01/28/20 13:11 01/28/20 12:40 01/28/20 12:14 Urine Test Negative (NEGATIVE) White Blood Count 16.84 x10e3/uL (4.8-10.8) Red Blood Count 4.24 x10e6/uL (3.6-5.1) Hemoglobin 12.6 g/dL (12.0-16.0) Hematocrit 36.8 % (34.2-44.1) Mean Corpuscular Volume 86.8 fL (81-99) Mean Corpuscular Hemoglobin 29.7 pg (28-32) Mean Corpuscular Hemoglobin Concent 34.2 g/dL (31-35) Red Cell Distribution Width 13.2 % (11.7-14.4) Platelet Count 192 x10e3/uL (140-360) Neutrophils (%) (Auto) 84.6 % (38.7-80.0) Lymphocytes (%) (Auto) 4.6 % (18.0-39.1) Monocytes (%) (Auto) 9.7 % (4.4-11.3) Eosinophils (%) (Auto) 0.1 % (0.0-6.0) Basophils (%) (Auto) 0.3 % (0.0-1.0) Neutrophils # (Auto) 14.2 (2.1-6.9) Lymphocytes # (Auto) 0.8 (1.0-3.2) Monocytes # (Auto) 1.6 (0.2-0.8) Eosinophils # (Auto) 0.0 (0.0-0.4) Basophils # (Auto) 0.1 (0.0-0.1) Absolute Immature Granulocyte (auto 0.12 x10e3/uL (0-0.1) Urine Color Yellow (YELLOW) Urine Clarity Cloudy (CLEAR) Urine pH 6.5 (5 - 7) Urine Specific [place] 1.010 (1.010-1.025) Urine Protein 2+ (NEGATIVE) Urine Glucose (UA) Negative (NEGATIVE) Urine Ketones Negative (NEGATIVE) Urine Blood Large (NEGATIVE) Urine Nitrite Negative (NEGATIVE) Urine Bilirubin Negative (NEGATIVE) Urine Urobilinogen 0.2 mg/dL (0.2 - 1) Urine Leukocyte Esterase Small (NEGATIVE) Urine RBC 21-50 /HPF (0-5) Urine WBC 21-50 /HPF (0-5) Urine Epithelial Cells Few /LPF (NONE) Urine Bacteria Few /HPF (NONE) Sodium Level 135 mmol/L (136-145) Potassium Level 3.3 mmol/L (3.5-5.1) Chloride Level 99 mmol/L (98-107) Carbon Dioxide Level 23 mmol/L (22-29) Anion Gap 16.3 mmol/L (8-16) Blood Urea Nitrogen 10 mg/dL (7-26) Creatinine 0.75 mg/dL (0.57-1.11) Estimat Glomerular Filtration Rate > 60 ML/MIN (60-) BUN/Creatinine Ratio 13 (6-25) Glucose Level 185 mg/dL (74-118) Calcium Level 8.2 mg/dL (8.4-10.2) Total Bilirubin 1.0 mg/dL (0.2-1.2) Aspartate Amino Transf (AST/SGOT) 16 IU/L (5-34) Alanine Aminotransferase (ALT/SGPT) 20 IU/L (0-55) Alkaline Phosphatase 82 IU/L (40-150) Total Protein 7.0 g/dL (6.5-8.1) Albumin 3.3 g/dL (3.5-5.0) Globulin 3.7 g/dL (2.3-3.5) Albumin/Globulin Ratio 0.9 (0.8-2.0) Assessment & Plan Medical Decision Making MDM Workup: Renal imaging to r/o renal/perinephric abscesses (BUS w/o overt e/o hydronephrosis) Interventions: Start ceftriaxone every 24 hours Disposition: Admission for IV ABX and continued monitoring Admission Indications in pyelonephritis: Comorbidities, coinfection with CoVID 19 Reassessment Reassessment Patient presenting with flank pain and fever. Differential included UTI, pyelo nephritis, diverticulitis, nephrolithiasis, appendicitis. Also considered but less likely given history and physical exam included constipation, bowel perforation, gastritis, pancreatitis, mesenteric ischemia. Patient febrile and provided with tylenol. Plan: labs, UA/cx, bedside ultrasound for hydro/stone, CT A/P, pain control, reassessment, antibiotics, anticipate admission Assessment & Plan Final Impression: (1) COVID-19 (2) Pyelonephritis Depart Disposition: ADMITTED Last Vital Signs Date Time Temp Pulse Resp B/P (MAP) Pulse Ox O2 Delivery O2 Flow Rate FiO2 01/28/20 12:03 102.2 145 20 111/80 98 Room Air Home Meds Reported Medications Lamotrigine (LAMICTAL) 100 Mg Tab, 50 MG PO DAILY 01/28/20 Metformin Hcl (METFORMIN HCL) 500 Mg Tablet, 500 MG PO BID, #60 TAB 07/31/17 Medications in the ED Morphine Sulfate 4 mg ONCE PRN IV SEVERE PAIN (7-10) Last administered on 01/28/20at 12:30; Admin Dose 4 MG; Start 01/28/20 at 12:15; Stop 02/04/20 at 12:14 Ondansetron HCl 4 mg NOW STAT IV Last administered on 01/28/20at 12:30; Admin Dose 4 MG; Start 01/28/20 at 12:07; Stop 01/28/20 at 12:12; Status DC Ceftriaxone Sodium 50 ml @ 100 mls/hr ONCE ONCE IV Last administered on 01/28/20at 13:38; Admin Dose 100 MLS/HR; Start 01/28/20 at 13:30; Stop 01/28/20 at 13:59; Status DC SAMIR MACIAS DO Jan 28, 2020 14:04
--- NOTE | 2020-01-28 15:06 | Diagnostic Imaging Report ---
EXAM: CT Abdomen and Pelvis WITHOUT contrast INDICATION: ^Y ^flank pain ^[id number] ^1400 COMPARISON: CT of the abdomen/pelvis on 03/15/2019 and 08/06/2018. TECHNIQUE: Abdomen and pelvis were scanned utilizing a multidetector helical scanner from the lung base to the pubic symphysis without administration of IV contrast. Absence of intravenous contrast decreases sensitivity for detection of focal lesions and vascular pathology. Coronal and sagittal reformations were obtained. Routine protocol was performed. IV CONTRAST: None ORAL CONTRAST: None COMPLICATIONS: None RADIATION DOSE: Total DLP: 782 mGy*cm Estimated effective dose: (DLP x 0.015 x size factor) mSv CTDIvol has been reviewed. It is below the limits set by the Radiation Protocol Committee (RPC). Dose modulation, iterative reconstruction, and/or weight based adjustment of the mA/kV was utilized to reduce the radiation dose to as low as reasonably achievable. FINDINGS: LINES and TUBES: None. LOWER THORAX: There is bibasilar atelectasis. HEPATOBILIARY: The liver is diffuse hypodense compared to the spleen, consistent with diffuse hepatic diffuse hepatic steatosis. No focal hepatic lesions. No biliary ductal dilation. GALLBLADDER: No radio-opaque stones or sludge. No wall thickening. SPLEEN: No splenomegaly. PANCREAS: No focal masses or ductal dilatation. ADRENALS: No adrenal nodules KIDNEYS/URETERS: No hydronephrosis. No cystic or solid mass lesions. There is nonspecific bilateral perinephric and periureteral fat stranding. Additionally, there is hypoattenuation of the bilateral ureteral lopez. No obstructive renal or ureteral stones identified. GI TRACT: No abnormal distention, wall thickening, or evidence of bowel obstruction. Appendix is normal. PELVIC ORGANS/BLADDER: The urinary bladder is decompressed and not well assessed as a result. There are multiple phleboliths in the pelvis. LYMPH NODES: No lymphadenopathy. VESSELS: Unremarkable. PERITONEUM / RETROPERITONEUM: No free air or fluid. BONES: Unremarkable. SOFT TISSUES: Unremarkable. IMPRESSION: Hyperattenuation of the bilateral ureteral lopez with perinephric and periureteral fat stranding. This constellation of findings are highly suspicious for ascending urinary tract infection. Pyelonephritis is not well assessed due to lack of intravenous contrast on current study. Correlate with urinalysis. No obstructive renal or ureteral stones. No evidence of hydronephrosis. Signed by: Tobias Blackwell MD on 01/28/2020 3:03 PM
[2020-01-28] MEDS ORDERED: ACETAMINOPHEN 325 MG TAB PO PRN ×2 (15:30→18:15)
[2020-01-28] MEDS ORDERED: CEFTRIAXONE SOD 1 GM/NS 50 ML 50 ML IV SCH (15:30)
[2020-01-28] MEDS: SODIUM CHLORIDE 0.9% 1000ML 1,000 ML IV SCH (15:31)
--- OUTSIDE RECORDS SUMMARY | 2020-01-28 15:47 | XMS REPORT | Continuity of Care Document ---
Author Author [facility] t Organization [facility] Address [address] [place] [phone] Phone Unavailable Care Team Providers Care Sheet Heater Helper Name Role Phone NATE SPRINGER PCP Brian MACIAS Attphys Unavailable Froylan PEDERSON Attphys Unavailable HUSBY, Froylan VILLATORO Attphys Unavailable NATE SPRINGER Attphys Unavailable Yovanny TRACY Attphys Unavailable Payers Payer Name Policy Type Policy Number Effective Date Expiration Date Brian davis [facility] [id number] 2019 00:00:00 [facility] Problems Condition Name Condition Details Condition Category Status Onset Date Resolution Date Last Treatment Date Treating Clinician Comments Source Muscle spasm Problem Active [facility] Infection due to severe acute respiratory syndrome coronavir us 2 (SARS-CoV-2) Problem Active [facility] Allergies, Adverse Reactions, Alerts This patient has no known allergies or adverse reactions. Social History Social Habit Start Date Stop Date Quantity Comments Source Sex Assigned At 1970 00:00:00 1970 00:00:00 Female [facility] Medications Ordered Medication Name Filled Medication Name Start Date Stop Da te Current Medication? Ordering Clinician Indication Dosage Frequency Signature (SIG) Comments Components Source Metformin Hcl Metformin Hcl Yes 500 Twice A Day [facility] Fluoxetine Hcl Fluoxetine Hcl 2017-11-24 00:00:00 No 20 Daily [facility] Vital Signs Vital Name Observation Time Observation Value Comments Source Oxygen saturation by Pulse oximetry 2020-01-19 18:00:00 98 /min [facility] Weight 2020-01-19 17:21:00 160 [lb_av] [facility] BMI (Body Mass Index) 2020-01-19 17:21:00 25.1 kg/m2 [facility] Weight 2019-11-11 09:11:00 176 [lb_av] [facility] BMI (Body Mass Index) 2019-11-11 09:11:00 29.3 kg/m2 [facility] Body Temperature 2019-03-15 18:38:00 98.8 [degF] [facility] Procedures This patient has no known procedures. Plan of Care Planned Activity Planned Date Details Comments Source Instructions COVID-19: 05/23/2019 [facility] Encounters Start Date/Time End Date/Time Encounter Type Admission Type Attendi [facility] Care Department Encounter ID Source 2020-01-19 17:30:00 2020-01-19 18:09:00 Departed Emergency Room [facility] [id number] [facility] 2019-11-11 10:30:00 2019-11-11 10:50:00 Departed Emergency Room [facility] [id number] [facility] 2019-03-15 12:55:00 2019-03-15 18:41:00 Departed Emergency Room 1 NAVJOT PEDERSON [facility] [id number] [facility] 2018-08-20 11:52:00 2018-08-20 11:52:00 Registered Surgical Day Care [facility] [id number] [facility] 2018-08-06 17:56:00 2018-08-06 21:51:00 Departed Emergency Room 1 IRVING ZUÑIGA [facility] [id number] [facility] 2018-06-25 17:10:00 2018-06-25 20:09:00 Departed Emergency Room 1 SAMIR EMMANUEL [facility] [id number] [facility] 2017-12-02 10:43:00 2017-12-02 10:43:00 Registered Surgical Day Care [facility] [id number] [facility] 2017-05-15 20:35:00 2017-05-16 00:10:00 Departed Emergency Room ER DOT TRACY [facility] [id number] [facility] Results Test Description Test Time Test Comments Results Result Comments Source CT ABDOMEN/PELVIS WO 2020-01-28 14:47:00 [facility] 1970 Sex: [place] [address] Patient Name: IVETTE DYSON MR #: [id number] : 1970 Age/Sex: 49/F Req #: [id number] Adm Physician: Ordered by: SAMIR MACIAS DO Report #: [id number] Location: ER Room/Bed: Procedure: [id number] CT/CT ABDOMEN/PELVIS WO Exam Date: 11/21/20 Exam Time: 1400 REPORT STATUS: Signed EXAM: CT Abdomen and Pelvis WITHOUT contrast INDICATION: Y flank pain [id number] COMPARISON: CT of the abdomen/pelvis on 03/15/2019 and 08/06/2018. TECHNIQUE: Abdomen and pelvis were scanned utilizing a multidetector helical scanner from the lung base to the pubic symphysis without administration of IV contrast. Absence of intravenous contrast decreases sensitivity for detection of focal lesions and vascular pathology. Coronal and sagittal reformations were obtained. Routine protocol was performed. IV CONTRAST: None ORAL CONTRAST: None COMPLICATIONS: None RADIATION DOSE: Total DLP: 782 mGy*cm Estimated effective dose: (DLP x 0.015 x size factor) mSv CTDIvol has been reviewed. It is below the limits set by the Radiation Protocol Committee (RPC). Dose modulation, iterative reconstruction, and/or weight based adjustment of the mA/kV was utilized to reduce the radiation dose to as low as reasonably achievable. FINDINGS: LINES and TUBES: None. LOWER THORAX: There is bibasilar atelectasis. HEPATOBILIARY: The liver is diffuse hypodense compared to the spleen, consistent with diffuse hepatic diffuse hepatic steatosis. No focal hepatic lesions. No biliary ductal dilation. GALLBLADDER: No radio-opaque stones or sludge. No wall thickening. SPLEEN: No splenomegaly. PANCREAS: No focal masses or ductal dilatation. ADRENALS: No adrenal nodules KIDNEYS/URETERS: No hydronephrosis. No cystic or solid mass lesions. There is nonspecific bilateral perinephric and periureteral fat stranding. Additionally, there is hypoattenuation of the bilateral ureteral lopez. No obstructive renal or ureteral stones identified. GI TRACT: No abnormal distention, wall thickening, or evidence of bowel obstruction. Appendix is normal. PELVIC ORGANS/BLADDER: The urinary bladder is decompressed and not well assessed as a result. There are multiple phleboliths in the pelvis. LYMPH NODES: No lymphadenopathy. VESSELS: Unremarkable. PERITONEUM / RETROPERITONEUM: No free air or fluid. BONES: Unremarkable. SOFT TISSUES: Unremarkable. IMPRESSION: Hyperattenuation of the bilateral ureteral lopez with perinephric and periureteral fat stranding. This constellation of findings are highly suspicious for ascending urinary tract infection. Pyelonephritis is not well assessed due to lack of intravenous contrast on current study. Correlate with urinalysis. No obstructive renal or ureteral stones. No evidence of hydronephrosis. Signed by: Tiff Arthur MD on 01/28/2020 3:03 PM Dictated By: TIFF ARTHUR MD [id number] Transcribed By: KAREN on 01/28/20 [id number] COPY TO: SAMIR MACIAS DO CT ABDOMEN/PELVIS W 2019-03-15 17:35:00 [place] [address] Patient Name: IVETTE DYSON MR #: [id number] : 1970 Age/Sex: 48/F Req #: [id number] Adm Physician: Ordered by: MARCELLA KAUFFMAN NP Report #: [id number] Location: ER Room/Bed: Procedure: [id number] CT/CT ABDOMEN/PELVIS W Exam Date: 03/15/19 Exam [...] Level (test code = 2951-2) 136 136-145 [facility]Potassium Fjcdl2192-24-18 16:06:00* Test Item Value Reference Range Interpretation Comments Potassium Level (test code = 2823-3) 3.8 3.5-5.1 [facility] HospitalChloride Qmdmo2337-53-87 16:06:00* Test Item Value Reference Range Interpretation Comments Chloride Level (test code = 2075-0) 101 98-107 [facility] HospitalCarbon Dioxide Usniv0631-18-96 16:06:00* Test Item Value Reference Range Interpretation Comments Carbon Dioxide Level (test code = 2028-9) 26 22-29 [facility] HospitalAnion Sak7441-11-29 16:06:00* Test Item Value Reference Range Interpretation Comments Anion Gap (test code = 32626-5) 12.8 8-16 [facility] HospitalBlood Urea Kpkziidt6780-69-22 16:06:00* Test Item Value Reference Range Interpretation Comments Blood Urea Nitrogen (test code = 3094-0) 6 7-26 L [facility] HospitalCreatinine2020-01-07 16:06:00* Test Item Value Reference Range Interpretation Comments Creatinine (test code = 2160-0) 0.78 0.57-1.11 [facility] HospitalBUN/Creatinine Jktth6924-70-66 16:06:00* Test Item Value Reference Range Interpretation Comments BUN/Creatinine Ratio (test code = 3097-3) 8 6-25 [facility] HospitalEstimat Glomerular Filtration Rate 2019-03-15 16:06:00* Test Item Value Reference Range Interpretation Comments Estimat Glomerular Filtration Rate (test code = 400873014) > 60 >60 Ranges were taken from the National Kidney Disease Education Program and the [facility] Kidney Foundation literature.Reference ranges:60 or greater: Bjewkq78-38 ( for 3 consecutive months): Chronic kidney disease 15 or less: Kidney failureUvalde Memorial HospitalGlucose Hrfbz6509-96-00 16:06:00* Test Item Value Reference Range Interpretation Comments Glucose Level (test code = CVT4577) 205 74-118 H [facility] HospitalCalcium Umkmv9631-13-74 16:06:00* Test Item Value Reference Range Interpretation Comments Calcium Level (test code = 88917-5) 8.6 8.4-10.2 [facility] HospitalTotal Aegzxshbe7765-74-33 16:06:00* Test Item Value Reference Range Interpretation Comments Total Bilirubin (test code = 1975-2) 0.4 0.2-1.2 [facility] HospitalAspartate Amino Transf (AST/SGOT) 2019-03-15 16:06:00* Test Item Value Reference Range Interpretation Comments Aspartate Amino Transf (AST/SGOT) (test code = Aspartate Amino Transf (AST/SGOT)) 24 5-34 [facility] HospitalAlanine Aminotransferase (ALT/SGPT) 2019-03-15 16:06:00* Test Item Value Reference Range Interpretation Comments Alanine Aminotransferase (ALT/SGPT) (test code = 1742-6) 27 0-55 [facility] HospitalTotal Ytbjqqb1890-10-47 16:06:00* Test Item Value Reference Range Interpretation Comments Total Protein (test code = 2885-2) 6.6 6.5-8.1 [facility] HospitalAlbumin2020-01-07 16:06:00* Test Item Value Reference Range Interpretation Comments Albumin (test code = 1751-7) 3.3 3.5-5.0 L [facility] HospitalGlobulin2020-01-07 16:06:00* Test Item Value Reference Range Interpretation Comments Globulin (test code = 32511-3) 3.3 2.3-3.5 [facility] HospitalAlbumin/Globulin Ryxze7420-66-35 16:06:00 * Test Item Value Reference Range Interpretation Comments Albumin/Globulin Ratio (test code = 1759-0) 1.0 0.8-2.0 [facility] HospitalAlkaline Jymbkizgaah6418-56-67 16:06:00* Test Item Value Reference Range Interpretation Comments Alkaline Phosphatase (test code = 6768-6) 82 40-150 [facility] HospitalLipase2020-01-07 16:06:00* Test Item Value Reference Range Interpretation Comments Lipase (test code = 3040-3) 37 8-78 [facility] HospitalHuman Chorionic Gonadotropin, Qual 2019-03-15 16:01:00* Test Item Value Reference Range Interpretation Comments Human Chorionic Gonadotropin, Qual (test code = 2118-8) NEGATIVE NEGATIVE [facility] HospitalWhite Blood Yjlxf9738-67-73 15:44:00* Test Item Value Reference Range Interpretation Comments White Blood Count (test code = 6690-2) 5.37 4.8-10.8 [facility] HospitalRed Blood Qtqgq7468-47-12 15:44:00* Test Item Value Reference Range Interpretation Comments Red Blood Count (test code = 789-8) 4.63 3.6-5.1 [facility] HospitalHemoglobin2020-01-07 15:44:00* Test Item Value Reference Range Interpretation Comments Hemoglobin (test code = 25873-9) 13.3 12.0-16.0 [facility] HospitalHematocrit2020-01-07 15:44:00* Test Item Value Reference Range Interpretation Comments Hematocrit (test code = 4544-3) 40.7 34.2-44.1 [facility] HospitalMean Corpuscular Rswjqn3538-82-25 15:44:00* Test Item Value Reference Range Interpretation Comments Mean Corpuscular Volume (test code = 787-2) 87.9 81-99 [facility] HospitalMean Corpuscular Wnmioyfozk2368-45-12 15:44:00* Test Item Value Reference Range Interpretation Comments Mean Corpuscular Hemoglobin (test code = 785-6) 28.7 28-32 [facility] Corp[facility] Hemoglobin Concent 2019-03-15 15:44:00* Test Item Value Reference Range Interpretation Comments Mean Corpuscular Hemoglobin Concent (test code = 786-4) 32.7 31-35 [facility] HospitalRed Cell Distribution Zgkab8622-69-90 15:44:00* Test Item Value Reference Range Interpretation Comments Red Cell Distribution Width (test code = 01406-7) 14.5 11.7 -14.4 H [facility] HospitalPlatelet Mywun2866-92-29 15:44:00* Test Item Value Reference Range Interpretation Comments Platelet Count (test code = 777-3) 234 140-360 [facility] HospitalNeutrophils (%) (Auto)2019-03-15 15:44:00 * Test Item Value Reference Range Interpretation Comments Neutrophils (%) (Auto) (test code = 68227-1) 49.9 38.7-80.0 [facility] HospitalLymphocytes (%) (Auto)2019-03-15 15:44:00 * Test Item Value Reference Range Interpretation Comments Lymphocytes (%) (Auto) (test code = 736-9) 41.0 18.0-39.1 H [facility] HospitalMonocytes (%) (Auto)2019-03-15 15:44:00* Test Item Value Reference Range Interpretation Comments Monocytes (%) (Auto) (test code = 5905-5) 6.5 4.4-11.3 [facility] HospitalEosinophils (%) (Auto)2019-03-15 15:44:00 * Test Item Value Reference Range Interpretation Comments Eosinophils (%) (Auto) (test code = 713-8) 2.2 0.0-6.0 [facility] HospitalBasophils (%) (Auto)2019-03-15 15:44:00* Test Item Value Reference Range Interpretation Comments Basophils (%) (Auto) (test code = 706-2) 0.2 0.0-1.0 [facility] HospitalIM GRANULOCYTES %2019-03-15 15:44:00* Test Item Value Reference Range Interpretation Comments IM GRANULOCYTES % (test code = IM GRANULOCYTES %) 0.2 0.0- 1.0 [facility] HospitalNeutrophils # (Auto)2019-03-15 15:44:00* Test Item Value Reference Range Interpretation Comments Neutrophils # (Auto) (test code = 751-8) 2.7 2.1-6.9 [facility] HospitalLymphocytes # (Auto)2019-03-15 15:44:00* Test Item Value Reference Range Interpretation Comments Lymphocytes # (Auto) (test code = 65819-5) 2.2 1.0-3.2 [facility] HospitalMonocytes # (Auto)2019-03-15 15:44:00* Test Item Value Reference Range Interpretation Comments Monocytes # (Auto) (test code = 742-7) 0.4 0.2-0.8 [facility] HospitalEosinophils # (Auto)2019-03-15 15:44:00* Test Item Value Reference Range Interpretation Comments Eosinophils # (Auto) (test code = 711-2) 0.1 0.0-0.4 [facility] HospitalBasophils # (Auto)2019-03-15 15:44:00* Test Item Value Reference Range Interpretation Comments Basophils # (Auto) (test code = 704-7) 0.0 0.0-0.1 [facility] HospitalAbsolute Immature Granulocyte (auto 2019-03-15 15:44:00* Test Item Value Reference Range Interpretation Comments Absolute Immature Granulocyte (auto (evelia t code = Absolute Immature Granulocyte (auto) 0.01 0-0.1 [facility] HospitalUS ABDOMEN SGFKDHJW1488-81-53 15:14:00 [facility] [address] [place] [address] Patient Name: IVETTE DYSON MR #: [id number] : [birth year] Age/Sex: 48/F Req #: [id number] Adm Physician: Ordered by: MARCELLA KAUFFMAN NP Report #: [id number] Location: ER Room/Bed: Procedure: [id number] US/US ABDOMEN COMPLETE Exam Date: 03/15/19 Exam [...] 3:17 PM Dictated By: SIMEON MALIN MD 1517 Transcr ibed By: KAREN on 03/15/19 8397 COPY TO: MARCELLA KAUFFMAN CERTIFIED COURT/MEDICAL INTERPRETER Blood leukocytes automated count (number/volume)2019-03-15 13:07:00* Test Item Value Reference Range Interpretation Comments White Blood Count (test code = 6690-2) 5.37 4.8-10.8 [facility] HospitalBlood erythrocytes automated count (number/volume)2019-03-15 13:07:00* Test Item Value Reference Range Interpretation Comments Red Blood Count (test code = 789-8) 4.63 3.6-5.1 [facility] HospitalBlood hemoglobin measurement (moles/volume)2019-03-15 13:07:00* Test Item Value Reference Range Interpretation Comments Hemoglobin (test code = 20588-5) 13.3 12.0-16.0 [facility] HospitalAutomated blood hematocrit (volume fraction)2019-03-15 13:07:00* Test Item Value Reference Range Interpretation Comments Hematocrit (test code = 4544-3) 40.7 34.2-44.1 [facility] HospitalAutomated erythrocyte mean corpuscular svuhvq5362-18-10 13:07:00* Test Item Value Reference Range Interpretation Comments Mean Corpuscular Volume (test code = 787-2) 87.9 81-99 [facility] HospitalAutomated erythrocyte mean corpuscular hemoglobin (mass per erythrocyte)2019-03-15 13:07:00* Test Item Value Reference Range Interpretation Comments Mean Corpuscular Hemoglobin (test code = 785-6) 28.7 28-32 [facility] HospitalAutomated erythrocyte mean corpuscular hemoglobin concentration measurement (mass/volume)2019-03-15 13:07:00* Test Item Value Reference Range Interpretation Comments Mean Corpuscular Hemoglobin Concent (test code = 786-4) 32.7 31-35 [facility] HospitalRDW GmcSz-Hjq7682-62-07 13:07:00* Test Item Value Reference Range Interpretation Comments Red Cell Distribution Width (test code = 40847-2) 14.5 11.7 -14.4 [facility] HospitalAutomated blood platelet count (count/volume)2019-03-15 13:07:00* Test Item Value Reference Range Interpretation Comments Platelet Count (test code = 777-3) 234 140-360 [facility] HospitalAutcarolinas continuecare hospital [facility] universityed blood segmented neutrophil count as percentage of total vdbfqescht6082-28-15 13:07:00* Test Item Value Reference Range Interpretation Comments Neutrophils (%) (Auto) (test code = 94238-7) 49.9 38.7-80.0 [facility] HospitalAutomated blood lymphocyte count as percentage ot total hwreblmoka6187-20-31 13:07:00* Test Item Value Reference Range Interpretation Comments Lymphocytes (%) (Auto) (test code = 736-9) 41.0 18.0-39.1 [facility] HospitalAutcarolinas continuecare hospital at universityed blood monocyte count as percentage of total eadvlijepr1962-13-05 13:07:00* Test Item Value Reference Range Interpretation Comments Monocytes (%) (Auto) (test code = 5905-5) 6.5 4.4-11.3 [facility] HospitalAutomated blood eosinophil count as percentage of total zrxdtafyhh6614-16-75 13:07:00* Test Item Value Reference Range Interpretation Comments Eosinophils (%) (Auto) (test code = 713-8) 2.2 0.0-6.0 [facility] HospitalAutcarolinas continuecare hospital [facility] universityed blood basophil count as percentage of total uxqbhgmeyj9214-60-08 13:07:00* Test Item Value Reference Range Interpretation Comments Basophils (%) (Auto) (test code = 706-2) 0.2 0.0-1.0 [facility] HospitalFluoroscopic procedure less than one hour brujbkga9942-97-99 13:07:00* Test Item Value Reference Range Interpretation Comments IM GRANULOCYTES % (test code = IM GRANULOCYTES %) 0.2 0.0- 1.0 [facility] count 2019-03-15 13:07:00* Test Item Value Reference Range Interpretation Comments Neutrophils # (Auto) (test code = 751-8) 2.7 2.1-6.9 [facility] HospitalBlood lymphocytes count (number/volume) 2019-03-15 13:07:00* Test Item Value Reference Range Interpretation Comments Lymphocytes # (Auto) (test code = 77670-9) 2.2 1.0-3.2 [facility] monocytes automated count (number/volume)2019-03-15 13:07:00* Test Item Value Reference Range Interpretation Comments Monocytes # (Auto) (test code = 742-7) 0.4 0.2-0.8 [facility] HospitalAutomated blood eosinophil count 2019-03-15 13:07:00* Test Item Value Reference Range Interpretation Comments Eosinophils # (Auto) (test code = 711-2) 0.1 0.0-0.4 [facility] HospitalAutomated blood basophil count (count/volume)2019-03-15 13:07:00* Test Item Value Reference Range Interpretation Comments Basophils # (Auto) (test code = 704-7) 0.0 0.0-0.1 [facility] HospitalFluoroscopic procedure less than one hour kvqrqqms3448-71-12 13:07:00* Test Item Value Reference Range Interpretation Comments Absolute Immature Granulocyte (auto (evelia t code = Absolute Immature Granulocyte (auto) 0.01 0-0.1 [facility]um or plasma sodium measurement (moles/volume)2019-03-15 13:07:00* Test Item Value Reference Range Interpretation Comments Sodium Level (test code = 2951-2) 136 136-145 [facility] Texaserum or plasma potassium measurement (moles/volume)2019-03-15 13:07:00* Test Item Value Reference Range Interpretation Comments Potassium Level (test code = 2823-3) 3.8 3.5-5.1 [facility] Texaserum or plasma chloride measurement (moles/volume)2019-03-15 13:07:00* Test Item Value Reference Range Interpretation Comments Chloride Level (test code = 2075-0) 101 98-107 [facility] Texaserum or plasma carbon dioxide, total measurement (moles/volume)2019-03-15 13:07:00* Test Item Value Reference Range Interpretation Comments Carbon Dioxide Level (test code = 2028-9) 26 22-29 [facility] Texaserum or plasma anion lyn3582-14-62 13:07:00* Test Item Value Reference Range Interpretation Comments Anion Gap (test code = 67562-0) 12.8 8-16 [facility] Texaserum or plasma urea nitrogen measurement (mass/volume)2019-03-15 13:07:00* Test Item Value Reference Range Interpretation Comments Blood Urea Nitrogen (test code = 3094-0) 6 7-26 [facility] Texaserum or plasma creatinine measurement (mass/volume)2019-03-15 13:07:00* Test Item Value Reference Range Interpretation Comments Creatinine (test code = 2160-0) 0.78 0.57-1.11 [facility] Texaserum or plasma urea nitrogen/creatinine mass uperw0726-52-45 13:07:00* Test Item Value Reference Range Interpretation Comments BUN/Creatinine Ratio (test code = 3097-3) 8 6-25 [facility] HospitalEstimated glomerular filtration rate (GFR) esuzwcxqkkrym7097-06-09 13:07:00* Test Item Value Reference Range Interpretation Comments Estimat Glomerular Filtration Rate (test code = 918264580) > 60 >60 Ranges were taken from the National Kidney Disease Education Program and the [facility] Foundation literature.Reference ranges:60 or greater: Wrmyej78-10 ( for 3 consecutive months): Chronic kidney disease 15 or less: Kidney failureUvalde Memorial HospitalGlucose zqlsnzlmzxu1128-87-23 13:07:00* Test Item Value Reference Range Interpretation Comments Glucose Level (test code = TJJ6886) 205 74-118 [facility] Texaserum or plasma calcium measurement (mass/volume)2019-03-15 13:07:00* Test Item Value Reference Range Interpretation Comments Calcium Level (test code = 89243-6) 8.6 8.4-10.2 [facility] Texaserum or plasma total bilirubin measurement (mass/volume)2019-03-15 13:07:00* Test Item Value Reference Range Interpretation Comments Total Bilirubin (test code = 1975-2) 0.4 0.2-1.2 [facility] HospitalFluoroscopic procedure less than one hour rsscldze2130-63-71 13:07:00* Test Item Value Reference Range Interpretation Comments Aspartate Amino Transf (AST/SGOT) (test code = Aspartate Amino Transf (AST/SGOT)) 24 5-34 [facility] Texaserum or plasma alanine aminotransferase measurement (enzymatic activity/volume)2019-03-15 13:07:00* Test Item Value Reference Range Interpretation Comments Alanine Aminotransferase (ALT/SGPT) (test code = 1742-6) 27 0-55 [facility] Texaserum or plasma protein measurement (mass/volume)2019-03-15 13:07:00* Test Item Value Reference Range Interpretation Comments Total Protein (test code = 2885-2) 6.6 6.5-8.1 [facility] Texaserum or plasma albumin measurement (mass/volume)2019-03-15 13:07:00* Test Item Value Reference Range Interpretation Comments Albumin (test code = 1751-7) 3.3 3.5-5.0 [facility] HospitalPlasma globulin measurement (mass/volume) 2019-03-15 13:07:00* Test Item Value Reference Range Interpretation Comments Globulin (test code = 09158-5) 3.3 2.3-3.5 [facility] Texaserum or plasma albumin/globulin mass pnkpt2044-73-05 13:07:00* Test Item Value Reference Range Interpretation Comments Albumin/Globulin Ratio (test code = 1759-0) 1.0 0.8-2.0 [facility] Texaserum or plasma alkaline phosphatase measurement (enzymatic activity/volume)2019-03-15 13:07:00* Test Item Value Reference Range Interpretation Comments Alkaline Phosphatase (test code = 6768-6) 82 40-150 [facility] Texaserum or plasma lipase measurement (enzymatic activity/volume)2019-03-15 13:07:00* Test Item Value Reference Range Interpretation Comments Lipase (test code = 3040-3) 37 8-78 [facility] Texaserum or plasma choriogonadotropin ( test) pzvnorshp2561-18-63 13:07:00* Test Item Value Reference Range Interpretation Comments Human Chorionic Gonadotropin, Qual (test code = 2118-8) NEGATIVE NEGATIVE [facility] HospitalBacterial urine ddhqdlf4360-33-43 13:07:00* Test Item Value Reference Range Interpretation Comments Urine Culture (test code = 630-4) KLEBSIELLA PNEUMONIAE-ESBL [facility] HospitalBedside Wdxjqsh5726-86-22 16:08:00* Test Item Value Reference Range Interpretation Comments Bedside Glucose (test code = 51312-9) 91 70-120 Meter ID: [id number] Memorial HospitalUrine YMV3982-86-08 20:54:00* Test Item Value Reference Range Interpretation Comments Urine WBC (test code = 5821-4) NONE 0-5 [facility] HospitalU[facility] MXK7524-24-65 20:54:00* Test Item Value Reference Range Interpretation Comments Urine RBC (test code = 15902-8) 0-5 0-5 [facility] Ytjagrha4250-98-19 20:54:00* Test Item Value Reference Range Interpretation Comments Urine Bacteria (test code = 68426-3) NONE NONE [facility] HospitalU[facility] Epithelial Kipnu3852-54-75 20:54:00 * Test Item Value Reference Range Interpretation Comments Urine Epithelial Cells (test code = 84838-1) FEW NONE [facility] HospitalU[facility] OOQ6073-63-22 20:54:00* Test Item Value Reference Range Interpretation Comments Urine WBC (test code = 5821-4) NONE 0-5 [facility] HospitalU[facility] ZWG9272-60-69 20:54:00* Test Item Value Reference Range Interpretation Comments Urine RBC (test code = 80983-5) 0-5 0-5 [facility] Fhdzazlg7299-82-25 20:54:00* Test Item Value Reference Range Interpretation Comments Urine Bacteria (test code = 26740-5) NONE NONE [facility] HospitalU[facility] Epithelial Uibmi8809-50-84 20:54:00 * Test Item Value Reference Range Interpretation Comments Urine Epithelial Cells (test code = 42548-6) FEW NONE [facility] HospitalCT ABDOMEN/PELVIS Y4069-03-64 20:46:00 [facility] [address] [address] Patient Name: IVETTE DYSON MR #: [id number] : 973 Age/Sex: 48/F Req #: [id number] Adm Physician: Ordered by: EDISON CANAS CERTIFIED COURT/MEDICAL INTERPRETER Report #: [id number] Location: ER Room/Bed: Procedure: [id number] CT /CT ABDOMEN/PELVIS W Exam Date: 08/06/18 Exam Time: 1944 REPORT STATUS: Signed EXAM: CT Abdomen and Pelvis WITH contrast INDICATION: ABD BLOATING AND P AIN [id number] COMPARISON: Gallbladder ultrasound 05/15/2017 TECHNIQUE: Abdomen [...] 48 COPY TO: EDISON CANAS NP Urine Inemp2384-66-72 20:35:00* Test Item Value Reference Range Interpretation Comments Urine Color (test code = 5778-6) YELLOW YELLOW [facility] HospitalU[facility] Vhpoooo0514-34-60 20:35:00* Test Item Value Reference Range Interpretation Comments Urine Clarity (test code = 54401-8) CLEAR CLEAR [facility] HospitalU[facility] Specific Tydpzob5773-23-19 20:35:00 * Test Item Value Reference Range Interpretation Comments Urine Specific [place] (test code = 5811-5) 1.010 1.010-1.02 5 [facility] HospitalU[facility] bA3383-59-00 20:35:00* Test Item Value Reference Range Interpretation Comments Urine pH (test code = 43198-1) 7.5 5-7 [facility] Leukocyte Fwsqimmm9535-19-26 20:35:00* Test Item Value Reference Range Interpretation Comments Urine Leukocyte Esterase (test code = 44196-4) NEGATIVE NEGATIV E [facility] Darqofh4681-74-52 20:35:00* Test Item Value Reference Range Interpretation Comments Urine Nitrite (test code = 55026-0) NEGATIVE NEGATIVE [facility] Dqmbrnb4275-81-37 20:35:00* Test Item Value Reference Range Interpretation Comments Urine Protein (test code = 61565-6) NEGATIVE NEGATIVE [facility] Glucose (UA)2018-08-06 20:35:00* Test Item Value Reference Range Interpretation Comments Urine Glucose (UA) (test code = 96830-3) NEGATIVE NEGATIVE [facility] Wcundxj9960-61-56 20:35:00* Test Item Value Reference Range Interpretation Comments Urine Ketones (test code = 13649-7) NEGATIVE NEGATIVE [facility] Ibdfuhdtikkq8038-30-85 20:35:00* Test Item Value Reference Range Interpretation Comments Urine Urobilinogen (test code = 71847-5) 0.2 0.2-1 [facility] Fjiugfcgz8490-00-58 20:35:00* Test Item Value Reference Range Interpretation Comments Urine Bilirubin (test code = 1977-8) NEGATIVE NEGATIVE [facility] Oxgrv3305-33-35 20:35:00* Test Item Value Reference Range Interpretation Comments Urine Blood (test code = 25254-3) MODERATE NEGATIVE [facility] Jixxx1144-31-87 20:35:00* Test Item Value Reference Range Interpretation Comments Urine Color (test code = 5778-6) YELLOW YELLOW [facility] Gbnwkkm0205-28-72 20:35:00* Test Item Value Reference Range Interpretation Comments Urine Clarity (test code = 84370-1) CLEAR CLEAR [facility] Specific Uhiptfw1950-96-56 20:35:00 * Test Item Value Reference Range Interpretation Comments Urine Specific [place] (test code = 5811-5) 1.010 1.010-1.02 5 [facility] HospitalU[facility] pK3386-22-14 20:35:00* Test Item Value Reference Range Interpretation Comments Urine pH (test code = 16546-5) 7.5 5-7 [facility] Leukocyte Uxlbjyvm6928-63-30 20:35:00* Test Item Value Reference Range Interpretation Comments Urine Leukocyte Esterase (test code = 66478-4) NEGATIVE NEGATIV E [facility] Bymutyn9730-72-90 20:35:00* Test Item Value Reference Range Interpretation Comments Urine Nitrite (test code = 23557-3) NEGATIVE NEGATIVE [facility] Gprymma1672-74-86 20:35:00* Test Item Value Reference Range Interpretation Comments Urine Protein (test code = 34871-0) NEGATIVE NEGATIVE [facility] Glucose (UA)2018-08-06 20:35:00* Test Item Value Reference Range Interpretation Comments Urine Glucose (UA) (test code = 41098-2) NEGATIVE NEGATIVE [facility] Ixzxhhr1337-50-09 20:35:00* Test Item Value Reference Range Interpretation Comments Urine Ketones (test code = 66350-8) NEGATIVE NEGATIVE [facility] Izckvyoqroes6438-30-53 20:35:00* Test Item Value Reference Range Interpretation Comments Urine Urobilinogen (test code = 42964-2) 0.2 0.2-1 [facility] Tkwowhvru7718-00-69 20:35:00* Test Item Value Reference Range Interpretation Comments Urine Bilirubin (test code = 1977-8) NEGATIVE NEGATIVE [facility] Fffhw5464-64-18 20:35:00* Test Item Value Reference Range Interpretation Comments Urine Blood (test code = 50899-1) MODERATE NEGATIVE [facility] Ocmzm0737-56-17 19:11:00* Test Item Value Reference Range Interpretation Comments Sodium Level (test code = 2951-2) 136 136-145 [facility] HospitalPotassium Jwxbr2461-35-46 19:11:00* Test Item Value Reference Range Interpretation Comments Potassium Level (test code = 2823-3) 3.7 3.5-5.1 [facility] HospitalChloride Bnovr9633-75-21 19:11:00* Test Item Value Reference Range Interpretation Comments Chloride Level (test code = 2075-0) 102 98-107 [facility] HospitalCarbon Dioxide Wbhmt5034-59-84 19:11:00* Test Item Value Reference Range Interpretation Comments Carbon Dioxide Level (test code = 2028-9) 27 22-29 [facility] HospitalAnion Khx0712-44-37 19:11:00* Test Item Value Reference Range Interpretation Comments Anion Gap (test code = 58267-4) 10.7 8-16 [facility] HospitalBlood Urea Hicizlxp5831-12-13 19:11:00* Test Item Value Reference Range Interpretation Comments Blood Urea Nitrogen (test code = 3094-0) 7 7-26 [facility] HospitalCreatinine2019-05-31 19:11:00* Test Item Value Reference Range Interpretation Comments Creatinine (test code = 2160-0) 0.77 0.57-1.11 [facility] HospitalBUN/Creatinine Lpqxs0480-28-67 19:11:00* Test Item Value Reference Range Interpretation Comments BUN/Creatinine Ratio (test code = 3097-3) 9 6-25 [facility] HospitalEstimat Glomerular Filtration Rate 2018-08-06 19:11:00* Test Item Value Reference Range Interpretation Comments Estimat Glomerular Filtration Rate (test code = 493831320) > 60 >60 Ranges were taken from the National Kidney Disease Education Program and the [facility] literature.Reference ranges:60 or greater: Vsbzby10-96 ( for 3 consecutive months): Chronic kidney disease 15 or less: Kidney failureUvalde Memorial HospitalGlucose Bhslk5261-10-43 19:11:00* Test Item Value Reference Range Interpretation Comments Glucose Level (test code = KLM3446) 193 74-118 H [facility] HospitalCalcium Yddun6036-28-43 19:11:00* Test Item Value Reference Range Interpretation Comments Calcium Level (test code = 40054-9) 8.8 8.4-10.2 [facility] HospitalTotal Woxzqyden1702-97-28 19:11:00* Test Item Value Reference Range Interpretation Comments Total Bilirubin (test code = 1975-2) 0.3 0.2-1.2 [facility] HospitalAspartate Amino Transf (AST/SGOT) 2018-08-06 19:11:00* Test Item Value Reference Range Interpretation Comments Aspartate Amino Transf (AST/SGOT) (test code = Aspartate Amino Transf (AST/SGOT)) 31 5-34 [facility] HospitalAlanine Aminotransferase (ALT/SGPT) 2018-08-06 19:11:00* Test Item Value Reference Range Interpretation Comments Alanine Aminotransferase (ALT/SGPT) (test code = 1742-6) 43 0-55 [facility] HospitalTotal Uyyyqwt2218-73-17 19:11:00* Test Item Value Reference Range Interpretation Comments Total Protein (test code = 2885-2) 6.8 6.5-8.1 [facility] HospitalAlbumin2019-05-31 19:11:00* Test Item Value Reference Range Interpretation Comments Albumin (test code = 1751-7) 3.4 3.5-5.0 L [facility] HospitalGlobulin2019-05-31 19:11:00* Test Item Value Reference Range Interpretation Comments Globulin (test code = 95792-0) 3.4 2.3-3.5 [facility] HospitalAlbumin/Globulin Ygwfs7966-12-57 19:11:00 * Test Item Value Reference Range Interpretation Comments Albumin/Globulin Ratio (test code = 1759-0) 1.0 0.8-2.0 [facility] HospitalAlkaline Lbjjdxtezgh7551-48-18 19:11:00* Test Item Value Reference Range Interpretation Comments Alkaline Phosphatase (test code = 6768-6) 89 40-150 [facility] HospitalWhite Blood Pdccs7143-66-41 18:40:00* Test Item Value Reference Range Interpretation Comments White Blood Count (test code = 6690-2) 7.82 4.8-10.8 [facility] HospitalRed Blood Pavfn1709-96-65 18:40:00* Test Item Value Reference Range Interpretation Comments Red Blood Count (test code = 789-8) 4.54 3.6-5.1 [facility] HospitalHemoglobin2019-05-31 18:40:00* Test Item Value Reference Range Interpretation Comments Hemoglobin (test code = 56728-5) 13.0 12.0-16.0 [facility] HospitalHematocrit2019-05-31 18:40:00* Test Item Value Reference Range Interpretation Comments Hematocrit (test code = 4544-3) 38.8 34.2-44.1 [facility] HospitalMean Corpuscular Zageaa3631-22-83 18:40:00* Test Item Value Reference Range Interpretation Comments Mean Corpuscular Volume (test code = 787-2) 85.5 81-99 [facility] HospitalMean Corpuscular Ovloxxxkuh8510-51-94 18:40:00* Test Item Value Reference Range Interpretation Comments Mean Corpuscular Hemoglobin (test code = 785-6) 28.6 28-32 [facility] HospitalMean Corpuscular Hemoglobin Concent 2018-08-06 18:40:00* Test Item Value Reference Range Interpretation Comments Mean Corpuscular Hemoglobin Concent (test code = 786-4) 33.5 31-35 [facility] HospitalRed Cell Distribution Ilsai0128-92-41 18:40:00* Test Item Value Reference Range Interpretation Comments Red Cell Distribution Width (test code = 88100-6) 16.2 11.7 -14.4 H [facility] HospitalPlatelet Cwlum4544-21-62 18:40:00* Test Item Value Reference Range Interpretation Comments Platelet Count (test code = 777-3) 284 140-360 [facility] HospitalNeutrophils (%) (Auto)2018-08-06 18:40:00 * Test Item Value Reference Range Interpretation Comments Neutrophils (%) (Auto) (test code = 10940-3) 65.5 38.7-80.0 [facility] HospitalLymphocytes (%) (Auto)2018-08-06 18:40:00 * Test Item Value Reference Range Interpretation Comments Lymphocytes (%) (Auto) (test code = 736-9) 25.6 18.0-39.1 [facility] HospitalMonocytes (%) (Auto)2018-08-06 18:40:00* Test Item Value Reference Range Interpretation Comments Monocytes (%) (Auto) (test code = 5905-5) 6.6 4.4-11.3 [facility] HospitalEosinophils (%) (Auto)2018-08-06 18:40:00 * Test Item Value Reference Range Interpretation Comments Eosinophils (%) (Auto) (test code = 713-8) 1.3 0.0-6.0 [facility] HospitalBasophils (%) (Auto)2018-08-06 18:40:00* Test Item Value Reference Range Interpretation Comments Basophils (%) (Auto) (test code = 706-2) 0.5 0.0-1.0 [facility] HospitalIM GRANULOCYTES %2018-08-06 18:40:00* Test Item Value Reference Range Interpretation Comments IM GRANULOCYTES % (test code = IM GRANULOCYTES %) 0.5 0.0- 1.0 [facility] HospitalNeutrophils # (Auto)2018-08-06 18:40:00* Test Item Value Reference Range Interpretation Comments Neutrophils # (Auto) (test code = 751-8) 5.1 2.1-6.9 [facility] HospitalLymphocytes # (Auto)2018-08-06 18:40:00* Test Item Value Reference Range Interpretation Comments Lymphocytes # (Auto) (test code = 51744-6) 2.0 1.0-3.2 [facility] HospitalMonocytes # (Auto)2018-08-06 18:40:00* Test Item Value Reference Range Interpretation Comments Monocytes # (Auto) (test code = 742-7) 0.5 0.2-0.8 [facility] HospitalEosinophils # (Auto)2018-08-06 18:40:00* Test Item Value Reference Range Interpretation Comments Eosinophils # (Auto) (test code = 711-2) 0.1 0.0-0.4 [facility] HospitalBasophils # (Auto)2018-08-06 18:40:00* Test Item Value Reference Range Interpretation Comments Basophils # (Auto) (test code = 704-7) 0.0 0.0-0.1 [facility] HospitalAbsolute Immature Granulocyte (auto 2018-08-06 18:40:00* Test Item Value Reference Range Interpretation Comments Absolute Immature Granulocyte (auto (evelia t code = Absolute Immature Granulocyte (auto) 0.04 0-0.1 [facility] HospitalCHEST SINGLE (NOT PORTABLE)2018-06-25 18:21:[address] [address] Patient Name: IVETTE DYSON MR #: [id number] : 1970 Age/Sex: 48/F Req #: [id number] Adm Physician: Ordered by: SAMIR EMMANUEL MD Report #: [id number] Location: ER Room/Bed: Procedure: [id number] DX/CHEST SINGLE (NOT PORTABLE) Exam Date: 06/25/18 [...] 06/25/181821 COPY TO: SAMIR EMMANUEL MD Bedside Wozfkfm0679-11-01 11:23:00* Test Item Value Reference Range Interpretation Comments Bedside Glucose (test code = 03565-5) 102 70-120 Meter ID: [id number] [facility] 2017-12-02 11:23:00* Test Item Value Reference Range Interpretation Comments Bedside Glucose (test code = 72319-4) 102 70-120 Meter ID: [id number] Memorial HospitalUrine Test 2017-12-02 11:12:00* Test Item Value Reference Range Interpretation Comments Urine Test (test code = 2106-3) NEGATIVE NEGATIVE [facility] HospitalUrine Osvy5090-15-66 11:12:00* Test Item Value Reference Range Interpretation Comments Urine Test (test code = 2106-3) NEGATIVE NEGATIVE [facility] HospitalUrine MOD0903-29-91 22:05:00* Test Item Value Reference Range Interpretation Comments Urine WBC (test code = 5821-4) NONE 0-5 [facility] HospitalUrine GRJ6912-47-02 22:05:00* Test Item Value Reference Range Interpretation Comments Urine RBC (test code = 74814-1) NONE 0-5 [facility] HospitalUrine Xfnmleca0487-38-21 22:05:00* Test Item Value Reference Range Interpretation Comments Urine Bacteria (test code = 59822-4) NONE NONE [facility] HospitalUrine Epithelial Bpnlv2050-65-60 22:05:00 * Test Item Value Reference Range Interpretation Comments Urine Epithelial Cells (test code = 65047-5) NONE NONE [facility] Mgbun3701-32-73 22:04:00* Test Item Value Reference Range Interpretation Comments Sodium Level (test code = 2951-2) 139 136-145 [facility] HospitalPotassium Pswvr6143-95-56 22:04:00* Test Item Value Reference Range Interpretation Comments Potassium Level (test code = 2823-3) 4.0 3.5-5.1 [facility] HospitalChloride Jfubk1498-03-94 22:04:00* Test Item Value Reference Range Interpretation Comments Chloride Level (test code = 2075-0) 104 98-107 [facility] HospitalCarbon Dioxide Nxtzm1196-42-59 22:04:00* Test Item Value Reference Range Interpretation Comments Carbon Dioxide Level (test code = 2028-9) 26 22-29 [facility] HospitalAnion Irk8934-46-56 22:04:00* Test Item Value Reference Range Interpretation Comments Anion Gap (test code = 02923-1) 13.0 8-16 [facility] HospitalBlood Urea Zkqogtwo1653-43-89 22:04:00* Test Item Value Reference Range Interpretation Comments Blood Urea Nitrogen (test code = 3094-0) 6 7-26 L [facility] HospitalCreatinine2018-03-09 22:04:00* Test Item Value Reference Range Interpretation Comments Creatinine (test code = 2160-0) 0.73 0.57-1.11 [facility] HospitalBUN/Creatinine Jndzh8558-85-97 22:04:00* Test Item Value Reference Range Interpretation Comments BUN/Creatinine Ratio (test code = 3097-3) 8 6-25 [facility] HospitalEstimat Glomerular Filtration Rate 2017-05-15 22:04:00* Test Item Value Reference Range Interpretation Comments Estimat Glomerular Filtration Rate (test code = 91450-3) 60- >60 Ranges were taken from the National Kidney Disease Education Program and the [facility] literature.Reference ranges:60 or greater: Tvrsce86-63 ( for 3 consecutive months): Chronic kidney disease 15 or less: Kidney failureUvalde Memorial HospitalGlucose Djowf0617-01-73 22:04:00* Test Item Value Reference Range Interpretation Comments Glucose Level (test code = RHI4382) 101 74-118 [facility] HospitalCalcium Ixtcw1382-96-26 22:04:00* Test Item Value Reference Range Interpretation Comments Calcium Level (test code = 62753-6) 8.8 8.4-10.2 [facility] HospitalTotal Tadvzfsej1006-02-12 22:04:00* Test Item Value Reference Range Interpretation Comments Total Bilirubin (test code = 1975-2) -0.3 0.2-1.2 [facility] HospitalAspartate Amino Transf (AST/SGOT) 2017-05-15 22:04:00* Test Item Value Reference Range Interpretation Comments Aspartate Amino Transf (AST/SGOT) (test code = Aspartate Amino Transf (AST/SGOT)) 27 5-34 [facility] HospitalAlanine Aminotransferase (ALT/SGPT) 2017-05-15 22:04:00* Test Item Value Reference Range Interpretation Comments Alanine Aminotransferase (ALT/SGPT) (test code = 1742-6) 31 0-55 [facility] HospitalTotal Yooxkrf6358-59-04 22:04:00* Test Item Value Reference Range Interpretation Comments Total Protein (test code = 2885-2) 8.0 6.5-8.1 [facility] HospitalAlbumin2018-03-09 22:04:00* Test Item Value Reference Range Interpretation Comments Albumin (test code = 1751-7) 3.9 3.5-5.0 [facility] HospitalGlobulin2018-03-09 22:04:00* Test Item Value Reference Range Interpretation Comments Globulin (test code = 34957-3) 4.1 2.3-3.5 H [facility] HospitalAlbumin/Globulin Koqnm4720-79-14 22:04:00 * Test Item Value Reference Range Interpretation Comments Albumin/Globulin Ratio (test code = 1759-0) 1.0 0.8-2.0 [facility] HospitalAlkaline Tevfsasnlki2565-67-49 22:04:00* Test Item Value Reference Range Interpretation Comments Alkaline Phosphatase (test code = 6768-6) 88 40-150 [facility] HospitalAmylase Lrsbv1033-25-15 22:04:00* Test Item Value Reference Range Interpretation Comments Amylase Level (test code = 1798-8) 61 25-125 [facility] HospitalLipase2018-03-09 22:04:00* Test Item Value Reference Range Interpretation Comments Lipase (test code = 3040-3) 28 8-78 [facility] HospitalUrine Qpbqh5301-37-19 21:50:00* Test Item Value Reference Range Interpretation Comments Urine Color (test code = 5778-6) YELLOW YELLOW [facility] HospitalUrine Bqaxhlw1119-59-88 21:50:00* Test Item Value Reference Range Interpretation Comments Urine Clarity (test code = 02547-8) CLEAR CLEAR [facility] HospitalUrine Specific Cfgrpgs1828-69-68 21:50:00 * Test Item Value Reference Range Interpretation Comments Urine Specific [place] (test code = 5811-5) 1.010 1.010-1.02 5 [facility] HospitalUrine oD2582-74-43 21:50:00* Test Item Value Reference Range Interpretation Comments Urine pH (test code = 38523-3) 6 5-7 [facility] HospitalUrine Leukocyte Mmgarqgu8070-87-15 21:50:00* Test Item Value Reference Range Interpretation Comments Urine Leukocyte Esterase (test code = 5799-2) NEGATIVE NEGATIVE [facility] HospitalUrine Wfxuzer6362-77-25 21:50:00* Test Item Value Reference Range Interpretation Comments Urine Nitrite (test code = 10544-8) NEGATIVE NEGATIVE [facility] HospitalUrine Pwbqonj7336-04-14 21:50:00* Test Item Value Reference Range Interpretation Comments Urine Protein (test code = 5804-0) NEGATIVE NEGATIVE [facility] HospitalUrine Glucose (UA)2017-05-15 21:50:00* Test Item Value Reference Range Interpretation Comments Urine Glucose (UA) (test code = 2349-9) NEGATIVE NEGATIVE [facility] HospitalUrine Upecnlu4626-81-64 21:50:00* Test Item Value Reference Range Interpretation Comments Urine Ketones (test code = 46067-0) NEGATIVE NEGATIVE [facility] HospitalUrine Sqmvzprvkucx0103-57-15 21:50:00* Test Item Value Reference Range Interpretation Comments Urine Urobilinogen (test code = 32456-9) 0.2 0.2-1 [facility] HospitalUrine Lnpqizwyh9812-71-12 21:50:00* Test Item Value Reference Range Interpretation Comments Urine Bilirubin (test code = 1978-6) NEGATIVE NEGATIVE [facility] HospitalUrine Cmsig1295-33-43 21:50:00* Test Item Value Reference Range Interpretation Comments Urine Blood (test code = 49692-8) NEGATIVE NEGATIVE [facility] HospitalWhite Blood Hjlcm4589-42-25 21:48:00* Test Item Value Reference Range Interpretation Comments White Blood Count (test code = 6690-2) 8.57 4.8-10.8 [facility] HospitalRed Blood Axcgh7717-08-32 21:48:00* Test Item Value Reference Range Interpretation Comments Red Blood Count (test code = 789-8) 4.42 3.6-5.1 [facility] HospitalHemoglobin2018-03-09 21:48:00* Test Item Value Reference Range Interpretation Comments Hemoglobin (test code = 49635-8) 12.6 12.0-16.0 [facility] HospitalHematocrit2018-03-09 21:48:00* Test Item Value Reference Range Interpretation Comments Hematocrit (test code = 4544-3) 38.0 34.2-44.1 [facility] HospitalMean Corpuscular Vszdrp3714-72-11 21:48:00* Test Item Value Reference Range Interpretation Comments Mean Corpuscular Volume (test code = 787-2) 86.0 81-99 [facility] HospitalMean Corpuscular Ksjfeyrvyt7362-77-47 21:48:00* Test Item Value Reference Range Interpretation Comments Mean Corpuscular Hemoglobin (test code = 785-6) 28.5 28-32 [facility] HospitalMean Corpuscular Hemoglobin Concent 2017-05-15 21:48:00* Test Item Value Reference Range Interpretation Comments Mean Corpuscular Hemoglobin Concent (test code = 786-4) 33.2 31-35 [facility] HospitalRed Cell Distribution Ewfib2025-32-39 21:48:00* Test Item Value Reference Range Interpretation Comments Red Cell Distribution Width (test code = 87068-2) 13.8 11.7 -14.4 [facility] HospitalPlatelet Jyscg5153-36-69 21:48:00* Test Item Value Reference Range Interpretation Comments Platelet Count (test code = 777-3) 283 140-360 [facility] HospitalNeutrophils (%) (Auto)2017-05-15 21:48:00 * Test Item Value Reference Range Interpretation Comments Neutrophils (%) (Auto) (test code = 64905-3) 55.6 38.7-80.0 [facility] HospitalLymphocytes (%) (Auto)2017-05-15 21:48:00 * Test Item Value Reference Range Interpretation Comments Lymphocytes (%) (Auto) (test code = 736-9) 34.0 18.0-39.1 [facility] HospitalMonocytes (%) (Auto)2017-05-15 21:48:00* Test Item Value Reference Range Interpretation Comments Monocytes (%) (Auto) (test code = 5905-5) 8.3 4.4-11.3 [facility] HospitalEosinophils (%) (Auto)2017-05-15 21:48:00 * Test Item Value Reference Range Interpretation Comments Eosinophils (%) (Auto) (test code = 713-8) 1.2 0.0-6.0 [facility] HospitalBasophils (%) (Auto)2017-05-15 21:48:00* Test Item Value Reference Range Interpretation Comments Basophils (%) (Auto) (test code = 706-2) 0.5 0.0-1.0 [facility] HospitalIM GRANULOCYTES %2017-05-15 21:48:00* Test Item Value Reference Range Interpretation Comments IM GRANULOCYTES % (test code = IM GRANULOCYTES %) 0.4 0.0- 1.0 [facility] HospitalNeutrophils # (Auto)2017-05-15 21:48:00* Test Item Value Reference Range Interpretation Comments Neutrophils # (Auto) (test code = 751-8) 4.8 2.1-6.9 [facility] HospitalLymphocytes # (Auto)2017-05-15 21:48:00* Test Item Value Reference Range Interpretation Comments Lymphocytes # (Auto) (test code = 03245-1) 2.9 1.0-3.2 [facility] HospitalMonocytes # (Auto)2017-05-15 21:48:00* Test Item Value Reference Range Interpretation Comments Monocytes # (Auto) (test code = 742-7) 0.7 0.2-0.8 [facility]Eosinophils # (Auto)2017-05-15 21:48:00* Test Item Value Reference Range Interpretation Comments Eosinophils # (Auto) (test code = 711-2) 0.1 0.0-0.4 [facility] (Auto)2017-05-15 21:48:00* Test Item Value Reference Range Interpretation Comments Basophils # (Auto) (test code = 704-7) 0.0 0.0-0.1 [facility] HospitalAbsolute Immature Granulocyte (auto 2017-05-15 21:48:00* Test Item Value Reference Range Interpretation Comments Absolute Immature Granulocyte (auto (evelia t code = Absolute Immature Granulocyte (auto) 0.03 0-0.1 [facility] [address] [place] [address] Patient Name: IVETTE DYSON MR #: [id number] : 1970 Age/Sex: 46/F Req #: [id number] Adm Physician: Ordered by: NATE SPRINGER Report #: [id number] Location: [place] Room/Bed: Procedure: [id number] NM/HEPTOBILIARY W PHARM Exam Date: 06/15/17 Exam [...] of 28% supports the clinical diagnosis of manager actuarial myles cholecystitis/gallbladder dyskinesia. Signed by: Dr. Dilip Ramirez M.D. on 06/15/2017 3:45 PM Dictated By: DILIP RAMIREZ MD [id number] Transcribed By: KAREN on 06/15/17 1549 COPY TO: NATE SPRINGER GALLBLADDER [place] [address] Patient Name: IVETTE GONZALEZ MR #: [id number] : 1970 Age/Sex: 46/F Req #: [id number] Adm Physician: Ordered by: DOT TRACY MD Report #: [id number] Location: ER Room/Bed: Procedure: [id number] US/US RUSLAN DDER Exam Date: 05/15/17 Exam Time: 2242 [...] 11:13 PM Dictated By: DANE PERSON MD [id number] COPY TO: RAUL TRACY MD
[2020-01-28 16:05] VITALS: BP 99/75
--- NOTE | 2020-01-28 16:05 | NUR ---
Received patient from ER. Respiration even and unlabored without SOB. Call light in reach. C/O discomfort around lower back, patient received MS IV in ER. Orientated to room and how to use the bed and call light.
[2020-01-28] MEDS ORDERED: LAMICTAL100 MG PO (16:51)
[2020-01-28 17:10] VITALS: BP 99/75
[2020-01-28] MEDS ORDERED: ALBUTEROL/IPRATROPIUM 3 ML NEB NEB PRN (18:15)
[2020-01-28] MEDS ORDERED: DEXTROSE 50% SYRINGE 50 ML IV PRN ×2 (18:15→19:30)
[2020-01-28] MEDS ORDERED: CEFEPIME 1GM/NS 0.9% 50 ML 50 ML IV SCH (18:15)
[2020-01-28] MEDS ORDERED: POLYETHYLENE GLYCOL 3350 17 GM PACK PO PRN (18:15)
[2020-01-28] MEDS ORDERED: DOCUSATE SODIUM 100 MG CAP PO PRN (18:15)
[2020-01-28] MEDS ORDERED: POTASSIUM CHLORIDE 20 MEQ TAB CR PO PRN (18:15)
[2020-01-28] MEDS ORDERED: BENZONATATE 100 MG CAP PO PRN (18:15)
[2020-01-28] MEDS ORDERED: MELATONIN 5 MG TABLET PO PRN (18:15)
[2020-01-28] MEDS ORDERED: ONDANSETRON HCL INJ 2MG/ML 2ML 2 MG/ML VIAL IV PRN (18:15)
[2020-01-28] MEDS ORDERED: HYDRALAZINE HCL 20 MG/ML VIAL IV PRN (18:15)
[2020-01-28] MEDS ORDERED: IBUPROFEN 600 MG TAB PO PRN (18:15)
[2020-01-28] MEDS: ALPRAZOLAM 0.25 MG TAB PO PRN (18:32)
[2020-01-28 20:00] VITALS: BP 95/54
[2020-01-28] MEDS: MEROPENEM 500MG/ NS 50ML 500 MG in MEROPENEM 500MG/ NS 50ML 50 ML IV SCH (20:09)
[2020-01-28 20:10] VITALS: BP 95/54
--- NOTE | 2020-01-28 20:17 | NUR ---
Called the answering service Dr. Jessica Leiva; left message
[2020-01-28] MEDS: INSULIN LISPRO 100 UNIT/1 ML 3ML VIAL SQ SCH (20:28)
--- NOTE | 2020-01-28 22:00 | NUR ---
Called Dr. Cota regarding sbp in 80's; received order for 1000ml bolus x1 over 2 hours and 10 mg midodrine x 1 now and q 8 hours
--- NOTE | 2020-01-28 22:53 | History and Physical ---
CHIEF COMPLAINT: Fever, bilateral flank pain. HISTORY OF PRESENT ILLNESS: A 49-year-old female, known COVID-19 pneumonia. She was diagnosed about 2 weeks ago. She is currently asymptomatic, comes in with complaints of fever and bilateral flank pain and underlying dysuria. The patient reports having history of urinary tract infection in the past. She now reports with worsening fever and bilateral flank pain. The patient was seen and evaluated at bedside on the medical floor. She is currently doing well with no other issues at this time. She came into the ED for further evaluation and management. IMAGING STUDIES: CT abdomen and pelvis consistent with perinephric fat stranding consistent with underlying ascending infection. REVIEW OF SYSTEMS: Pertinent positives: Fever, bilateral flank pain, dysuria. The rest of 14-point review of systems are reviewed with the patient and are negative. ALLERGIES: IODINE. PAST MEDICAL HISTORY: Diabetes, seizures, and narcolepsy. PAST SURGICAL HISTORY: She had x3. PAST FAMILY HISTORY: Hypertension and diabetes. SOCIAL HISTORY: No drugs, no alcohol, does not smoke. Good social support. PHYSICAL EXAMINATION: VITAL SIGNS: Temperature is 98.5, T-max 102.2, pulse 113, respiratory rate 17, pressure 113/67, pulse ox 97% on room air. GENERAL: Not in acute distress. Alert and oriented x3. Cooperative on examination. HEENT: Normocephalic and atraumatic. Eyes; pupils are equal, round, and reactive to light bilaterally. Extraocular movements intact bilaterally. Throat; no evidence of erythema or exudates in the posterior pharynx. Has poor dentition. NECK: Supple. Good range of motion throughout. PULMONARY: Clear to auscultation bilaterally. No wheezing, no rales, no rhonchi, no crackles appreciated. CARDIOVASCULAR: Positive S1 and S2. No murmurs, rubs, or gallops appreciated. ABDOMEN: Soft, nondistended, and nontender to palpation. Bowel sounds present. MUSCULOSKELETAL: Strength is 5/5 throughout. No evidence of any muscle deficits on examination. SKIN: Intact. Warm to touch. Good cap refill. PSYCHIATRIC: Normal affect and mood. EXTREMITIES: No edema. Good range of motion throughout. LABORATORY FINDINGS: Show white count was 16.8, hemoglobin 12.6, hematocrit 36.8, platelets of 192. Chemistry; sodium 135, potassium 3.3, chloride 99, bicarb 23, anion gap of 16, BUN is 10, creatinine is 0.75, glucose is 185, calcium is 8.2, total bilirubin is 1, AST 16, ALT 20, alkaline phosphatase 82, total protein 7, albumin was 3.3. Urinalysis, 2+ protein, cloudy urine. Large blood, nitrite negative, small leukocyte esterase, RBCs 21-50. WBCs 21-50. Urine was negative. Serology, coronavirus was detected. MICROBIOLOGY: Urine cultures are pending. IMAGING STUDIES: CT abdomen and pelvis showed hypoattenuation in the bilateral ureteral lopez with perinephric and neo ureteral fat stranding. These constellation of findings are highly suspicious for ascending urinary tract infection. was not well isolated due to lack of contrast. urinalysis. No obstructive renal or ureteral stones. No evidence of hydronephrosis. IMPRESSION: 1. Acute pyelonephritis with underlying fever with urinary tract infection. 2. History of seizures. 3. Type 2 diabetes. PLAN: At this time, urine and blood cultures pending, IV antibiotic therapy. CT imaging consistent with pyelonephritis as well as the patient's clinical exam and symptoms. Monitor cultures. Insulin sliding scale, Accu-Cheks, A1c. Continue with antiseizure medication. Get ID consultation for underlying COVID, but the patient is asymptomatic as likely to be noncontagious, but we will get ID to confirm to get the patient out of isolation if cleared by ID. Lovenox for DVT prophylaxis. Heart healthy diet. MD MARK Rivera/MODL /[id number]
[2020-01-29] VITALS (10 sets, daily range): BP systolic 88–125; BP diastolic 61–80
[2020-01-29] MEDS ORDERED: MIDODRINE 2.5 MG TAB PO ONE (00:15)
[2020-01-29] MEDS ORDERED: SODIUM CHLORIDE 0.9% 1000ML 1,000 ML IV ONE (00:30)
[2020-01-29] MEDS: MEROPENEM 500MG/ NS 50ML 500 MG in MEROPENEM 500MG/ NS 50ML 50 ML IV SCH ×4 (00:34→18:20)
[2020-01-29] MEDS: SODIUM CHLORIDE 0.9% 1000ML 1,000 ML IV SCH ×4 (00:35→21:12)
[2020-01-29 06:54] LABS: BASOPHILS # (AUTO) 0.1 (0.0-0.1); BASOPHILS % 0.3 % (0.0-1.0); EOSINOPHILS # (AUTO) 0.1 (0.0-0.4); EOSINOPHILS % 0.5 % (0.0-6.0); HEMATOCRIT 33.6 % (34.2-44.1); HEMOGLOBIN 11.3 g/dL (12.0-16.0); LYMPHOCYTES # (AUTO) 2.4 (1.0-3.2); LYMPHOCYTES % 16.3 % (18.0-39.1); MEAN CORPUSCULAR HEMOGLOBIN 30.2 pg (28-32); MEAN CORPUSCULAR HGB CONC 33.6 g/dL (31-35); MEAN CORPUSCULAR VOLUME 89.8 fL (81-99); MONOCYTES # (AUTO) 1.7 (0.2-0.8); MONOCYTES % 11.1 % (4.4-11.3); NEUTROPHILS # (AUTO) 10.6 (2.1-6.9); NEUTROPHILS % 71.3 % (38.7-80.0); PLATELET COUNT 188 x10e3/uL (140-360); RED BLOOD COUNT 3.74 x10e6/uL (3.6-5.1); RED CELL DISTRIBUTION WIDTH 13.5 % (11.7-14.4)
[2020-01-29 07:15] LABS: ALANINE AMINOTRANSFERASE 21 IU/L (0-55); ALBUMIN 2.7 g/dL (3.5-5.0); ALBUMIN/GLOBULIN RATIO 0.8 (0.8-2.0); ALKALINE PHOSPHATASE 76 IU/L (40-150); ANION GAP 10.3 mmol/L (8-16); BLOOD UREA NITROGEN 10 mg/dL (7-26); BUN/CREATININE RATIO 14 (6-25); CALCIUM 7.6 mg/dL (8.4-10.2); CARBON DIOXIDE 24 mmol/L (22-29); CHLORIDE 107 mmol/L (98-107); EST GLOMERULAR FILTRATION RATE > 60 ML/MIN (60-); GLUCOSE 139 mg/dL (74-118); POTASSIUM 3.3 mmol/L (3.5-5.1); SODIUM 138 mmol/L (136-145)
[2020-01-29] MEDS: INSULIN LISPRO 100 UNIT/1 ML 3ML VIAL SQ SCH ×4 (08:08→20:49)
[2020-01-29] MEDS: PANTOPRAZOLE SOD 40 MG TABEC PO SCH (09:10)
[2020-01-29] MEDS: MIDODRINE 2.5 MG TAB PO SCH ×4 (09:28→18:45)
[2020-01-29] MEDS: LAMOTRIGINE 100 MG TAB PO SCH (09:29)
--- NOTE | 2020-01-29 10:39 | NUR ---
A 49-year-old female, known COVID-19 pneumonia. She was diagnosed about 2 weeks ago. She is currently asymptomatic, comes in with complaints of fever and bilateral flank pain and underlying dysuria. The patient reports having history of urinary tract infection in the past. She now reports with worsening fever and bilateral flank pain. The patient was seen and evaluated at bedside on the medical floor. She is currently doing well with no other issues at this time. She came into the ED for further evaluation and management. IMAGING STUDIES: CT abdomen and pelvis consistent with perinephric fat stranding consistent with underlying ascending infection. REVIEW OF SYSTEMS: Pertinent positives: Fever, bilateral flank pain, dysuria. The rest of 14-point review of systems are reviewed with the patient and are negative. ALLERGIES: IODINE. PAST MEDICAL HISTORY: Diabetes, seizures, and narcolepsy. PAST SURGICAL HISTORY: She had x3. PAST FAMILY HISTORY: Hypertension and diabetes. SOCIAL HISTORY: No drugs, no alcohol, does not smoke. Good social support. dictated
[2020-01-29] MEDS: TRAMADOL HCL 50 MG TAB PO PRN (13:19)
--- NOTE | 2020-01-29 13:41 | Consultation ---
DATE OF CONSULTATION: REASON FOR CONSULTATION: 1. COVID-19. 2. UTI. HISTORY OF PRESENT ILLNESS: Thank you so much for seeing this patient, this is a very pleasant 49-year-old female, unfortunate her just from COVID-19. She was diagnosed with COVID-19 two weeks ago. She is coming with fever, chills and not feeling well. She was hypotensive yesterday. Today, she is not. The patient who had CAT scan which showed a perinephric fat stranding consistent with infection. PAST SURGICAL HISTORY: x3. FAMILY HISTORY: Hypertension and diabetes. At present time, the patient is feeling better. She is more alert. She has no complaints. She does have urgency or frequency. There is no shortness of breath whatsoever. The patient is not hypoxemic at all. LABORATORY DATA: White count 14.9, hemoglobin 11.3. Her COVID was positive. Sodium 138, creatinine 0.7, and liver enzyme within normal limit. Her urine culture is still pending. Her urine showed a cloudy. MEDICATIONS: She is currently on: 1. Lamictal. 2. Protonix. 3. Insulin. 4. She is given meropenem. 5. Xanax. PHYSICAL EXAMINATION: GENERAL: This is currently alert, oriented, does not seem to be in acute distress. VITAL SIGNS: Stable, currently afebrile. HEENT: She is not icteric. NECK: Supple. CHEST: Clear. HEART: S1, S2. ABDOMEN: Soft. Bowel sounds present. EXTREMITIES: No edema. SKIN: No rash. IMPRESSION: 1. I think the patient has UTI pyelonephritis. 2. COVID-19 was diagnosed two weeks ago and she is not hypoxic, so I do not think the patient is infectious at the present moment. I will treat her for UTI. Agree with IV fluid. I think there is component of dehydration also. She is already feeling better. The plan is IV fluid, IV antibiotic. Modify after the urine culture sensitivity. She is to continue with wearing mask and following this precaution as ordered since we are still limited epidemic, but there is no need to repeat PCR. MD JOANNA Ellis/SALOMON /[id number]
[2020-01-29] MEDS: ENOXAPARIN SOD INJ 40 MG/0.4 ML SYR SC SCH (18:20)
[2020-01-29] MEDS ORDERED: CHLORASEPTIC SPRAY 177 ML BTL MM PRN (19:00)
[2020-01-29] MEDS: KETOROLAC TROMETHAMINE 30 MG/ML VIAL IV SCH (21:11)
[2020-01-29] MEDS: ALPRAZOLAM 0.25 MG TAB PO PRN (21:12)
--- NOTE | 2020-01-29 23:28 | Progress Note ---
DATE: 01/29/2020 Medicine Progress Note SUBJECTIVE: The patient last night was very hypotensive, requiring normal saline bolus and oral midodrine. The patient's blood pressure much improved. She reports feeling much better now with no complaints. PHYSICAL EXAMINATION: VITAL SIGNS: Temperature is 99.3, pulse is 109, respiratory rate is 18, blood pressure is 106/67, pulse ox 98% on room air. GENERAL: No acute distress. Alert and oriented x3. Cooperative on examination. PULMONARY: Clear to auscultation bilaterally. No wheezing, rales, or rhonchi. No crackles appreciated. CARDIOVASCULAR: Positive S1 and S2. No murmur, rubs, or gallops appreciated. ABDOMEN: Soft, nondistended, nontender to palpation. Bowel sounds present. MUSCULOSKELETAL: Strength 5/5 throughout. NEUROLOGICAL: Cranial nerves II through XII are grossly intact. LABORATORY DATA: White count 14.9, hemoglobin 11.3, hematocrit 33.6, platelets of 188. Chemistry reviewed; sodium 138, potassium 3.3, chloride 107, bicarb 24, anion gap of 10, BUN 10, creatinine 0.7, glucose 139, calcium 7.6. Urinalysis noted to be UTI, coronavirus detected. Blood cultures, no growth. Urine cultures, no growth. IMAGING STUDIES: Nothing new. IMPRESSION: 1. Acute pyelonephritis with underlying fever and urinary tract infection. 2. History of seizures. 3. Type 2 diabetes. 4. COVID-19 pneumonia, asymptomatic. PLAN: At this time, blood and urine cultures were pending, IV antibiotic therapy. ID was consulted and evaluating closely. Monitor cultures. Insulin sliding scale. Repeat labs in the morning. Decrease oral midodrine to 5 mg p.o. b.i.d. Lovenox for DVT prophylaxis. MD MARK Rivera/SALOMON /[id number]
[2020-01-30] VITALS (7 sets, daily range): BP systolic 99–125; BP diastolic 62–84
[2020-01-30] MEDS: TRAMADOL HCL 50 MG TAB PO PRN (04:35)
[2020-01-30] MEDS: KETOROLAC TROMETHAMINE 30 MG/ML VIAL IV SCH ×2 (06:00→14:45)
[2020-01-30] MEDS: MEROPENEM 500MG/ NS 50ML 500 MG in MEROPENEM 500MG/ NS 50ML 50 ML IV SCH ×4 (06:00→17:36)
[2020-01-30 06:22] LABS: BASOPHILS % 0.3 % (0.0-1.0); EOSINOPHILS # (AUTO) 0.1 (0.0-0.4); EOSINOPHILS % 0.5 % (0.0-6.0); HEMATOCRIT 30.5 % (34.2-44.1); HEMOGLOBIN 9.9 g/dL (12.0-16.0); LYMPHOCYTES # (AUTO) 1.4 (1.0-3.2); LYMPHOCYTES % 14.8 % (18.0-39.1); MEAN CORPUSCULAR HEMOGLOBIN 29.7 pg (28-32); MEAN CORPUSCULAR HGB CONC 32.5 g/dL (31-35); MEAN CORPUSCULAR VOLUME 91.6 fL (81-99); MONOCYTES # (AUTO) 0.8 (0.2-0.8); MONOCYTES % 8.5 % (4.4-11.3); NEUTROPHILS # (AUTO) 7.2 (2.1-6.9); NEUTROPHILS % 75.6 % (38.7-80.0); PLATELET COUNT 143 x10e3/uL (140-360); RED BLOOD COUNT 3.33 x10e6/uL (3.6-5.1); RED CELL DISTRIBUTION WIDTH 13.8 % (11.7-14.4)
[2020-01-30 06:39] LABS: ANION GAP 11.5 mmol/L (8-16); BLOOD UREA NITROGEN 8 mg/dL (7-26); BUN/CREATININE RATIO 13 (6-25); CALCIUM 7.6 mg/dL (8.4-10.2); CARBON DIOXIDE 24 mmol/L (22-29); CHLORIDE 106 mmol/L (98-107); CREATININE, SERUM 0.64 mg/dL (0.57-1.11); EST GLOMERULAR FILTRATION RATE > 60 ML/MIN (60-); GLUCOSE 130 mg/dL (74-118); POTASSIUM 3.5 mmol/L (3.5-5.1); SODIUM 138 mmol/L (136-145)
--- NOTE | 2020-01-30 07:00 | NUR ---
RECEIVED BEDSIDE SHIFT REPORT FROM OFF GOING NIGHT NURSE. PATIENT IN STABLE CONDITION, NO S/S OF DISTRESS NOTED. PATIENT ABLE TO VOICE NEEDS. NO PAIN VOICED. RESPIRATIONS EVEN AND NONLABORED. IV FLUIDS INFUSING, SITE ASYMPTOMATIC AND PATIENT, TRANSPARENT DRESSING C/D/I. BED IN LOWEST POSITION AND LOCKED, SIDE RAILS X 2, NONSKID SOCKS APPLIED. CALL LIGHT WITHIN REACH.
[2020-01-30] MEDS: SODIUM CHLORIDE 0.9% 1000ML 1,000 ML IV SCH ×3 (07:30→23:30)
[2020-01-30] MEDS: PANTOPRAZOLE SOD 40 MG TABEC PO SCH (07:30)
[2020-01-30] MEDS: INSULIN LISPRO 100 UNIT/1 ML 3ML VIAL SQ SCH ×4 (07:30→20:40)
[2020-01-30] MEDS: LAMOTRIGINE 100 MG TAB PO SCH (09:51)
[2020-01-30] MEDS: MIDODRINE 2.5 MG TAB PO SCH ×2 (09:51→17:00)
--- NOTE | 2020-01-30 17:07 | NUR ---
INFECTIOUS DISEASE CONSULT NOTE DR. VINOD CARABALLO REASON FOR CONSULTATION: 1. COVID-19. 2. UTI. HISTORY OF PRESENT ILLNESS: Thank you so much for seeing this patient, this is a very pleasant 49-year-old female, unfortunate her just from COVID-19. She was diagnosed with COVID-19 two weeks ago. She is coming with fever, chills and not feeling well. She was hypotensive yesterday. Today, she is not. The patient who had CAT scan which showed a perinephric fat stranding consistent with infection. ROS At present time, the patient is feeling better. She is more alert. She has no complaints. She does have urgency or frequency. There is no shortness of breath whatsoever. The patient is not hypoxemic at all. LABORATORY DATA: per chart PHYSICAL EXAMINATION: GENERAL: This is currently alert, oriented, does not seem to be in acute distress. VITAL SIGNS: Stable, currently afebrile. HEENT: She is not icteric. NECK: Supple. CHEST: Clear. HEART: S1, S2. ABDOMEN: Soft. Bowel sounds present. EXTREMITIES: No edema. SKIN: No rash. IMPRESSION: UTI pyelonephritis. COVID-19 anxiety Leukocytosis PLAN: continue IV ABT as ordered will reassess in AM not infectious with covid Betsy Raman MSN, AEROTRIANGULATION SPECIALIST, AGACNP-BC examined with Vinod Caraballo M.D
[2020-01-30] MEDS: ENOXAPARIN SOD INJ 40 MG/0.4 ML SYR SC SCH (17:36)
--- NOTE | 2020-01-30 18:57 | NUR ---
COMPLETED BEDSIDE SHIFT REPORT AND ROUNDING WITH ONCOMING NIGHT NURSE. PATIENT IN STABLE CONDITION, NO S/S OF DISTRESS NOTED. PATIENT ABLE TO VOICE NEEDS. NO PAIN VOICED. RESPIRATIONS EVEN AND NONLABORED. IV FLUIDS INFUSING, SITE ASYMPTOMATIC AND PATIENT, TRANSPARENT DRESSING C/D/I. BED IN LOWEST POSITION AND LOCKED, SIDE RAILS X 2, NONSKID SOCKS APPLIED. CALL LIGHT WITHIN REACH.
[2020-01-30] MEDS ORDERED: TRAZODONE HCL 50 MG TAB PO SCH (21:00)
[2020-01-31 04:00] VITALS: BP 124/75
[2020-01-31] MEDS: MEROPENEM 500MG/ NS 50ML 500 MG in MEROPENEM 500MG/ NS 50ML 50 ML IV SCH ×2 (06:00)
[2020-01-31] MEDS: INSULIN LISPRO 100 UNIT/1 ML 3ML VIAL SQ SCH (07:30)
[2020-01-31 08:01] VITALS: BP 123/84
[2020-01-31 08:48] VITALS: BP 123/84
[2020-01-31] MEDS: PANTOPRAZOLE SOD 40 MG TABEC PO SCH (09:35)
[2020-01-31] MEDS: LAMOTRIGINE 100 MG TAB PO SCH (09:35)
--- NOTE | 2020-01-31 11:14 | NUR ---
doing better The patient who had CAT scan which showed a perinephric fat stranding consistent with infection. ROS At present time, the patient is feeling better. She is more alert. She has no complaints. She does have urgency or frequency. There is no shortness of breath whatsoever. The patient is not hypoxemic at all. LABORATORY DATA: per chart PHYSICAL EXAMINATION: GENERAL: This is currently alert, oriented, does not seem to be in acute distress. VITAL SIGNS: Stable, currently afebrile. HEENT: She is not icteric. NECK: Supple. CHEST: Clear. HEART: S1, S2. ABDOMEN: Soft. Bowel sounds present. EXTREMITIES: No edema. SKIN: No rash. IMPRESSION: UTI pyelonephritis. COVID-19 anxiety Leukocytosis dc home
[2020-01-31] MEDS ORDERED: TRAZODONE HCL50 MG PO (12:15)
[2020-01-31] MEDS ORDERED: CIPRO500 MG PO (12:16)
--- NOTE | 2020-01-31 12:43 | NUR ---
Discharged patient home, Alert with no distress, denies SOB and pain, Prescription and discharge instruction given, patient verbalized understanding, IV Canula removed with tip intact , no ss of infiltration , tele box returned , transported via wheelchair to [facility]
--- NOTE | 2020-01-31 13:50 | Progress Note ---
DATE: 01/30/2020 SUBJECTIVE: This is a late entry note. The patient was doing well today with no complaints. She was eager to be go home, but I am waiting for the final blood cultures and urine cultures. OBJECTIVE: VITAL SIGNS: She is afebrile. Normotensive. Respiratory rate is good. GENERAL: In no acute distress, alert and oriented x3. PULMONARY: Clear to auscultation bilaterally. No wheezing, rales, or rhonchi. No crackles appreciated. CARDIOVASCULAR: Positive S1, S2. No murmurs, rubs, or gallops. ABDOMEN: Soft, nontender to palpation. Bowel sounds present. MUSCULOSKELETAL: Strength is 5/5 throughout. NEUROLOGIC: Alert and oriented x3. LABORATORY DATA: CBC was stable. Chemistry was stable. Microbiology so far all cultures were negative. IMAGING STUDIES: None. IMPRESSION: 1. Acute pyelonephritis with underlying fever with urinary tract infection. 2. History of seizures. 3. Type 2 diabetes. 4. COVID-19 pneumonia, asymptomatic. PLAN: At this time, blood and urine cultures are pending. IV antibiotics. I did add trazodone. At this time, the patient reports she has difficulty sleeping. Monitor cultures closely. DC Lovenox for DVT prophylaxis. Potential discharge tomorrow. MD MARK Rivera/SALOMON /[id number]
--- NOTE | 2020-02-02 01:14 | Discharge Summary ---
FINAL DISCHARGE DIAGNOSES: 1. Acute pyelonephritis, underlying urinary tract infection. 2. COVID-19 asymptomatic symptoms. 3. Type 2 diabetes. 4. History of seizures. CONSULTANTS: Infectious Disease. PHYSICAL EXAMINATION: VITAL SIGNS: Temperature is 99.1, pulse 87, respiratory rate is 18, blood pressure 123/84, pulse ox 99% on room air. LABORATORY FINDINGS: Show white count 9.5, hemoglobin 9.9, hematocrit 31, platelets of 143. Chemistry; sodium 138, potassium 3.5, chloride 106, bicarb 24, anion gap of 11, BUN is 8, creatinine is 0.64, glucose is 130, calcium is 7.6. LFTs within normal range. Urinalysis; 21 to 50 rbcs, 21 to 50 wbcs, large blood noted, 2+ protein, nitrite negative, bacteria few. Serology, coronavirus was positive. MICROBIOLOGY: Blood cultures were no growth today, greater than 72 hours. Urine cultures showed to be a contaminant. HOSPITAL COURSE: A 49-year-old female, comes into the ED with bilateral flank pain with CT abdomen and pelvis findings showing to have bilateral ureteral lopez and perinephric fat stranding consistent with underlying pyelonephritis. The patient clinically had flank pain, also had underlying dysuria. Her UA and urine culture showed no evidence of any UTI, but the patient improved after initiation of IV antibiotic therapy. She also was found to have COVID-19 pneumonia, but this diagnosis was 2 weeks ago and she is currently asymptomatic. ID was consulted. The patient maintained on IV antibiotics while here in the hospital stay and her symptoms all resolved. She was afebrile. White count was normal. She improved throughout the hospital course. No treatment needed for the coronavirus as she is asymptomatic plus it has been ongoing for more than 2 weeks. As per her pyelonephritis, she was discharged on oral Cipro for 2 additional more weeks. She has been cleared for discharge by ID. On the day of discharge, vital signs were stable. Labs reviewed and stable. The patient is seen and evaluated and examined thoroughly. There are no other complaints. The patient verbalized understanding and agrees to plan of care to follow up accordingly as an outpatient with primary care physician in 1 week and ID physician in 1 to 2 weeks' time. MEDICATIONS: See med reconciliation form. DISPOSITION: Home. CONDITION: Stable. DIET: Heart healthy. In the event of any worsening symptoms, the patient was advised to come back to the ED for further evaluation. Discharge summary took greater than 35 minutes. MD MARK Rivera/SALOMON /[id number]
== END 2020-01-31 12:37 | disposition home or self-care (01) | DRG 689 ==
LOC: ER 12:22 → ERHOLD 15:20 → MED/SURG3 16:10
PROVIDERS: ADMIT Internal Medicine; ATTEND Internal Medicine
PROC: 8E0ZXY6 Isolation (ICD-10-PCS; principal; 2020-01-28)
DX: N10 Acute pyelonephritis (principal); U07.1 COVID-19; J12.9 Viral pneumonia, unspecified; E11.9 Type 2 diabetes mellitus without complications; G40.909 Epilepsy, unspecified, not intractable, without status epilepticus; Z79.4 Long term (current) use of insulin
CPT/HCPCS: 36415; 74176; 80048; 80053; 81001; 81025; 82948; 83605; 84443; 85025; 87040; 87086; 93005; 97139; 99284; J0360; J0696; J1650; J1885; J2270; J2405; J7030; U0002